=== PATIENT | male | born 1945 | race Caucasian/White ===

== ENCOUNTER 2024-03-16 08:41 | Outpatient (AMB) | payer OTHER, SELFPAY ==
--- NOTE | 2024-03-16 08:59 | MHC.OFFVIS ---
Vital Signs 03/16/24 09:00 Height 5 ft 7 in Weight 204 lb BMI 31.9 BP 116/66 Blood Pressure Location Rt brachial Position Sitting Respiration 16 Pulse 68 Pulse Source Pulse Oximeter Pulse Oximetry (%) 98 Oxygen Delivery Method Room Air Intake Visit Reasons: ENP-Neuropathy Intake Note: Pt presents to the office for new pt consultation for neuropathy. Inventory Taker Required: No Allergies ezetimibe [From Zetia] Allergy (Severe, Verified 03/16/24 09:00) Joint Pain tramadol [From Ultram] Allergy (Severe, Verified 03/16/24 09:00) Dizziness acetaminophen [From Percocet] Allergy (Unknown, Verified 03/16/24 09:00) Unknown oxycodone [From Percocet] Allergy (Unknown, Verified 03/16/24 09:00) Unknown Medication List - Last Reconciled 03/19/24 by TJ Rios aspirin 81 mg PO DAILY atorvastatin 20 mg PO DAILY coenzyme Q10 (Ultra CoQ10) 75 mg PO DAILY gabapentin 600 mg PO BID hydrochlorothiazide 25 mg PO DAILY lisinopril 10 mg PO DAILY metoprolol succinate ER 12.5 mg PO DAILY HPI Comments Details: 79-yr-old male presents for neurological evaluation of neuropathy. He would also like to discuss his sleep. Pt reports that he was diagnosed w/ BLE peripheral neuropathy in ~[address] Butt. His initial s/s were BLE feet tingling, burning pains, redness. Gradually overtime, he has developed numbness from his toes through mid-calf. He has episodes of increased tingling and burning pain at night which prevents him from sleeping, especially if he forgets to take the Gabapentin. Now when walking, he can feel pressure on his feet, but does not fully feel the ground. If he walks on a cold tile floor, he can feel the coldness. He does cycle- his feet do not bother him when he cycles. He has h/o lumbar lamine[place] [address] Mancia, however was told that BLE neuropathy was not r/t his lumbar spine. The lumbar repair was helpful, but his lumbar back can be flared up with certain activities or excess lifting. He takes Gabapentin 600-900mg q evening, as it takes about 3 hrs to take effect- as it makes him wake up in a daze and effects his cognition, and overall makes him more tired. In the past, he tried Amitriptyline 10mg qhs- states he had even worse side effects. He is complaint w/ ASA, statin. BP is normotensive. No h/o diabetes. Last HgAiC 5.7%. Last B12- > 2000 and folate- 15.9, CHO-126, TRG 160 H, HDL 44, LDL 50, TC-HDLC ratio- 2.9, Follows w/ Ivonne Akbar MD (Vascular Surgery) This is exacerbated by eating sugar and salt, or anything that causes inflammation. He is noticing that he is waking up earlier, so that while he used to get 8 hours of sleep, he now only gets about 6 hrs. He does not wake up w/ pain/burning in his feet. He goes to bed by 10:30pm, and falls asleep up to an hour later, and then wakes up around 5-5:30 or 6am. He used to take 1/2 naps- but now can only rest or take a 10-15 minute snooze after lunch- latest at 2pm. Takes 1-2 cups of coffee in the am. No soda, alcohol, marijuana, smoking. He endorses occasional mild feet swelling, feet still become red, feet become cold, can have leg cramps while walking and also at rest/sleep, legs can feel tired- but can walk > 2 miles w/ some breaks, slower overall. Some neck stiffness/tightness- such as when looking over his shoulder when on his bike, but no raditaiting pain. He denies restlessness, ulcers, snoring. He does ride an electric bicycle- ~10 miles at a time on a bike trail. In the past, he used to do long distance cycling. [facility] Medical History (Updated 03/19/24 @ 19:55 by TJ Rios) Urolithiasis Hyperlipidemia Obesity Essential hypertension Lumbar radiculitis Polyneuropathy Atrial tachycardia PAD (peripheral artery disease) Dyspnea Surgical History Hx of colonoscopy H/O hemorrhoidectomy Family History Mother Alzheimer dementia Father Myocardial infarct Brother Alcoholism Social History (Updated 03/16/24 @ 09:06 by Nicole Jones CMA) Household Members: Spouse Housing: House Alcohol intake: never Patient Tobacco Use Status: Never used Tobacco Review of Systems Const All systems reviewed & are unremarkable except as noted in HPI and below Physical Exam Vital Signs: Last Vital Signs Pulse 68 03/16/24 09:00 Resp 16 03/16/24 09:00 BP 116/66 03/16/24 09:00 Pulse Ox 98 03/16/24 09:00 Oxygen Delivery Method Room Air 03/16/24 09:00 BMI result Body Mass Index 31.9 Const General: cooperative and no acute distress Orientation/consciousness: patient oriented x3 HEENT Head: Yes normocephalic Resp Effort & Inspection: normal respiratory effort and able to speak in complete sentences Neuro Other: [facility] Mallampati stage IV BLE- decreased light touch from toes up through just below knees Decreased vibration sense- more so in the LLE Unable to do Tandem walk. Able to walk several steps on toes and heels. Left foot slightly cooler to touch than right- no edema, erythema, ulcers appreciated. General: patient oriented x3 and CN's II-XI intact bilaterally Gait exam (Neuro): Normal gait present Motor exam (neuro): 5/5 motor strength present throughout Deep tendon reflexes (DTR's): Right triceps reflex intensity grade: 2+, Left triceps reflex intensity grade: 2+, Rt Biceps (C5, C6): 2+, Left biceps reflex intensity grade: 2+, Right brachioradialis reflex intensity grade: 2+, Left brachioradialis reflex intensity grade: 2+, Right patellar reflex intensity grade: 2+ and Left patellar reflex intensity grade: 1+ Psych Appearance: grossly normal Mental Status: mental status grossly normal Speech and movement: Normal speech and movement present Affect: normal affect Attitude: cooperative Thought process: Normal thought process present Thought content: Normal thought content present Insight: Good insight present (Psych) Results Reviewed Results Reviewed: Arterial ultrasound 2022, DIAGNOSTIC TESTING: Arterial ultrasound showed slight elevated peak systolic velocity in the right femoral artery could represent mild stenosis, there is no significant stenosis or occlusion. Collateral vessels are noted in the region of the both anterior tibial arteries. Left leg multiple phasic waveforms throughout collaterals noted at the level of mid anterior tibial arteries. TOREY right leg 1. For, and left leg 1.5. Right toe index 0.7 left total index 1 2016, BLE eMG/NCS: IMPRESSION: 1. This is an abnormal study. 2. There is electrodiagnostic findings suggestive of a distal polyneuropathy, affecting both motor and sensory nerves, on BLE. It appears to be demyelinating in nature, but no conduction block seen. 3. No signs of lumbar radiculopathy or lumbosacral plexopathy. MRI OF LUMBAR SPINE W/WO CONTRAST Exam Date: 12/25/2018 1:40 PM Ordering Diagnosis: Lumbar radiculopathy ? MRI of the lumbosacral spine without intravenous contrast. History left radicular symptoms. Status post laminectomy at L4-5 level in 2014. Increasing pain radiating down to left leg. ? Examination was performed on 1.5 Tiffani magnet before administration of intravenous contrast, followed by postcontrast study after administration of 10 mL of Gadavist. Comparison with prior studies, latest 06/05/2018. ? The conus medullaris terminates at L1 level. Vertebral bodies are maintained in height. T12-L1 and L1-2 levels are unremarkable. ? At L2-3 level disc is decreased in T2 signal. There is bulging of the disc and hypertrophy of the facet joints. There is narrowing of the lateral recesses and L2 neural foramina with effacement of the L2 nerve roots. ? At L3-4 level disc is decreased in T2 signal. There is bulging of the disc and broad base bilateral lateral protrusion, more prominent to the left. There is compression of the L3 nerve roots, left more than right . There is hypertrophy of the facet joints and ligamentum flavum contributing to moderate spinal stenosis. ? At L4-5 level there is mild retrolisthesis of L4 over L5. There is diffuse bulging of the disc and marginal osteophytes. There is stenosis of the lateral recesses and thumb L4 neural foramina with possible compression of the L4 nerve roots. It is more prominent on the right. There is irregularity of the endplates with small Schmorl's nodes and Modic 1 changes with probably reactive enhancement. There is no abnormal enhancement within the disc or perivertebral soft tissues. There are stable post operative changes with evidence of central laminectomy. There is enhancement of the left L4 nerve root as well as mild enhancement of probably reactive in nature in the soft tissues surrounding the facet joints. There is moderate spinal stenosis. ? At L5-S1 level there is mild hypertrophy of the facet joints. There is no spinal stenosis or nerve root compression. ? When compared to his previous examination there is no significant interval change. ? CONCLUSIONS: Stable post operative and degenerative changes as detailed in the report. ? Reading Radiologist: Assessment & Plan Assessment & Plan (1) Polyneuropathy: Code(s): G62.9 - Polyneuropathy, unspecified Category: Medical (2) Sleep difficulties: Code(s): G47.9 - Sleep disorder, unspecified Category: Medical Plan Pt advised to undergo f/u BLE EMG/NCS to assess for progression of BLE motor and sensory, possibly demyelinating neuropathy. Consider additional work-up upon review of above. Trial OTC Alpha lipoic acid 600mg daily (or alternatively OTC Nervive Nerve Relief)- in hopes this helps painful paresthesias. Trial OTC Magnesium 250-500mg daily at bedtime- in hopes this helps leg cramps. Continue Gabapentin 600-900mg q evening. Previous trials: Amitriptyline 10mg qhs- not tolerated. Future considerations- adjusting Gabapentin, trial of pregabalin, topical analgesics. Encouraged to continue regular physical activity. Try increasing stretching/ROM, could consider gentle yoga. Will follow-up upon review of above and patient to follow-up in clinic in 6 months or sooner prn. Orders: Orders NE electromyogram (EMG) Today I73.9 - Peripheral vascular disease, unspecified, R20.1 - Hypoesthesia of skin, R20.2 - Paresthesia of skin, R25.2 - Cramp and spasm NE nerve conduction velocity Today I73.9 - Peripheral vascular disease, unspecified, R20.1 - Hypoesthesia of skin, R20.2 - Paresthesia of skin, R25.2 - Cramp and spasm Coding Level of Care Code New Pt Level 4 (51864) Diagnoses Polyneuropathy G62.9 Sleep difficulties G47.9
[2024-03-16 09:00] VITALS: BP 116/66; PULSE 68; RESP 16; O2SAT 98; BMI 31.9
== END 2024-03-16 10:28 | disposition home or self-care (01) ==
PROVIDERS: PCP Internal Medicine; Visit Provider Nurse Practitioner Family
DX: G62.9 Polyneuropathy, unspecified (principal); G47.9 Sleep disorder, unspecified
CPT/HCPCS: 99204

== ENCOUNTER → 2024-03-16 08:41 | Outpatient (BNVA) | payer OTHER, SELFPAY | PROVIDERS: PCP Internal Medicine; Visit Provider Nurse Practitioner Family | DX: G62.9 Polyneuropathy, unspecified (principal); G47.9 Sleep disorder, unspecified; R20.1 Hypoesthesia of skin; R20.2 Paresthesia of skin; R25.2 Cramp and spasm; I73.9 Peripheral vascular disease, unspecified | CPT/HCPCS: 99202 ==

== ENCOUNTER 2024-09-28 10:25 | Outpatient (AMB) | payer OTHER, SELFPAY ==
--- NOTE | 2024-09-28 10:29 | MHC.OFFVIS ---
Vital Signs 09/28/24 10:31 Height 5 ft 7 in Weight 204 lb BMI 31.9 BP 118/64 Blood Pressure Location Lt brachial Position Sitting Pulse 65 Pulse Source Pulse Oximeter Pulse Oximetry (%) 97 Oxygen Delivery Method Room Air Intake Visit Reasons: Follows Up Intake Note: Patient presents follow up polyneuropathy/sleep. 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 Accompanied by: Self / Same As Patient Allergies ezetimibe [From Zetia] Allergy (Severe, Verified 09/28/24 10:34) Joint Pain tramadol [From Ultram] Allergy (Severe, Verified 09/28/24 10:34) Dizziness acetaminophen [From Percocet] Allergy (Unknown, Verified 09/28/24 10:34) Unknown oxycodone [From Percocet] Allergy (Unknown, Verified 09/28/24 10:34) Unknown Medication List - Last Reconciled 09/28/24 by TJ Rios aspirin 81 mg PO DAILY atorvastatin 20 mg PO DAILY coenzyme Q10 (Ultra CoQ10) 75 mg PO DAILY gabapentin 600 mg PO BID hydrochlorothiazide 25 mg PO DAILY lisinopril 10 mg PO DAILY metoprolol succinate ER 12.5 mg PO DAILY pyridoxine (vitamin B6) 200 mg (2 x 100 mg) PO DAILY 60 days HPI Comments Details: The patient is a 79-year-old male presenting with neuropathy. Symptoms began 10 years prior with nerve overactivity at night and insomnia. He takes gabapentin for symptom management. The patient reports chronic fatigue and morning joint pain and swelling. patient also note that he has been recently evaluated for multiple Pulmonary nodules, which on biopsy were negative for malignancy however showed indications of inflammation.-. Patient asks if there is a potential link with inflammation. 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 Vitamin B12 levels high, Patient states he has been taking vitamin B12 supplements for some time. Vitamin B6 levels low <2- discussed that this could be contributing to neuropathy risk. rheumatoid factor elevated- in 70s. he has not previously seen rheumatology. 03/16/2024, initial HPI: 79-yr-old male presents for neurological evaluation of neuropathy. He would also like to discuss his sleep. Pt reports that he was diagnosed w/ BLE peripheral neuropathy in ~[address] Butt. His initial s/s were BLE feet tingling, burning pains, redness. Gradually overtime, he has developed numbness from his toes through mid-calf. He has episodes of increased tingling and burning pain at night which prevents him from sleeping, especially if he forgets to take the Gabapentin. Now when walking, he can feel pressure on his feet, but does not fully feel the ground. If he walks on a cold tile floor, he can feel the coldness. He does cycle- his feet do not bother him when he cycles. He has h/o lumbar l[place] [address] Mancia, however was told that BLE neuropathy was not r/t his lumbar spine. The lumbar repair was helpful, but his lumbar back can be flared up with certain activities or excess lifting. He takes Gabapentin 600-900mg q evening, as it takes about 3 hrs to take effect- as it makes him wake up in a daze and effects his cognition, and overall makes him more tired. In the past, he tried Amitriptyline 10mg qhs- states he had even worse side effects. He is complaint w/ ASA, statin. BP is normotensive. No h/o diabetes. Last HgAiC 5.7%. Last B12- > 2000 and folate- 15.9, CHO-126, TRG 160 H, HDL 44, LDL 50, TC-HDLC ratio- 2.9, Follows w/ Ivonne Akbar MD (Vascular Surgery) This is exacerbated by eating sugar and salt, or anything that causes inflammation. He is noticing that he is waking up earlier, so that while he used to get 8 hours of sleep, he now only gets about 6 hrs. He does not wake up w/ pain/burning in his feet. He goes to bed by 10:30pm, and falls asleep up to an hour later, and then wakes up around 5-5:30 or 6am. He used to take 1/2 naps- but now can only rest or take a 10-15 minute snooze after lunch- latest at 2pm. Takes 1-2 cups of coffee in the am. No soda, alcohol, marijuana, smoking. He endorses occasional mild feet swelling, feet still become red, feet become cold, can have leg cramps while walking and also at rest/sleep, legs can feel tired- but can walk > 2 miles w/ some breaks, slower overall. Some neck stiffness/tightness- such as when looking over his shoulder when on his bike, but no raditaiting pain. He denies restlessness, ulcers, snoring. He does ride an electric bicycle- ~10 miles at a time on a bike trail. In the past, he used to do long distance cycling. [facility] Medical History (Updated 09/28/24 @ 11:22 by TJ Rios) Urolithiasis Hyperlipidemia Obesity Essential hypertension Lumbar radiculitis Polyneuropathy Atrial tachycardia PAD (peripheral artery disease) Dyspnea Surgical History Hx of colonoscopy H/O hemorrhoidectomy Family History Mother Alzheimer dementia Father Myocardial infarct Brother Alcoholism Social History Household Members: Spouse Housing: House Alcohol intake: never Patient Tobacco Use Status: Never used Tobacco Physical Exam Vital Signs: Last Vital Signs Pulse 65 09/28/24 10:31 BP 118/64 09/28/24 10:31 Pulse Ox 97 09/28/24 10:31 Oxygen Delivery Method Room Air 09/28/24 10:31 BMI result Body Mass Index 31.9 Const General: cooperative and no acute distress Orientation/consciousness: patient oriented x3 Resp Effort & Inspection: normal respiratory effort and able to speak in complete sentences Neuro Other: [place] General: patient oriented x3 and CN's II-XI intact bilaterally Gait exam (Neuro): Normal gait present Psych Appearance: grossly normal Mental Status: mental status grossly normal Speech and movement: Normal speech and movement present Affect: normal affect Attitude: cooperative Assessment & Plan Assessment & Plan (1) Polyneuropathy: Comment: Apr 2024 BLE EMG/NCS: sensory axonal neuropathy Code(s): G62.9 - Polyneuropathy, unspecified Category: Medical (2) Elevated rheumatoid factor: Code(s): R76.8 - Other specified abnormal immunological findings in serum Category: Medical (3) Joint pain: Code(s): M25.50 - Pain in unspecified joint Category: Medical (4) Sleep difficulties: Code(s): G47.9 - Sleep disorder, unspecified Category: Medical Plan Discussion Notes During the visit, I discussed with the patient the importance of managing neuropathy symptoms with gabapentin and addressed the need to carefully monitor and supplement Vitamin B6 levels given its role in neuropathy and the risk if overcorrected. We covered the elevated Vitamin B12 levels due to supplementation and advised reduction. The elevated rheumatoid factor indicates a potential autoimmune arthritis, and I suggested a rheumatology consult to explore conditions such as rheumatoid arthritis. We also discussed the implications of inflammation and its connection to pulmonary nodules, recommending ongoing monitoring with his care team. I encouraged the patient to establish or reestablish care with a [facility] provider to determine if his neuropathy would be considered a service-connected conditions, considering exposures during his service. The patient was receptive to this management plan and agreed to follow up as discussed. Patient was informed and verbally consented to the use of an ambient scribe for clinic note documentation during this visit. Patient Instructions - Continue gabapentin 600 mg twice a day to manage neuropathy. - Start Vitamin B6 200 mg daily x2 months - then recheck vitamin B6 level in mid November- lab slip given to patient. - Reduce intake of Vitamin B12 supplements To 3 times per week. - Will request forensic examiner consultation for joint pain and elevated rheumatoid factor. - Follow-up with care team for pulmonary nodules monitoring as scheduled. - Consider contacting the [facility] for a potential evaluation of neuropathy as a service-connected condition. Will follow-up upon review of above and patient to follow-up in clinic in 6 months or sooner prn. Orders: Orders Vitamin B6 Today M25.50 - Pain in unspecified joint, R20.2 - Paresthesia of skin, R76.8 - Other specified abnormal immunological findings in serum Referrals Rheumatology Referral M25.50 - Pain in unspecified joint, R20.2 - Paresthesia of skin, R76.8 - Other specified abnormal immunological findings in serum Medications: New pyridoxine (vitamin B6) 200 mg (2 x 100 mg) PO DAILY 60 days 120 tabs 1RF Coding Level of Care Code Est Pt Level 4 (43618) Diagnoses Polyneuropathy G62.9 Elevated rheumatoid factor R76.8 Joint pain M25.50 Sleep difficulties G47.9
[2024-09-28 10:31] VITALS: BP 118/64; PULSE 65; O2SAT 97; BMI 31.9
--- OUTSIDE RECORDS SUMMARY | 2024-09-28 11:47 | XMS_ITS | Encounter Summary ---
Author Organization [facility] Address [address] [place] [address] Care Team Providers Care Welfare Manager Name Role Phone Dwayne Adams MD Primary Care Provider [phone] Reason for Visit * Reason Onset Date Comments Med Refill 09/26/2024 Encounter Details Date Type Department Care Team (Late st Contact Info) Description 09/26/2024 Telephone [facility] [address] [facility] [address] [place] [id number] Ena Mendosa MD [address] [place] [address] Med Refill Social History Tobacco Use Types Packs/Day Years Used Date Smoking Tobacco: Never Smokeless Tobacco: Never Alcohol Use Standard Drinks/Week Comments Not Currently 0 (1 standard drink = 0.6 oz pur e alcohol) Housing Instability Answer Date Recorde d Are you worried that in the next 2 months you may not have stable housing? No 09/16/2024 Food Access & Nutrition Answer Date Rec orded Do you have access to a vari ety of food including fruits and vegetables? Yes 09/16/2024 Access to Healthcare Answer Date Record ed Within the last 3 months, ho w many times did you visit the emergency department for your medical care? 0 09/16/2024 Health Literacy Answer Date Recorded How often do you need to hav e someone help you when you read instructions, pamphlets, or other written material from your doctor or pharmacy? Rarely 09/16/2024 Caregiver: How often do you need to have someone help you when you read instructions, pamphlets, or other written material from your doctor or pharmacy? Not on file 09/16/2024 Financial Risk Answer Date Recorded How hard is it for you to pa y for the very basics like food, housing, medical care, and air conditioning / heating? Somewhat hard 09/16/2024 Transportation Answer Date Recorded Has the lack of transportati on kept you from meetings, work, or from getting things needed for daily living? No Has the lack of transportati on kept you from medical appointments or from getting medications? No 09/16/2024 Social Isolation Answer Date Recorded How often do you feel lonely or isolated from th ose around you? Rarely 09/16/2024 Food Risk Answer Date Recorded Within the past 12 months we worried whether our food would run out before we got money to buy more. Never true 09/16/2024 Within the past 12 months th e food we bought just didn't last and we didn't have money to get more. Never true 09/16/2024 Dependent Care Answer Date Recorded Do you need help finding or paying for care for your loved ones. For example, children's program coordinator or elderly care for an older adult? No 09/16/2024 Education Answer Date Recorded Do you think completing more education or training, like finishing a GED, going to college, or learning a trade, would be helpful for you? Patient declined 09/16/2024 Employment and Income Answer Date Recor ded During the last four weeks, have you been actively looking for work? Patient declined 09/16/2024 Living Situation Answer Date Recorded What is your living situation? 0 09/16/2024 Interpersonal Safety Answer Date Record ed Physical Abuse 09/19/2024 Verbal Abuse 09/19/2024 Sex and Gender Information Value Date Recorded Sex Assigned at Male 06/19/2024 10:24 AM EST Legal Sex Male 8:32 PM EST Gender Identity Male 06/19/2024 10:24 AM EST Sexual Orientation Straight 09/11/2024 10 :13 AM EST Travel History Travel Start Travel End [place] 08/14/2024 09/14/2024 documented as of this encounter Ordered Prescriptions Prescription Sig Dispense Quantity Refills Last Filled Start Date End Date atorvastatin (LIPITOR) 20 mg tablet Take 1 tablet (20 mg total) by mouth at bedtime. 90 tablet 1 09/26/2024 documented in this encounter Progress Notes * Josselyn Alcocer MA - 09/26/2024 3:55 PM EDT Rx renewed. * Bridget Sandoval - 09/26/2024 2:33 PM EDT Patient is completely out of this medication. * Bridget Sandoval - 09/26/2024 2:20 PM EDT Patient called requesting refill for Atorvastatin 20 mg, one tablet daily. Please send 90 day supply to [facility]. documented in this encounter Plan of Treatment Upcoming Encounters Date Type Department Care Team (Late st Contact Info) Description 10/16/2024 10:30 AM EDT Office Visit Internal Medicine - [address] [phone] Dwayne Adams MD [address] [place] [id number] 05/16/2025 10:50 AM EDT Office Visit [facility] [address] [phone] Ena Mendosa MD [address] [place] [address] documented as of this encounter Visit Diagnoses Not on filedocumented in this encounter Discontinued Medications Medication Sig Discontinue Reason Start Date End Da te atorvastatin (LIPITOR) 20 mg tablet Take 1 tablet (20 mg total) by mouth at bedtime. Reorder 09/24/2022 09/26/2024 documented as of this encounter Additional Health Concerns Assessment Noted Time PHQ-9 Depression Total Score: 0 09/14/19 10:04 AM EST documented as of this encounter Care Teams Welfare Manager Relationship Specialty Start Date End Date Dwayne Adams MD [address] [place] [id number] PCP - General Internal Medicine 02/19/20 documented as of this encounter
--- OUTSIDE RECORDS SUMMARY | 2024-09-28 11:47 | XMS_ITS ---
Author Name [facility] Organization Unknown Results Test Name/Text Value Interpretation Date Range Source Citation Ref Lab Test The technical components of this case were performed at [address] [address] CLIA # [id number] Normal [id number] [facility] Service Cmnt-Imp [facility] ([id number]) for more information. Becker slides have been reviewed at the intradepartmental conference at [place], [place] on 09/20/24. Normal [id number] [facility] Citation Ref Lab Test The technical components of this case were performed at [address] [address] CLIA # [id number] Normal [id number] [facility] Clinical Information IN [place] Normal [id number] [facility] History of Medication Use Medication Directions Dispensed Refills Start Date End Date Status meperidine (PF) (DEMEROL) 25 mg/mL injection 12.5 mg 12.5 mg, intravenous, Every 15 min PRN, rigors, shivering, Starting on Tue09/19/24 at 1326, For 4 doses, Recovery (only) 5 active HYDROmorphone (DILAUDID) injection 0.5 mg 0.5 mg, intravenous, Every 15 min PRN, severe pain or when therapies for moderate pain were not effective, Starting on Tue09/19/24 at 1326, For 4 doses, Recovery (only) 5 active cyanocobalamin, vitamin B-12, (VITAMIN B-12 ORAL) Take 1 tablet by mouth 1 (one) time each day. active lactated Ringer's infusion 100 mL/hr, intravenous, Continuous, Starting on Tue09/19/24 at 1345, Recovery (only) 5 active ondansetron ODT (ZOFRAN-ODT) disintegrating tablet 4 mg [Order 1 Start] Name: ondansetron ODT (ZOFRAN-ODT) disintegrating tablet 4 mg Signed Summary: 4 mg, oral, Every 8 hours PRN, vomiting, nausea, Starting on Tue09/19/24 at 1326, Recovery (only), -Give IV if patient is unable to take orally. -If inadequate response within 30 minutes, proceed to next-debbie 5 active diphenhydrAMINE (BENADRYL) injection 25 mg 25 mg, intravenous, Every 15 min PRN, itching, Starting on Tue09/19/24 at 1326, For 2 doses, Recovery (only) 5 active aspirin 81 mg EC tablet Take 1 tablet (8 1 mg total) by mouth 1 (one) time each day. 2 active B complex (Vitamins B Complex) tablet Take 1 tablet by mouth 1 (one) time each day. active atorvastatin (LIPITOR) 20 mg tablet Take 1 tablet (20 mg total) by mouth 1 (one) time each day. 3 active diclofenac (Voltaren) 1 % topical gel Apply 1 g topically 1 (one) time each day if needed (for painful areas on feet/toes). 8 active metoprolol succinate (TOPROL-XL) 25 mg 24 hr tablet TAKE 1/2 TABLET BY MOUTH EVERY DAY 4 active docusate sodium (COLACE) 100 mg capsule Take 1 capsule (100 mg total) by mouth 2 (two) times a day. 4 active gabapentin (NEURONTIN) 300 mg capsule Take 1-4 capsules (300-1,200 mg total) by mouth at bedtime. active albuterol HFA (PROAIR HFA ; PROVENTIL HFA ; VENTOLIN HFA) 90 mcg/actuation inhaler Inhale 2 puffs every 4 (four) hours if needed for shortness of breath or wheezing. 1 active lisinopriL (PRINIVIL,ZESTRIL) 10 mg tablet TAKE 1 TABLET BY MOUTH EVERY DAY 5 active hydroCHLOROthiazide (HYDRODIURIL) 25 mg tablet TAKE 1 TABLET BY MOUTH DAILY 5 active omega-3 fatty acids (Super [place]-3) 1,000 mg capsule Take 2 tablets by mouth 1 (one) time each day. 3 active Problems Problem Status Onset Date Problem Type Date of Resolution Source Pulmonary nodule active 2024-07-09 ProblemAct C [facility] Obesity (BMI 30-39.9) active 2010-09-24 ProblemAct [facility] Urolithiasis active 2006-03-22 ProblemAct [facility] Lumbar radiculitis active 2015-04-29 ProblemAct [facility] PAD (peripheral artery disease) active 2021-10-13 ProblemAct [facility] History of basal cell carcinoma active 2018-10-11 ProblemAct [facility] Essential hypertension active 2015-04-29 ProblemAct [facility] Hyperlipidemia active 2007-06-26 ProblemAct [facility] Hiatal hernia active 2024-07-09 ProblemAct [facility] Atrial tachycardia active 2021-09-16 ProblemAct [facility] Pain active EncounterDiagnosisAct [facility] Dyspnea on exertion active 2023-01-10 ProblemAct [facility] Polyneuropathy active 2015-10-02 ProblemAct [facility] Immunizations Vaccine Date Source Lot Number Status Pneumococcal polysaccharide 23 valent (Pneumovax 23) 2yo and older 12/19/2012 [facility] [id number] com pleted Influenza trivalent, with pr eservative (Fluzone; Afluria) 6mo and older 04/29/2015 [facility] [id number] completed Influenza trivalent, 0.5mL ( Fluzone High-dose) 65yo and older 04/13/2018 [facility] [id number] comple yudi Influenza trivalent, 0.5mL ( Fluzone High-dose) 65yo and older 04/06/2019 [facility] [id number] comple yudi Tdap Tetanus diptheria acell ular pertussis (Boostrix; Adacel) 7yo and older 07/30/2011 [facility] [id number] completed Influenza trivalent, 0.5mL ( Fluzone High-dose) 65yo and older 04/23/2020 [facility] [id number] comple yudi Influenza trivalent, 0.5mL ( Fluzone High-dose) 65yo and older 05/26/2023 [facility] [id number] comple yudi Influenza trivalent, with pr eservative (Fluzone; Afluria) 6mo and older 03/30/2011 [facility] [id number] completed Influenza trivalent, 0.5mL ( Fluzone High-dose) 65yo and older 04/29/2021 [facility] [id number] comple yudi Pneumococcal conjugate 13 va lent (Prevnar 13, PCV13) 2mo and older 03/11/2016 [facility] [id number] complet ed Pfizer SARS-CoV-2 COVID-19, mRNA, LNP-S, preservative free 02/10/2022 [facility] completed Pneumococcal polysaccharide 23 valent (Pneumovax 23) 2yo and older 06/17/1993 [facility] com pleted Influenza trivalent, with pr eservative (Fluzone; Afluria) 6mo and older 08/16/2016 [facility] [id number] completed Influenza trivalent, with pr eservative (Fluzone; Afluria) 6mo and older 07/14/2009 [facility] [id number] completed Influenza trivalent, with pr eservative (Fluzone; Afluria) 6mo and older 05/19/2007 [facility] [id number] completed Pfizer SARS-CoV-2 COVID-19, mRNA, LNP-S, preservative free 10/14/2020 [facility] [id number] completed Influenza trivalent, with pr eservative (Fluzone; Afluria) 6mo and older 04/23/2013 [facility] [id number] completed Pfizer SARS-CoV-2 COVID-19, mRNA, LNP-S, preservative free 05/12/2021 [facility] [id number] completed Influenza trivalent, 0.5mL ( Fluzone High-dose) 65yo and older 03/29/2022 [facility] [id number] comple yudi Pfizer SARS-CoV-2 COVID-19, mRNA, LNP-S, preservative free 11/05/2020 [facility] [id number] completed Influenza trivalent, with pr eservative (Fluzone; Afluria) 6mo and older 03/26/2010 [facility] [id number] completed Influenza trivalent, with pr eservative (Fluzone; Afluria) 6mo and older 05/09/2014 [facility] [id number] completed Influenza trivalent, with pr eservative (Fluzone; Afluria) 6mo and older 04/24/2012 [facility] [id number] completed Influenza Quadravalent, MDCK , 0.5ml, with preservative (Flucelvax) 6mo and older 05/12/2017 [facility] [id number] completed Td Tetanus diptheria (Tdvax) 7yo and older 02/16/2017 [facility]_T HS[facility] [id number] completed Influenza trivalent, with pr eservative (Fluzone; Afluria) 6mo and older 04/23/2008 [facility] [id number] completed Zoster Live 01/22/2013 [facility] [id number] completed Encounters Encounter Type Encounter Reason Primary Diagnosis Location Date Ambulatory Pain, unspecified Pain, unspecified [facility] 09/19/2024 Ambulatory Solitary pulmonary nodule Solitary pulmonary nodule [facility] 09/19/2024 Care Team Organization Name Specialty Phone Email Start Date End Da te [facility] 09/25/[address] [facility] D[facility] 09/19/2024
--- OUTSIDE RECORDS SUMMARY | 2024-09-28 11:47 | XMS_ITS | Clinical Summary ---
Author Organization [facility] Address [address] [place] [address] Care Team Providers Care General Office Worker Name Role Phone Dwayne Adams MD Primary Care Provider [phone] Allergies Active Allergy Reactions Criticality Noted Date Comments Oxycodone-Acetaminophen 11/16/2023 Medications Medication Sig Dispensed Refills Start Date End Date Status atorvastatin (LIPITOR) tablet 20 mg Take 1 tablet (20 mg total) by mouth daily. 0 Active lisinopril (PRINIVIL,ZESTRIL) tablet 10 mg Take 1 tablet (10 mg total) by mouth daily. 0 Active hydroCHLOROthiazide (HYDRODIURIL) tablet 25 mg Take 1 tablet (25 mg total) by mouth daily. 0 Active metoprolol succinate (TOPROL-XL) 24 hr tablet 25 mg Take 0.5 tablets (12.5 mg total) by mouth daily. 0 Active gabapentin (NEURONTIN) 300 MG capsule Take 1 capsule (300 mg total) by mouth 3 (three) times a day. 0 Active Active Problems No known active problems Family History Medical History Relation Name Comments Cancer Sister Relation Name Status Comments Sister Social History Tobacco Use Types Packs/Day Years Used Date Smoking Tobacco: Never Smokeless Tobacco: Never Tobacco Cessation:Counseling Given: Not Answered Alcohol Use Standard Drinks/Week Comments Not Currently 0 (1 standard drink = 0.6 oz pur e alcohol) Sex and Gender Information Value Date Recorded Sex Assigned at Not on file Gender Identity Not on file Sexual Orientation Not on file Job Start Date Occupation Industry Not on file Not on file Not on file Last Filed Vital Signs Vital Sign Reading Time Taken Comments Blood Pressure 123/64 11/16/2023 11:04 AM EDT Pulse 66 11/16/2023 11:04 AM EDT Temperature 36.6 ??C (97.8 ??F) 11/16/2023 11:04 AM E DT Respiratory Rate - - Oxygen Saturation 99% 11/16/2023 11:04 AM EDT Inhaled Oxygen Concentration - - Weight 92.4 kg (203 lb 9.6 oz) 11/16/2023 11:04 AM EDT Height - - Body Mass Index - - Plan of Treatment Health Maintenance Due Date Last Done Comments Hepatitis C Screening 1945 Depression Screening 1959 Preventative Health Evaluation 1965 Shingrix-Zoster Vaccine (1 of 2) 1997 Fall Risk Assessment 01/06/2012 DTap / Tdap / Td (2 - Td or Tdap) 07/30/2021 07/30/2011 RSV Adult > 60+ Yrs or (1 - 1-dose 75+ series) 2022 COVID-19 Vaccine ( - season) 2024 02/10/2022, 05/12/2021, 11/05/2020, Additional history exists Influenza Vaccine (#1) 2024 , 03/29/2022, 04/29/2021, Additional history exists Pneumococcal Vaccine Completed 03/11/2016, 12/19/2012, 06/17/1993 Hepatitis B Vaccines Aged Out No long er eligible based on patient's age to complete this topic RSV Ped < 20 months Aged Out No longe r eligible based on patient's age to complete this topic Care Teams General Office Worker Relationship Specialty Start Date End Date Dwayne Adams MD [address] [place] [id number] PCP - General Internal Medicine 11/16/23
--- OUTSIDE RECORDS SUMMARY | 2024-09-28 11:47 | XMS_ITS | Encounter Summary ---
Author Organization [facility] Address [address] [place] [address] Care Team Providers Care Physical Scientist Name Role Phone Dwayne Adams MD Primary Care Provider [phone] Reason for Referral * Consultation (Routine) - Closed Specialty Diagnoses / Procedures Referred By Contact Referred To Contact Pulmonary Disease / Pulmonology Diagnoses Pulmonary nodule Dwayne Adams MD [address] [place] [address] Phone: tel: fax: Pulmonology [address] [place] [phone] Phone: tel: fax: Referral ID Status Reason Start Date Expiration Date V isits Requested Visits Authorized [id number] Closed Specialty Services Required 09/04/2024 09/04/2025 12 12 Reason for Visit * Reason Onset Date Comments Referral 09/04/2024 Encounter Details Date Type Department Care Team (Late st Contact Info) Description 09/04/2024 Telephone Internal Medicine - [facility] [address] [place] [phone] Dwayne Adams MD [address] [place] [phone] Referral Social History Tobacco Use Types Packs/Day Years Used Date Smoking Tobacco: Never Smokeless Tobacco: Never Alcohol Use Standard Drinks/Week Comments Yes 0 (1 standard drink = 0.6 oz pur e alcohol) Sex and Gender Information Value Date Recorded Sex Assigned at Male 06/19/2024 10:24 AM EST Legal Sex Male 8:32 PM EST Gender Identity Male 06/19/2024 10:24 AM EST Sexual Orientation Straight 09/11/2024 10 :13 AM EST Travel History Travel Start Travel End [place] 08/14/2024 09/14/2024 documented as of this encounter Progress Notes * Dwayne Adams MD - 09/04/2024 6:51 PM EST I have changed the referral to interventional pulmonology (Dr Saenz) * Abbi Mcallister MA - 09/04/2024 1:55 PM EST Last seen 05/09/24, next appt 09/17/24. Referral pended. * Georgia Juarez - 09/04/2024 1:48 PM EST Referral Request: Out of Network Referral What insurance does the patient have today? [place] [employer] Referrals cannot be processed if the insurance is not accurate. If the insurance listed above in red is NO BILLING INFORMATION FOUND FOR THIS ENCOUTNER The patients correct insurance must be obtained and registered in [facility] or their referral can not be processed. Is this a retro request? no. If yes for what date of service do you need the retro referral? not applicable Who is calling to request this referral? [facility] If the caller is not the patient, what is their name? Josh Ask the patient WHO referred them to this specialty: Patient self referred FIRST and LAST NAME of SPECIALIST PATIENT is seeing: Maru Saenz MD What specialty is this? 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 If YES, when? No Have you checked REVIEW or the APPT DESK to see if this referral has already been done or has visits left? yes Is this visit: Initial Visit Address of Specialist: [address] [place] [address] Phone # of Specialist: [phone] Fax #: (if applicable): [phone] Does patient have an appointment scheduled?: yes Date of appointment- (including a retro-request): 09-19-24 Is this appointment related to: Not MVA, worker compensation, or surgery related documented in this encounter Plan of Treatment Upcoming Encounters Date Type Department Care Team (Late st Contact Info) Description 10/16/2024 10:30 AM EDT Office Visit Internal Medicine - [address] [phone] Dwayne Adams MD [address] [place] [address] 05/16/2025 10:50 AM EDT Office Visit [facility] [address] [phone] Ena Mendosa MD [address] [place] [address] Scheduled Referrals Name Type Priority Associated Diagnoses Order Schedule Ambulatory referral to Interventional Pulmonology Outpatient Referral Routine Pulmonary nodule 1 Occurrences starting 09/04/2024 until 09/04/2025 documented as of this encounter Visit Diagnoses Diagnosis Pulmonary nodule- Primary Other diseases of lung, not elsewhere classified documented in this encounter Care Teams Physical Scientist Relationship Specialty Start Date End Date Dwayne Adams MD [address] [place] [phone] PCP - General Internal Medicine 02/19/20 documented as of this encounter
--- OUTSIDE RECORDS SUMMARY | 2024-09-28 11:47 | XMS_ITS | Encounter Summary ---
Author Organization [facility] Address [address] [place] [address] Care Team Providers Care Engineering Lab Technician Name Role Phone Dwayne Adams MD Primary Care Provider [phone] Reason for Visit * Auth/Cert (Routine) Specialty Diagnoses / Procedures Referred By Rebecca t Referred To Contact Diagnoses Lung nodule Procedures AZ BRONCHOSCOPY RIGID/FLEXIBLE COMPUTER ASSISTED IMAGE GUIDED NAVIGATION AZ BRONCHOSCOPY RIGID/FLEXIBLE W/TRANSBRONCHIAL LUNG BIOPSY(S) SINGLE LOBE AZ BRONCHOSCOPY RIGID/FLEXIBLE W/EBUS >=3 MEDIASTINAL/HILAR LYMPH NODES AZ BRONCHOSCOPY INCL FLUROSCOPIC GUIDANCE W PLCMNT FIDUCIAL MARKER SGL/MULT FLEXIBLE/ ROBOTIC ASSISTED BRONCHOSCOPY W. FNA, TBBX, BRUSH, BAL RADIAL EBUS LINEAR EBUS TBNA W. FLUOROSCOPY FIDUCIAL MARKER PLACEMENT Maru Saenz MD [address] [place] [address] Phone: tel: fax: [facility] Main OR [address] [place] [phone] Phone: tel: Referral ID Status Reason Start Date Expiration Date Visits Re quested Visits Authorized [id number] 1 1 Encounter Details Date Type Department Care Team (Latest Contact Info) Description 09/19/2024 7:55 AM EST - 09/19/2024 11:59 PM EST Hospital Encounter [facility] Xray [address] [place] [phone] Pain Discharge Disposition: Home or Self Care Social History Tobacco Use Types Packs/Day Years [...] care for your loved ones. For example, attendant child activity or elderly care for an older adult? [...] 08/14/2024 09/14/2024 documented as of this encounter Medications at Time of Discharge albuterol HFA (PROAIR HFA ; PROVENTIL HFA ; VENTOLIN HFA) 90 mcg/actuation inhaler Inhale 2 puffs every 4 (four) hours if needed for shortness of breath or wheezing. 04/29/2021 aspirin 81 mg EC tablet Take 1 tablet (81 mg total) by mouth 1 (one) time each day. 12/16/2021 cyanocobalamin, vitamin B-12, (VITAMIN B-12 ORAL) Take 1 tablet by mouth 1 (one) time each day. diclofenac (Voltaren) 1 % topical gel Apply 1 g topically 1 (one) time each day if needed (for painful areas on feet/toes). 06/12/2018 docusate sodium (COLACE) 100 mg capsule Take 1 capsule (100 mg total) by mouth 2 (two) times a day. 09/27/2013 gabapentin (NEURONTIN) 300 mg capsule Take 1-4 capsules (300-1,200 mg total) by mouth at bedtime. hydroCHLOROthiaz travis (HYDRODIURIL) 25 mg tablet TAKE 1 TABLET BY MOUTH DAILY 90 tablet 1 07/25/2024 lisinopriL (PRINIVIL,ZESTRI L) 10 mg tablet TAKE 1 TABLET BY MOUTH EVERY DAY 90 tablet 1 07/25/2024 metoprolol succinate (TOPROL-XL) 25 mg 24 hr tablet TAKE 1/2 TABLET BY MOUTH EVERY DAY 45 tablet 3 05/24/2024 atorvastatin (LIPITOR) 20 mg tablet Take 1 tablet (20 mg total) by mouth at bedtime. 09/24/2022 documented as of this encounter Discharge Disposition Disposition Code Departure Means Destination Home or Self Care documented in this encounter Plan of Treatment Upcoming Encounters Date Type Department Care Team (Late st Contact Info) Description 10/16/2024 10:30 AM EDT Office Visit Internal Medicine - [facility] [address] [place] [address] Dwayne Adams MD [address] [place] [address] 05/16/2025 10:50 AM EDT Office Visit [facility] [address] [facility] [address] [place] [address] Ena Mendosa MD [address] [place] [address] documented as of this encounter Procedures Procedure Name Priority Date/Time Associated Diagnosis Comments XR FLUORO UP TO 1 HOUR (STATISTICS)(NO REPORT) Routine 09/19/2024 12:40 PM EST Pain documented in this encounter Results * XR Fluoro Up To 1 Hour (Statistics)(No Report) (09/19/2024 12:40 PM EST) Narrative RIS PACS/VR - 09/19/2024 12:40 PM EST This order has been auto-finalized and does not contain a result. Maru Saenz MD IMG FLUOROSCOPY PROCEDURES Final Result RIS PACS/VR documented in this encounter Visit Diagnoses Diagnosis Pain Generalized pain documented in this encounter Additional Health Concerns Assessment Noted Time PHQ-9 Depression Total Score: 0 09/14/19 10:04 AM EST documented as of this encounter Care Teams Engineering Lab Technician Relationship Specialty Start Date End Date Dwayne Adams MD [address] [place] [phone] PCP - General Internal Medicine 02/19/20 documented as of this encounter
--- OUTSIDE RECORDS SUMMARY | 2024-09-28 11:47 | XMS_ITS | Encounter Summary ---
Author Organization [facility] Address [address] [place] [address] Care Team Providers Care Batting Machine Operator Name Role Phone Dwayne Adams MD Primary Care Provider [phone] Reason for Referral * Imaging (Routine) - Pending Review Specialty Diagnoses / Procedures Referred By Conttiarra t Referred To Contact Radiology Diagnoses Pulmonary nodule Procedures CT Chest wo Contrast Maru Saenz MD [address] [place] [address] Phone: tel: fax: [address] [address] Phone: tel: Referral ID Status Reason Start Date Expiration Date V isits Requested Visits Authorized [id number] Pending Review 09/25/2024 09/25/2025 1 1 Reason for Visit * Reason Comments Post-op S/p flex bronch Encounter Details Date Type Department Care Team (Late st Contact Info) Description 09/25/2024 1:30 PM EDT Office Visit Pulmonology - [place] [address] [facility] [address] [place] [address] Maru Saenz MD [address] [place] [phone] Pulmonary nodule (Primary Dx); Esophageal hernia; Gastroesophageal reflux disease without esophagitis Social History Tobacco Use Types Packs/Day Years [...] care for your loved ones. For example, child protection specialist or elderly care for an older adult? [...] EST Travel History Travel Start Travel End [place] 08/14/2024 09/14/2024 documented as of this encounter Last Filed Vital Signs Vital Sign Reading Time Taken Comments Blood Pressure 149/81 09/25/2024 1:17 PM EDT Pulse 75 09/25/2024 1:17 PM EDT Temperature 36.9 ??C (98.4 ??F) 09/25/2024 1:17 PM ED T Respiratory Rate - - Oxygen Saturation 98% 09/25/2024 1:17 PM EDT Inhaled Oxygen Concentration - - Weight 91.6 kg (202 lb) 09/25/2024 1:17 PM EDT Height 170.2 cm (5' 7 ) 09/25/2024 1:17 PM EDT Body Mass Index 31.64 09/25/2024 1:17 PM EDT documented in this encounter Ordered Prescriptions Prescription Sig Dispense Quantity Refills Last Filled Start Date End Date pantoprazole (Protonix) 40 mg EC tabletIndications: Esophageal hernia,Gastroesoph ageal reflux disease without esophagitis Take 1 tablet (40 mg total) by mouth 1 (one) time each day before breakfast. Do not crush, chew, or split. 30 each 09/25/2024 09/25/2025 documented in this encounter Progress Notes * Maru Saenz MD - 09/25/2024 1:30 PM EDT Images from the original note were not included. 09/25/2024 Edu Reyes : 1945 PCP: Dwayne Adams MD Chief Complaint:: lung nodule History of Present Illness: Edu Reyes is a 79 y.o. male never smoker with past medical history hypertension hyperlipidemia asthma well controlled, environmental allergies who presents as a referral from Dr. Alvarez for lung nodule. He was referred to Dr. Alvarez for increased shortness of breath manifesting as dyspnea on exertion with cycling. He had cardiac workup as well as pulmonary function testing; both unremarkable. CT chest was done for these symptoms 09/19/2023 at [facility] with 5 mm groundglass right upper lobe nodule and 8 mm left lower lobe nodule and 9 mm subsolid nodule in left lower lobe which is stable since 2019. CT chest December 2023 and June 2024 showed 6 mm subsolid nodule in left lower lobe which on our view remained largely unchanged. Other 6 mm smaller nodules were unchanged. On barium swallow was found to have paraesophageal hernia and moderate esophageal dysmotility as well as some silent aspiration. He reports feeling generally good health denies unintentional weight loss, decreased appetite, fevers, chills. He denies chest pain or hemoptysis. He does report shortness of breath as described above. He worked for [employer]. No family hx lung cancer. S/p flexible and robotic bronch with LLL nodule which was difficult to visualize intra-op but possible, fiducial marker placed. Biopsies show mild chronic inflammation and no malignancy. 11R, 7, 4L all negative on EBUS. He does report ongoing throat clearing, cough with clear sputum production clear. Denies burning reflux sensation, worsening of cough at night, sour taste in back of throat. He is otherwise doing very well. Reports he is following with Neurology re neuropathy of unknown etiology. Autoimmune testing done with Neurology with high RF, no overt sx of rheumatoid arthritis. Heis following up with Neuro this week. Allergies: Allergies Allergen Reactions Ezetimibe Muscular Issues Oxycodone-Acetaminophen bad headache Tramadol Hcl Other Dizzy, lightheaded Medications: Current Outpatient Medications Medication Instructions albuterol HFA (PROAIR HFA ; PROVENTIL HFA ; VENTOLIN HFA) 90 mcg/actuation inhaler 2 puffs, Every 4hours PRN aspirin 81 mg EC tablet 1 tablet, Daily atorvastatin (LIPITOR) 20 mg tablet 1 tablet, Nightly cyanocobalamin, vitamin B-12, (VITAMIN B-12 ORAL) 1 tablet, Daily diclofenac (VOLTAREN) 1 g, Daily PRN docusate sodium (COLACE) 100 mg, 2 times daily gabapentin (NEURONTIN) 300-1,200 mg, Nightly hydroCHLOROthiazide (HYDRODIURIL) 25 mg, oral, Daily lisinopriL (PRINIVIL,ZESTRIL) 10 mg, oral, Daily metoprolol succinate (TOPROL-XL) 12.5 mg, oral, Daily Past Medical History: Diagnosis Date Actinic keratosis, hx of DX:Actinic keratosis, hx of Essential hypertension 04/29/2015 DX:Essential hypertension History of basal cell carcinoma 10/11/2018 DX:History of basal cell carcinoma Hyperlipidemia 06/26/2007 DX:Hyperlipidemia Hypertension DX:Hypertension Impaired fasting glucose 06/26/2007 DX:Impaired fasting glucose Lumbar radiculitis 04/29/2015 DX:Lumbar radiculitis Mild intermittent asthma, uncomplicated 10/10/2023 DX:Mild intermittent asthma, uncomplicated Obesity 09/24/2010 DX:Obesity PAD (peripheral artery disease) ([facility]/HCC) 10/13/2021 DX:PAD (peripheral artery disease) ([facility]) Polyneuropathy 10/02/2015 DX:Polyneuropathy Pulmonary nodules 09/20/2023 DX:Pulmonary nodules Past Surgical History: Procedure Laterality Date BACK SURGERY PROCEDURE:BACK SURGERY BACK SURGERY 10/10/2023 PROCEDURE: HISTORICAL BACK SURGERY BASAL CELL CARCINOMA EXCISION Right 06/2024 right cheek CATARACT EXTRACTION, BILATERAL PROCEDURE:CATARACT EXTRACTION, BILATERAL COLONOSCOPY 06/21/2006 PROCEDURE: HISTORICAL COLONOSCOPY; COMMENT: Demetri; one hyperplastic polyp. OTHER SURGICAL HISTORY 1990 PROCEDURE: ---- HEMORRHOIDS ---- OTHER SURGICAL HISTORY 11/16/2018 PROCEDURE: HISTORICAL CA BASAL CELL; COMMENT: BCC between eyebrows resected Dr Brock PARS PLANA VITRECTOMY W/ REPAIR OF MACULAR HOLE Right PROCEDURE:PARS PLANA VITRECTOMY W/ REPAIR OF MACULAR HOLE Family History Problem Relation Name Age of Onset Cancer Sister Alzheimer's disease Mother lived till 86 Heart attack Father in his 80s Other (Other: ppm) Father in his 90s Hypertension Father Alcohol abuse Brother at 77 Colon cancer Mother's side aunt Social History Socioeconomic History Marital status: Spouse name: Not on file Number of children: Not on file Years of education: Not on file Highest education level: Not on file Occupational History Not on file Tobacco Use Smoking status: Never Smokeless tobacco: Never Substance and Sexual Activity Alcohol use: Not Currently Drug use: No Sexual activity: Not on file Other Topics Concern Not on file Social History Narrative July 2016: Retired. Used to work for the [employer]. Living in [place]. Feels safe at home. Review of Systems Constitutional: Negative. HENT: Positive for rhinorrhea. Eyes: Negative. Respiratory: Positive for shortness of breath. Cardiovascular: Negative. Gastrointestinal: Negative. Endocrine: Negative. Genitourinary: Negative. Musculoskeletal: Negative. Skin: Negative. Breast: negative. Allergic/Immunologic: Negative. Neurological: Negative. Hematological: Negative. Psychiatric/Behavioral: Negative. There were no vitals filed for this visit. There is no height or weight on file to calculate BMI. General: No acute distress HEENT: mucous membranes moist Neck: no JVD, supple neck Chest: Clear to auscultation, no wheezing or rales, no accessory muscle use CVS: S1-S2, regular rhythm, no murmurs Abdomen: Nondistended, nontender Extremities: No edema, warm Skin: No rashes or lesions Neuro: Alert and oriented x 3 Lab Results Component Value Date ALBUMIN 4.2 09/18/2024 ALT 25 09/18/2024 AST 18 09/18/2024 BUN 17 09/18/2024 CALCIUM 9.0 09/18/2024 CL 102 09/18/2024 CO2 26 09/18/2024 CREATININE 0.94 09/18/2024 HCT 44.6 09/18/2024 HGB 15.7 09/18/2024 HGBA1C 5.8 09/18/2024 PLT 209 09/18/2024 K 3.7 09/18/2024 NA 140 09/18/2024 WBC 7.1 09/18/2024 Pulmonary Function Results: Imaging: I personally reviewed imaging and the data revealed: IMPRESSION: Pulmonary nodules, similar to prior including 6 mm semisolid nodule in the left lower lobe. IMPRESSION: A small amount of silent aspiration occurred. There is a small to moderate-sized sliding axial hiatal hernia without visualized gastroesophageal reflux. Moderate esophageal dysmotility. Visit Diagnoses: 1. Pulmonary nodule Impression: LLL nodule, in low risk pt, slight spiculation vs irregular borders, incidentally found with persistence over 9 months. Other sub 6 mm nodules stable or resolved. Ddx includes infectious/inflammatory particularly with hx aspiration vs malignant. Using godinez risk calculator malignancy likelihood is 4-12% based on spiculation, thus intermed risk. Biopsy is reasonable but I also spoke to him about various etiologies, risks/benefits to biopsy vs surveillance, diagnostic yield, and possible results with future plan as per his request. Status post flexible and robotic bronchoscopy with left lower lobe nodule negative for malignancy, mild chronic inflammation. No malignancy. EBUS with lymph nodes negative. Will need clinical and radiographic follow-up to confirm that this is a diagnostic result. Fiducial marker was placed at nodule. Recommendations: -CT chest 6 months from prior and 3 months from now December 2024 with IP clinic visit afterward -Trial of PPI for 1 month, follow-up regarding cough. Subclinical reflux and silent aspiration is possible and is a potential etiology for his symptoms as well as nodules Today I have spent 40 minutes on this encounter with the following activities: Pre-visit review of chart Pre-visit review of imaging Reviewing patient provided information Personal face to face with patient (including extensive discussion counseling) History and physical examination Medication reconciliation Discussion of laboratory results and pathology Discussion with consulting/referring physician(s) Coordination of care including with office staff and nurse navigation Documentation. Maru Saenz MD [place] [address] Office [phone] documented in this encounter Plan of Treatment Upcoming Encounters Date Type Department Care Team (Late st Contact Info) Description 10/16/2024 10:30 AM EDT [facility] [address] [place] [address] Dwayne Adams MD [address] [place] [address] 05/16/2025 10:50 AM EDT Office Visit [facility] [address] [facility] [address] [place] [address] Ena Mendosa MD [address] [place] [address] Scheduled Orders Name Type Priority Associated Diagnoses Orde r Schedule CT Chest wo Contrast Imaging Routine Pulmonary nodule Expected: 12/26/2024, Expires: 09/25/2025 documented as of this encounter Visit Diagnoses Diagnosis Pulmonary nodule- Primary Other diseases of lung, not elsewhere classified Esophageal hernia Diaphragmatic hernia without mention of obstruction or gangrene Gastroesophageal reflux disease without esophagitis Esophageal reflux documented in this encounter Additional Health Concerns Assessment Noted Time PHQ-9 Depression Total Score: 0 09/14/19 25 10:04 AM EST documented as of this encounter Care Teams Batting Machine Operator Relationship Specialty Start Date End Date Dwayne Adams MD [address] [place] [phone] PCP - General Internal Medicine 02/19/20 documented as of this encounter
--- OUTSIDE RECORDS SUMMARY | 2024-09-28 11:47 | XMS_ITS | Encounter Summary ---
Author Organization [facility] Address [address] [place] [address] Care Team Providers Care Support Team Assoc Name Role Phone Dwayne Adams MD Primary Care Provider [phone] Reason for Referral * Consultation (Routine) - Pending Review Specialty Diagnoses / Procedures Referred By Rebecca t Referred To Contact Pulmonary Disease Diagnoses Pulmonary nodule Malignant neoplasm of left lung, unspecified part of lung ([facility]/HCC) Dwayne Adams MD [address] [place] [address] Phone: tel: fax: Referral ID Status Reason Start Date Expiration Date Visits Requested Visits Authorized [id number] Pending Review Specialty Services Required 09/11/2024 09/11/2025 1 1 Reason for Visit * Reason Onset Date Comments Referral 09/11/2024 Encounter Details Date Type Department Care Team (Late st Contact Info) Description 09/11/2024 Telephone Internal Medicine - [address] [address] Dwayne Adams MD [address] [place] [address] Referral Social History Tobacco Use Types Packs/Day [...] EST Travel History Travel Start Travel End [place] 08/14/2024 09/14/2024 documented as of this encounter Progress Notes * Dwayne Adams MD - 09/11/2024 7:37 PM EST Referral to pulmonology signed * April Edouard MA - 09/11/2024 2:33 PM EST Referral pending. * Mariela Delgado - 09/11/2024 2:22 PM EST Out of network request to [facility] npi # [id number] please fax referral directly to fax# [phone] Attn. Yuli * Mariela Delgado - 09/11/2024 2:14 PM EST Referral Request: What insurance does the patient have today? [employer] plan Referrals cannot be processed if the insurance is not accurate. If the insurance listed above in red is NO BILLING INFORMATION FOUND FOR THIS ENCOUTNER The patients correct insurance must be obtained and registered in [facility] or their referral can not be processed. Is this a retro request? no. If yes for what date of service do you need the retro referral? not applicable Who is calling to request this referral? [facility] If the caller is not the patient, what is their name? Josh Ask the patient WHO referred them to this specialty: Dr. Adams FIRST and LAST NAME of SPECIALIST PATIENT is seeing: Dr. Maru Saenz What specialty is this? pulmonology DIAGNOSIS Patient is being seen for (Not a body part or a procedure): left lung nodule/lung cancer Have you seen this SPECIALIST for this PROBLEM/DX before? If YES, when? No Have you checked REVIEW or the APPT DESK to see if this referral has already been done or has visits left? yes Is this visit: Initial Visit Address of Specialist: [address] [place] [address] Phone # of Specialist: [phone] Fax #: (if applicable): n/a Does patient have an appointment scheduled?: yes Date of appointment- (including a retro-request): 09/19/24 Is this appointment related to: n/a documented in this encounter Plan of Treatment Upcoming Encounters Date Type Department Care Team (Late st Contact Info) Description 10/16/2024 10:30 AM EDT Office Visit Internal Medicine - [address] [address] Dwayne Adams MD [address] [place] [address] 05/16/2025 10:50 AM EDT Office Visit [facility] [address] [address] Ena Mendosa MD [address] [place] [address] Scheduled Referrals Name Type Priority Associated Diagnoses Order Schedule Ambulatory referral to Pulmonology Outpatient Referral Routine Pulmonary nodule Malignant neoplasm of left lung, unspecified part of lung (CMS/HCC) 1 Occurrences starting 09/11/2024 until 09/11/2025 documented as of this encounter Visit Diagnoses Diagnosis Malignant neoplasm of left lung, unspecified part of lung (CMS/HCC)- Primary Pulmonary nodule Other diseases of lung, not elsewhere classified documented in this encounter Care Teams Support Team Assoc Relationship Specialty Start Date End Date Dwayne Adams MD [address] [place] [address] PCP - General Internal Medicine 02/19/20 documented as of this encounter
--- OUTSIDE RECORDS SUMMARY | 2024-09-28 11:47 | XMS_ITS | Clinical Summary ---
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 04/29/20 21 Active aspirin 81 mg EC tablet Take 1 tablet (81 mg total) by mouth 1 (one) time each day. 12/17/19 22 Active diclofenac (Voltaren) 1 % topical gel Apply 1 g topically 1 (one) time each day if needed (for painful areas on feet/toes). 06/12/20 18 Active docusate sodium (COLACE) 100 mg capsule Take 1 capsule (100 mg total) by mouth 2 (two) times a day. 09/28/19 14 Active gabapentin (NEURONTIN) 300 mg capsule Take 1-4 capsules (300-1,200 mg total) by mouth at bedtime. Active metoprolol succinate (TOPROL-XL) 25 mg 24 hr tablet TAKE 1/2 TABLET BY MOUTH EVERY DAY 45 tablet 3 05/24/20 24 Active hydroCHLOROthia zide (HYDRODIURIL) 25 mg tablet TAKE 1 TABLET BY MOUTH DAILY 90 tablet 1 07/25/19 25 Active lisinopriL (PRINIVIL,ZESTR IL) 10 mg tablet TAKE 1 TABLET BY MOUTH EVERY DAY 90 tablet 1 07/25/19 25 Active cyanocobalamin, vitamin B-12, (VITAMIN B-12 ORAL) Take 1 tablet by mouth 1 (one) time each day. Active pantoprazole (Protonix) 40 mg EC tabletIndicatio ns:Esophageal hernia,Gastroes ophageal reflux disease without esophagitis Take 1 tablet (40 mg total) by mouth 1 (one) time each day before breakfast. Do not crush, chew, or split. 30 each 09/26/19 25 026 Active atorvastatin (LIPITOR) 20 mg tablet Take 1 tablet (20 mg total) by mouth at bedtime. 90 tablet 1 09/27/19 25 Active atorvastatin (LIPITOR) 20 mg tablet Take 1 tablet (20 mg total) by mouth at bedtime. 09/25/19 23 025 Discontinued(Re order) B complex (Vitamins B Complex) tablet Take 1 tablet by mouth 1 (one) time each day. 025 Discontinued omega-3 fatty acids (Super [place]-3) 1,000 mg capsule Take 2 tablets by mouth 1 (one) time each day. 09/25/19 23 025 Discontinued Active Problems Problem Noted Date Diagnosed Date Pulmonary nodule 07/09/2024 Assessment & Plan (07/09/2024 1:04 PM EST): 79-year-old man with stable but persistent mixed pulmonary nodule at the base of the left lower lobe as well as a smooth perifissural nodule also in the left lower lobe. I did have a long discussion with him about the findings on his CT scans as described in the HPI. We also talked about pulmonary nodules in general and how their size, shape, and loom changer time affect our level of suspicion for malignancy. I have a moderate suspicion for the base of the left lower lobe nodule based on appearance and persistence over time while I think the other nodule in the left lower lobe that is perifissural is probably a lymph node. I did also go over the options when there is a pulmonary nodule including observation versus biopsy versus surgical resection. Given its position within the parenchyma of the lung I do not think surgical resection is a good option. After discussing observation and biopsy he wants to pursue biopsy. With that in mind, we will plan on referring him to interventional pulmonary to evaluate for possible left lower lobe robotic bronchoscopy and biopsy with EBUS. I did explain this procedure to him in some detail and he will have an appointment to see interventional pulmonary in this office in 1 to 2 weeks. All questions were answered. Hiatal hernia 07/09/2024 Dyspnea on exertion 01/10/2023 Overview (09/12/2023): Last Assessment & Plan: The patient has had a several year concern for dyspnea on exertion cardiology testing has ruled out multiple potential diagnoses. There does not appear to be a change in his status. It seems to be his baseline. One may wish to consider CT imaging or repeat chest x-ray. It is interesting that his EKG suggest low voltage which can correspond to pulmonary disease. He was never a smoker nor his parents. He had negative nuclear imaging in 2021 as well is echocardiogram that did not indicate heart failure, valvular abnormality he had a normal LVEF. Regarding wearing a monitor it was theorized that perhaps his supraventricular ectopy and atrial runs may have corresponded with his symptoms on the monitor when these occurred there were no symptoms entered. Continue to monitor as well as focusing on noncardiac etiologies. PAD (peripheral artery disease) 10/13/2021 Overview (09/12/2023): Last Assessment & Plan: Patient is followed by vascular surgery he is aware of the importance of walking. At times neuropathic symptoms can interfere with this however he can generally walk about a mile before he has to stop rest and pass discomforts. His LDL has improved switching to atorvastatin he continues on gabapentin for neuropathy in his feet and legs. Will be followed by vascular, commend continued efforts at walking. Atrial tachycardia 09/16/2021 Overview (09/12/2023): Last Assessment & Plan: The patient was noted to have supraventricular ectopy and some atrial runs on recent Holter monitor a low-dose beta-kimberly was initiated. He does not believe that by taking the beta-kimberly his breathing has gotten better or worse. Would argue that the minuscule amount of beta-blockade made any underlying mild intermittent asthma worse. Suggested continued monitoring and to be certain to notify us if symptoms are worsening. History of basal cell carcinoma 10/11/2018 Overview (09/12/2023): BCC 10/03 forehead (infiltrative) Polyneuropathy 10/02/2015 Essential hypertension 04/29/2015 Overview (09/12/2023): Last Assessment & Plan: The patient's blood pressure appears well controlled on current drug therapies. Recommend weight loss efforts walking for exercise low-sodium diet. Lumbar radiculitis 04/29/2015 Obesity (BMI 30-39.9) 09/24/2010 Hyperlipidemia 06/26/2007 Urolithiasis 03/22/2006 Encounters Date Type Department Care Team Description 09/26/2024 Telephone [facility] [address] [facility] [address] [place] [phone] Ena Mendosa MD Med Refill 09/25/2024 1:30 PM EDT Office Visit Pulmonology - [place] [address] [facility] [address] [place] [phone] Maru Saenz MD Pulmonary nodule (Primary Dx); Esophageal hernia; Gastroesophageal reflux disease without esophagitis 09/19/2024 11:26 AM EST Anesthesia Event [address] [phone] Bryant Reynolds DO Tran, Daniel, MD 09/19/2024 10:00 AM EST - 09/19/2024 11:45 AM EST Surgery [address] [address] Maru Saenz MD FLEXIBLE/ ROBOTIC ASSISTED BRONCHOSCOPY W. FNA, TBBX, BRUSH, BAL [[id number] (CPT??)] 09/19/2024 7:55 AM EST - 09/19/2024 11:59 PM EST Hospital Encounter [facility] Xray [address] [place] [address] Pain Discharge Disposition: Home or Self Care 09/19/2024 7:46 AM EST - 09/19/2024 3:13 PM EST Hospital Encounter [facility] Main OR [address] [place] [address] Maru Saenz MD Lung nodule Discharge Disposition: Home or Self Care 09/11/2024 Telephone [facility] [address] [place] [address] Dwayne Adams MD Referral 09/04/2024 Telephone [facility] [address] [place], [place] [address] [place] [address] Dwayne Adams MD Referral 08/03/2024 Telephone Pulmonology - [address] [place] [address] Maru Saenz MD Procedure (Prior [facility]/ [facility]) 07/20/2024 10:45 AM EST Consult Pulmonology - [place] [address] [phone] Maru Saenz MD Pulmonary nodule 07/09/2024 10:00 AM EST Office Visit Thoracic Surgery - [place] [address] [phone] Marti Alvarez MD Pulmonary nodule (Primary Dx); Hiatal hernia from Last 3 Months Immunizations Name Administration Dates Next Due Influenza Quadravalent, MDCK , 0.5ml, with preservative (Flucelvax) 6mo and older 05/12/2017 Influenza trivalent, 0.5mL ( Fluzone High-dose) 65yo and older 05/26/2023,03/29/2022,04/29/2021,04/23,04/06/2019,04/13/2018 Influenza trivalent, with pr eservative (Fluzone; Afluria) 6mo and older 08/16/2016,04/29/2015,05/09/2014,04/23,04/24/2012,03/30/2011,03/26/2010 ,07/14/2009,04/23/2008,05/19/2007 Pfizer SARS-CoV-2 COVID-19, mRNA, LNP-S, preservative free 02/10/2022,05/12/2021,11/05/2020,10/14 Pneumococcal conjugate 13 va lent (Prevnar 13, PCV13) 2mo and older 03/11/2016 Pneumococcal polysaccharide 23 valent (Pneumovax 23) 2yo and older 12/19/2012,06/17/1993 Td Tetanus diptheria (Tdvax) 7yo and older 02/16/2017 Tdap Tetanus diptheria acell ular pertussis (Boostrix; Adacel) 7yo and older 07/30/2011 Zoster Live 01/22/2013 Surgical History Surgery Date Site/Laterality Comments BACK SURGERY PROCEDURE:BACK SURGERY CATARACT EXTRACTION, BILATERAL PROCEDURE:CATARACT EXTRACTION, BILATERAL PARS PLANA VITRECTOMY W/ REPAIR OF MACULAR HOLE Right PROCEDURE:PARS PLANA VITRECTOMY W/ REPAIR OF MACULAR HOLE OTHER SURGICAL HISTORY 1990 PROCEDURE: ---- HEMORRHOIDS ---- COLONOSCOPY 06/21/2006 PROCEDURE: HISTORICAL COLONOSCOPY; COMMENT: Demetri; one hyperplastic polyp. OTHER SURGICAL HISTORY 11/16/2018 PROCEDURE: HISTORICAL CA BASAL CELL; COMMENT: BCC between eyebrows resected Dr Brock BACK SURGERY 10/10/2023 PROCEDURE: HISTORICAL BACK SURGERY BASAL CELL CARCINOMA EXCISION 06/17/2024 - 07/17/2024 Right right cheek Medical History Medical History Date Comments Hypertension DX:Hypertension Impaired fasting glucose 06/26/2007 DX:Impa ired fasting glucose Hyperlipidemia 06/26/2007 DX:Hyperlipidemi a Obesity 09/24/2010 DX:Obesity Lumbar radiculitis 04/29/2015 DX:Lumbar rad iculitis Essential hypertension 04/29/2015 DX:Essent ial hypertension Polyneuropathy 10/02/2015 DX:Polyneuropath y History of basal cell carcinoma 10/11/2018 DX:History of basal cell carcinoma Actinic keratosis, hx of DX:Acti amparo keratosis, hx of PAD (peripheral artery disea se) ([facility]/HCC) 10/13/2021 DX:PAD (peripheral artery di sease) ([facility]) Pulmonary nodules 09/20/2023 DX:Pulmonary n odules Mild intermittent asthma, uncomplicated 10/10/2023 DX:Mild intermittent asthma, uncomplicated Family History Medical History Relation Name Comments Alcohol abuse Brother at 77 Heart attack Father in his 80s Hypertension Father Other: ppm Father in his 90s Alzheimer's disease Mother lived ti 86 Colon cancer Mother's side aunt Cancer Sister Relation Name Status Comments Brother Father Mother Mother's side Sister Social History Tobacco Use Types Packs/Day [...] Record ed Within the last 3 months, kady avery many times did you visit the emergency [...] for your loved ones. For example, child guidance counselor or elderly care for an older adult? [...] Start Travel End [place] 08/14/2024 09/14/2024 Obstetrics History Last Filed Vital Signs Vital Sign Reading Time Taken Comments Blood Pressure 149/81 09/25/2024 1:17 PM EDT Pulse 75 09/25/2024 1:17 PM EDT Temperature 36.9 ??C (98.4 ??F) 09/25/2024 1:17 PM ED T Respiratory Rate 14 09/19/2024 2:30 PM EST Oxygen Saturation 98% 09/25/2024 1:17 PM EDT Inhaled Oxygen Concentration - - Weight 91.6 kg (202 lb) 09/25/2024 1:17 PM EDT Height 170.2 cm (5' 7 ) 09/25/2024 1:17 PM EDT Body Mass Index 31.64 09/25/2024 1:17 PM EDT Plan of Treatment Upcoming Encounters Date Type Department Care Team (Late st Contact Info) Description 10/16/2024 10:30 AM EDT Office Visit Internal Medicine - [facility] [address] [place] [phone] Dwayne Adams MD [address] [place] [address] 05/16/2025 10:50 AM EDT Office Visit [facility] - [facility] [address] [facility] [address] [place] [phone] Ena Mendosa MD [address] [place] [address] Health Maintenance Due Date Last Done Comments Zoster Vaccines (1 of 2) 03/19/2013 01/22/2013 RSV Immunization Patients 60+ Years Old (1 - 1-dose 75+ series) 2022 Cholesterol Screening (Lipid Panel) 06/26/2022 COVID-19 Vaccine ( season) 2024 02/10/2022, 05/12/2021, 11/05/2020, Additional history exists Depression Screening 09/14/2025 09/14/2024 Social Influencers of Health Screening 09/16/2025 09/16/2024 Hypertension/CHF/CAD Annual BMP Blood Test 09/18/2025 09/18/2024, 09/14/2024, 05/07/2024 Falls Risk Assessment 09/19/2025 09/19/2024 DTaP,Tdap,and Td Vaccines (3 - Td or Tdap) 02/16/2027 02/16/2017, 07/30/2011 Hepatitis C Screening Completed 03/26/2014 Pneumococcal Vaccine: 50+ Years Completed 03/11/2016, 12/19/2012, 06/17/1993 Influenza Vaccine Completed 05/09/2024, , 03/29/2022, Additional history exists HIB Vaccines Aged Out No longer eligi ble based on patient's age to complete this topic HPV Vaccines Aged Out No longer eligi ble based on patient's age to complete this topic Hepatitis A Vaccines Aged Out No long er eligible based on patient's age to complete this topic Hepatitis B Vaccines Aged Out No long er eligible based on patient's age to complete this topic IPV Vaccines Aged Out No longer eligi ble based on patient's age to complete this topic MMR Vaccines Aged Out No longer eligi ble based on patient's age to complete this topic Meningococcal ACWY Vaccine Aged Out N o longer eligible based on patient's age to complete this topic Meningococcal B Vacine Aged Out No lo nger eligible based on patient's age to complete this topic RSV Immunization Patients Under 20 months Aged Out No longer eligible based on patient's age to complete this topic Varicella Vaccines Aged Out No longer eligible based on patient's age to complete this topic Medical Devices Implanted Type Area Respiratory Director Device Identifier Shelf Expiration Date Model / Serial / Lot Marker Cobra Superlock - Sn/A - [id number] Implanted:Qt y: 1 on 09/19/2024 by Maru Saenz MD at [facility] Implants Left: Lung [employer] [id number] 04/16/2028 [id number] / N/A / [id number] Procedures Procedure Name Priority Date/Time Associated Diagnosis Comments PROTEIN, URINE, 24H Routine 09/25/2024 8 :57 AM EDT Peripheral nerve disorder Hypoesthesia Paresthesia PROTEIN, URINE, 24H Routine 09/25/2024 8 :57 AM EDT Peripheral nerve disorder Hypoesthesia Paresthesia PROTEIN ELECTROPHORESIS, URINE 24H Routine 09/25/2024 8:57 AM EDT Peripheral nerve disorder Hypoesthesia Paresthesia XR CHEST 1 VIEW STAT 09/19/2024 1:45 PM EST OXYGEN THERAPY, ADULT Routine 09/19/2024 1:27 PM EST XR FLUORO UP TO 1 HOUR (STATISTICS)(NO REPORT) Routine 09/19/2024 12:40 PM EST Pain TH AN ENDOTRACHEAL(NO CHARGE) Routine 09/19/2024 12:09 PM EST TISSUE EXAM Routine 09/19/2024 11:39 AM EST Lung nodule NON-GYNECOLOGIC CYTOLOGY Routine 09/19/2024 11:37 AM EST Lung nodule OH BRONCHOSCOPY INCL FLUROSCOPIC GUIDANCE W PLCMNT FIDUCIAL MARKER SGL/MULT 09/19/2024 11:08 AM EST Lung nodule OH BRONCHOSCOPY RIGID/FLEXIBLE W/EBUS >=3 MEDIASTINAL/HILAR LYMPH NODES 09/19/2024 11:08 AM EST Lung nodule OH BRONCHOSCOPY RIGID/FLEXIBLE W/TRANSBRONCHIAL LUNG BIOPSY(S) SINGLE LOBE 09/19/2024 11:08 AM EST Lung nodule OH BRONCHOSCOPY RIGID/FLEXIBLE COMPUTER ASSISTED IMAGE GUIDED NAVIGATION 09/19/2024 11:08 AM EST Lung nodule IMMUNOGLOBULINS IGG, IGA, IGM Routine 09/18/2024 10:47 AM EST Peripheral nerve disorder Hypoesthesia Paresthesia PROTEIN, TOTAL Routine 09/18/2024 10:47 AM EST Peripheral nerve disorder Hypoesthesia Paresthesia CBC WITH AUTO DIFFERENTIAL Routine 09/18/2024 10:47 AM EST Peripheral nerve disorder Hypoesthesia Paresthesia VITAMIN B1 Routine 09/18/2024 10:47 AM EST Peripheral nerve disorder Hypoesthesia Paresthesia VITAMIN B2 Routine 09/18/2024 10:47 AM EST Peripheral nerve disorder Hypoesthesia Paresthesia VITAMIN B3 Routine 09/18/2024 10:47 AM EST Peripheral nerve disorder Hypoesthesia Paresthesia VITAMIN B6 Routine 09/18/2024 10:47 AM EST Peripheral nerve disorder Hypoesthesia Paresthesia VITAMIN B12 AND FOLATE Routine 10:47 AM EST Peripheral nerve disorder Hypoesthesia Paresthesia EDUIN IFA WITH TITER AND PATTERN Routine 09/18/2024 10:47 AM EST Peripheral nerve disorder Hypoesthesia Paresthesia CBC AND DIFFERENTIAL Routine 09/18/2024 10:47 AM EST Peripheral nerve disorder Hypoesthesia Paresthesia HEMOGLOBIN A1C Routine 09/18/2024 10:47 AM EST Peripheral nerve disorder Hypoesthesia Paresthesia SEDIMENTATION RATE Routine 09/18/2024 10 :47 AM EST Peripheral nerve disorder Hypoesthesia Paresthesia C-REACTIVE PROTEIN Routine 09/18/2024 10 :47 AM EST Peripheral nerve disorder Hypoesthesia Paresthesia FERRITIN Routine 09/18/2024 10:47 AM EST Peripheral nerve disorder Hypoesthesia Paresthesia RHEUMATOID FACTOR Routine 09/18/2024 10: 47 AM EST Peripheral nerve disorder Hypoesthesia Paresthesia COMPREHENSIVE METABOLIC PANEL Routine 09/18/2024 10:47 AM EST Peripheral nerve disorder Hypoesthesia Paresthesia CBC WITH AUTO DIFFERENTIAL Routine 09/14/2024 10:11 AM EST Pulmonary nodule PROTHROMBIN TIME WITH INR Routine 09/14/2024 10:11 AM EST Pulmonary nodule BASIC METABOLIC PANEL Routine 09/14/2024 10:11 AM EST Pulmonary nodule CBC AND DIFFERENTIAL Routine 09/14/2024 10:11 AM EST Pulmonary nodule ECG 12-LEAD Routine 09/14/2024 9:56 AM EST Pulmonary nodule HEPATITIS C SCREENING Routine 03/26/2014 from Last 3 Months or Most Recently Relevant to Health Maintenance Results * Protein, urine, 24H (09/25/2024 8:57 AM EDT) Only the most recent of2 resultswithin the time period is included. Protein, Urine 9 mg/dL LAB CHEMISTRY METHOD 09/25/2024 5:29 PM [facility] Protein, 24H Ur 126.0 0.0 - 150.0 mg/24 hr LAB CHEMISTRY METHOD 09/25/2024 5:29 PM [facility] Urine Volume 1,400 mL LAB CHEMISTRY METHOD 09/25/2024 5:29 PM [facility] Collection Interval, Ur 24 hr LAB CHEMISTRY METHOD 09/25/2024 5:[address] [facility] Urine Urine specimen from urethra / Unknown Non-blood Collection / Unknown 09/25/2024 8:57 AM EDT 09/25/2024 8:57 AM EDT us Shasta Leigh [facility] URINE ORDERABLES Pari l Result [facility] [address] [place] [address], [place] [phone] * XR Chest 1 View (09/19/2024 1:45 PM EST) Anatomical Region Laterality Modality Body Radiographic Argenis ging 09/19/2024 2:25 PM EST Impressions 09/19/2024 2:26 PM EST The lungs are hypoinflated resulting in obscuration of the cardiac silhouette and pulmonary vasculature. No focal consolidation, pleural effusion, or pneumothorax. Report reviewed and signed by : Dr. Gaurang Cortes on 09/19/2024 2:26 PM. Workstation Name - [id number] -------- FINAL REPORT -------- Dictated By: Gaurang Cortes Dictated Date: 09/19/2024 14:25 ET Assigned Physician: Gaurang Cortes Reviewed and Electronically Signed By: Gaurang Cortes Signed Date: 09/19/2024 14:26 ET Workstation ID: [id number] Transcribed By: Self Edit Transcribed Date: 09/19/2024 14:25 ET Narrative 09/19/2024 2:26 PM EST CLINICAL HISTORY: postoperative care. ?? TECHNIQUE: ??Portable chest x-ray. COMPARISON: None. ?? FINDINGS: LINES AND TUBES: None. CARDIAC SILHOUETTE: The lungs are hypoinflated resulting in obscuration of the cardiac silhouette and pulmonary vasculature. Calcified atherosclerosis over the aortic arch. LUNGS/PLEURA: No pulmonary consolidations. No pleural effusions. No evidence of a pneumothorax. BONES: No aggressive or acute bony pathology. Procedure Note Gaurang Cortes MD - 09/19/2024 CLINICAL HISTORY: postoperative care. TECHNIQUE: Portable chest x-ray. COMPARISON: None. FINDINGS: LINES AND TUBES: None. CARDIAC SILHOUETTE: The lungs are hypoinflated resulting in obscuration ofthe cardiac silhouette and pulmonary vasculature. Calcifiedatherosclerosis over the aortic arch. LUNGS/PLEURA: No pulmonary consolidations. No pleural effusions. No evidence of a pneumothorax. BONES: No aggressive or acute bony pathology. IMPRESSION: The lungs are hypoinflated resulting in obscuration of the cardiacsilhouette and pulmonary vasculature. No focal consolidation, pleural effusion, or pneumothorax. Report reviewed and signed by : Dr. Gaurang Cortes on 09/19/2024 2:26 PM.Workstation Name - [id number] -------- FINAL REPORT -------- Dictated By: Gaurang Cortes Dictated Date: 09/19/2024 14:25 ET Assigned Physician: Gaurang Cortes Reviewed and Electronically Signed By: Gaurang Cortes Signed Date: 09/19/2024 14:26 ET Workstation ID: [id number] Transcribed By: Self Edit Transcribed Date: 09/19/2024 14:25 ET us Maru Saenz MD IMG XR PROCEDURES Final Re sult * XR Fluoro Up To 1 Hour (Statistics)(No Report) (09/19/2024 12:40 PM EST) Narrative RIS PACS/VR - 09/19/2024 12:40 PM EST This order has been auto-finalized and does not contain a result. us Maru Saenz MD IMG FLUOROSCOPY PROCEDURES Final Result RIS PACS/VR * TH AN ENDOTRACHEAL(NO CHARGE) (09/19/2024 12:09 PM EST) Narrative Bryant Reynolds DO - 09/19/2024 12:09 PM EST Bryant Reynolds DO ? 09/19/2024 12:12 PM General Information and Staff Patient location during procedure: OR Anesthesiologist: Fransisco Pedroza MD Performed: anesthesiologist Performed by: Bryant Reynolds DO Authorized by: Bryant Reynolds DO ?? Intubation Airway not difficult Urgency: elective Final Airway Details Successful airway: ETT Cuffed: yes Successful intubation technique: direct laryngoscopy Facilitating devices/methods: intubating stylet Endotracheal tube insertion site: oral Blade: Aicha Blade size: #3 ETT size (mm): 8.5 Cormack-Lehane Classification: grade I - full view of glottis Placement verified by: chest auscultation and capnometry Measured from: lips ETT to lips (cm): 21 Number of attempts at approach: 1Final airway type: endotracheal airway Indications and Patient Condition Indications for airway management: anesthesia Spontaneous Ventilation: absent Preoxygenated: yes Patient position: sniffing MILS maintained throughout Mask difficulty assessment: 2 - vent by mask + OA or adjuvant +/- NMBA Start Time: 09/19/2024 11:30 AMStop Time: 09/19/2024 11:30 AM us Bryant Reynolds DO ANESTHESIA ORDERABLES Edited Res ult - Final * Tissue exam (09/19/2024 11:39 AM EST) Final Diagnosis Lung, left lower lobe, cryo biopsy: Benign lung with mild chronic inflammation (see note and comment). No malignancy identified. Note: In the setting of semisolid lung mass, these findings may not be community health program representative of the targeted lesion. Clinical and radiological correlation is recommended. 09/21/2024 9:27 AM [facility] Comment Please see concurrent cytology specimen ([id number]) for more information. Becker slides have been reviewed at the intradepartmental conference at [place], [place] on 09/20/24. 09/21/2024 9:27 AM EST [facility] Gross Description A. Lung, Left Lower Lobe, CRYO LEFT LOWER LOBE: Received in formalin labeled parietal left lower lobe are multiple dark red fragments of tissue ranging in size from 0.1 to 0.3 cm. The specimen is filtered and submitted entirely 1 cassette labeled A1. JS 09/19/24 09/21/2024 9:27 AM EST [facility] Disclaimer The technical components of this case were performed at [address] [address] [place] # [id number] 09/21/2024 9:27 AM EST [facility] Tissue Structure of lower lobe of left lung / Unknown 09/19/2024 11:39 AM EST 09/19/2024 2:55 PM EST us Maru Saenz MD LAB PATHOLOGY ORDERABLES F inal Result [facility] [address] [place] [id number], * Non-gynecologic cytology (09/19/2024 11:37 AM EST) Final Diagnosis A. Lung, left lower lobe, fine-needle aspiration (ThinPrep and cell block): Benign (see comment). Reactive bronchial cells and chronic inflammation. B. Lung, left lower lobe, brushing (ThinPrep and cell block): Benign (see comment). Rare benign bronchial cells and chronic inflammation. C. Lung, left lower lobe, washing (ThinPrep and cell block): Benign (see comment). Rare benign bronchial cells and chronic inflammation. D. Lymph node, 11R, fine needle aspiration (ThinPrep and cell block): Negative for malignancy. Lymphocytes present, consistent with lymph node sampling. Benign bronchial cells. E. Lymph node, Level 7, fine needle aspiration (ThinPrep and cell block): Negative for malignancy. Lymphocytes present, consistent with lymph node sampling. Reactive bronchial cells. F. Lymph node, 4L, fine needle aspiration (ThinPrep and cell block): Negative for malignancy. Lymphocytes present, consistent with lymph node sampling. Benign bronchial cells. 09/21/2024 9:27 AM EST [facility] Comment Please see concurrent surgical specimen ([id number]) for more information. 09/21/2024 9:27 AM [facility] Specimen A Adequacy Satisfactory for evaluation 09/21/2024 9:27 AM [facility] Specimen B Adequacy Satisfactory for evaluation 09/21/2024 9:27 AM [facility] Specimen C Adequacy Satisfactory for evaluation 09/21/2024 9:27 AM [facility] Specimen D Adequacy Satisfactory for evaluation 09/21/2024 9:27 AM [facility] Specimen E Adequacy Satisfactory for evaluation 09/21/2024 9:27 AM [facility] Specimen F Adequacy Satisfactory for evaluation 09/21/2024 9:27 AM [facility] Clinical Information IN CYTO 09/21/2024 9:27 AM [facility] Gross Description A. Lung, Left Lower Lobe, FNA LEFT LOWER LOBE: Received: 35 cc pink CytoLyt with tissue fragments for ThinPrep and Cell Block. B. Lung, Left Lower Lobe, BRUSH LEFT LOWER LOBE: Received: 30 cc pink CytoLyt with brush and tissue fragments for ThinPrep and Cell Block. C. Lung, Left Lower Lobe, WASH LEFT LOWER LOBE: Received: 35 cc slightly pink CytoLyt for ThinPrep and Cell Block. D. Lymph Node, 11R: Received: 35 cc very slightly pink CytoLyt with tissue fragments for ThinPrep and Cell Block. E. Lymph Node, LEVEL 7: Received: 40 cc very slightly pink CytoLyt with tissue fragments for ThinPrep and Cell Block. F. Lymph Node, 4L: Received: 35 cc very slightly pink CytoLyt with light and dark flecks for ThinPrep and Cell Block. 09/21/2024 9:27 AM [facility] Disclaimer The technical components of [place] [address] CLIA # [id number] 09/21/2024 9:27 AM [facility] Fine Needle Aspirate Structure of lower lobe of left lung / Unknown 09/19/2024 11:37 AM EST 09/19/2024 3:14 PM EST Comment:IN CYTO Brushing, function (observable entity) Structure of lower lobe of left lung / Unknown 09/19/2024 11:38 AM EST 09/19/2024 3:18 PM EST Comment:IN CYTO Specimen obtained by lavage (specimen) Structure of lower lobe of left lung / Unknown 09/19/2024 11:38 AM EST 09/19/2024 3:18 PM EST Comment:IN CYTO Specimen obtained by fine needle aspiration procedure (specimen) Lymph node specimen / Unknown 09/19/2024 12:46 PM EST 09/19/2024 3:18 PM EST Comment:IN CYTO Specimen obtained by fine needle aspiration procedure (specimen) Lymph node specimen / Unknown 09/19/2024 12:55 PM EST 09/19/2024 3:20 PM EST Comment:IN CYTO Specimen obtained by fine needle aspiration procedure (specimen) Lymph node specimen / Unknown 09/19/2024 1:05 PM EST 09/19/2024 3:21 PM EST Comment:IN CYTO Maru Saenz MD LAB CYTOLOGY ORDERABLES Fi nal Result [facility] [address] [place] [address], [place] [phone] * (ABNORMAL) Vitamin B12 and folate (09/18/2024 10:47 AM EST) Vitamin B-12 >2,000(H) 250 - 900 pcg/mL LAB CHEMISTRY METHOD 09/18/2024 3:[address] [facility] Folate 17.2(H) 2.8 - 17.0 ng/ml LAB CHEMISTRY METHOD 09/18/2024 3:[address] [facility] Blood Venous blood specimen / Unknown Venipuncture / Unknown 09/18/2024 10:47 AM EST 09/18/2024 10:47 AM EST Shasta BAYP LAB BLOOD ORDERABLES Pari l Result [facility] [address] [place] [address], * EDUIN IFA with titer and pattern (09/18/2024 10:47 AM EST) [facility] EDUIN Negative Negative 09/19/2024 12:[address] [facility] Blood Venous blood specimen / Unknown Venipuncture / Unknown 09/18/2024 10:47 AM EST 09/18/2024 10:47 AM EST Shasta Leigh ESTATE MANAGER LAB BLOOD ORDERABLES Pari l Result Performing Organization Address [facility]/ZIP Co de Phone Number [facility] [address] [place] [address], [place] [phone] * (ABNORMAL) CBC auto differential (09/18/2024 10:47 AM EST) Only the most recent of2 resultswithin the time period is included. [facility] WBC 7.1 4.8 - 10.8 K/mcL LAB HEMETOLOGY METHOD 09/18/2024 12:[address] [facility] RBC 4.80 4.50 - 5.50 M/mcL LAB HEMETOLOGY METHOD 09/18/2024 12:[address] [facility] Hemoglobin 15.7 13.5 - 17.5 g/dL LAB HEMETOLOGY METHOD 09/18/2024 12:[address] [facility] Hematocrit 44.6 42.0 - 54.0 % LAB HEMETOLOGY METHOD 09/18/2024 12:[address] [facility] MCV 93.3 79.0 - 98.0 FL LAB HEMETOLOGY METHOD 09/18/2024 12:[address] [facility] MCH 32.8(H) 27.0 - 32.0 pcg LAB HEMETOLOGY METHOD 09/18/2024 12:[address] [facility] MCHC 35.2 32.0 - 37.0 g/dL LAB HEMETOLOGY METHOD 09/18/2024 12:[address] [facility] RDW 12.8 11.0 - 15.0 % LAB HEMETOLOGY METHOD 09/18/2024 12:[address] [facility] Platelets 209 130 - 400 K/mcL LAB HEMETOLOGY METHOD 09/18/2024 12:[address] [facility] MPV 9.7 7.0 - 11.0 FL LAB HEMETOLOGY METHOD 09/18/2024 12:[address] [facility] NRBC 0.0 <1.0 % LAB HEMETOLOGY METHOD 09/18/2024 12:[address] [facility] NRBC Absolute 0.00 <0.10 K/mcL LAB HEMETOLOGY METHOD 09/18/2024 12:[address] [facility] Neutrophils Relative 57.7 % LAB HEMETOLOGY METHOD 09/18/2024 12:[address] [facility] Lymphocytes Relative 27.1 % LAB HEMETOLOGY METHOD 09/18/2024 12:[address] [facility] Monocytes Relative 10.1 % LAB HEMETOLOGY METHOD 09/18/2024 12:[address] [facility] Eosinophils Relative 3.3 % LAB HEMETOLOGY METHOD 09/18/2024 12:[address] [facility] Basophils Relative 0.8 % LAB HEMETOLOGY METHOD 09/18/2024 12:[address] [facility] Immature Granulocytes Relative 1.0 % LAB HEMETOLOGY METHOD 09/18/2024 12:[address] [facility] Neutrophils Absolute 4.08 1.50 - 7.00 K/mcL LAB HEMETOLOGY METHOD 09/18/2024 12:[address] [facility] Lymphocytes Absolute 1.91 1.00 - 5.00 K/mcL LAB HEMETOLOGY METHOD 09/18/2024 12:[address] [facility] Monocytes Absolute 0.71 0.20 - 1.00 K/mcL LAB HEMETOLOGY METHOD 09/18/2024 12:[address] [facility] Eosinophils Absolute 0.23 0.00 - 0.50 K/mcL LAB HEMETOLOGY METHOD 09/18/2024 12:[address] [facility] Basophils Absolute 0.06 0.00 - 0.20 K/mcL LAB HEMETOLOGY METHOD 09/18/2024 12:[address] [facility] Immature Granulocytes Absolute 0.07(H) 0.00 - 0.03 K/mcL LAB HEMETOLOGY METHOD 09/18/2024 12:[address] [facility] Blood Venous blood specimen / Unknown Venipuncture / Unknown 09/18/2024 10:47 AM EST 09/18/2024 10:47 AM EST Shasta Leigh ESTATE MANAGER LAB BLOOD ORDERABLES Prai blanc Result [facility] [address] [place] [address], * Vitamin B3 (09/18/2024 10:47 AM EST) Nicotinic Acid None Detected ng/mL 09/27/2024 8:07 AM EDT [facility] Comment: Reporting Limit: 10 ng/mL Synonym(s): Niacor(R); Niaspan(R); Slo-Niacin(R); Vitamin B3 Nicotinic acid occurs naturally in plants and animals and is also added to many foods as a vitamin supplement. Due to the large variability in the metabolism of nicotinic acid, the dosing preparation used (immediate-release vs. extended-release), and the mg doses used, the serum concentrations may range from less than 10 ng/mL to about 03219 ng/mL. After oral administration of an immediate-release tablet, peak plasma concentrations are achieved in 30 to 60 min; after oral administration of an extended-release capsule, peak plasma concentrations occur in 4 to 5 hours. The plasma half-life of nicotinic acid is about 1 hour. In one study, fasting plasma concentrations were reported to be approximately 10 ng/mL. In another study it was reported that the administration of a single 1000 mg extended-release tablet resulted in mean nicotinic acid concentrations of less than 50 ng/mL. The administration of multiple oral doses of nicotinic acid (for a total of 2000 mg) resulted in the following mean peak nicotinic acid plasma concentrations: 25 mg every 10 min. for 80 doses (over 13 hours): 1100 ng/mL 50 mg every 10 min. for 40 doses (over 6.5 hours): 5400 ng/mL 100 mg every 10 min. for 20 doses (over 3 hours): 22035 ng/mL This test should be considered as a therapeutic drug monitoring/toxicological test associated with niacin (Vitamin B3) supplementation. Care should be taken in the use of this test for basal Vitamin B3 determination. The supplied reference comment does not reflect normal, endogenous Vitamin B3 concentrations. Analysis by High Performance Liquid Chromatography/ Tandem Mass Spectrometry (LC-MS/MS) Nicotinamide 21 ng/mL 09/27/2024 8:07 AM EDT [facility] Comment: Reporting Limit: 10 ng/mL Synonym(s): Niacinamide; Vitamin B3; Niacin(R) Nicotinamide is a metabolite of nicotinic acid, is the common form of niacin included in vitamin preparations and is also added to many foods as a vitamin supplement. Due to the large variability in the metabolism of nicotinic acid, plasma concentrations of this metabolite also are variable. In one study, fasting plasma concentrations were reported to be approximately 40 ng/mL. In another study it was reported that the administration of a single 1000 mg extended-release tablet of nicotinic acid resulted in a mean peak Nicotinamide concentration of 400 ng/mL between 5 and 10 hours post dose, decreasing to about 100 ng/mL by 16 hours post dose. The administration of multiple oral doses of nicotinic acid (for a total of 2000 mg) resulted in the following mean peak Nicotinamide plasma concentrations: 25 mg every 10 min. for 80 doses (over 13 hours): 1300 ng/mL 50 mg every 10 min. for 40 doses (over 6.5 hours): 2300 ng/mL 100 mg every 10 min. for 20 doses (over 3 hours): 2000 ng/mL This test should be considered as a therapeutic drug monitoring/toxicological test associated with niacin (Vitamin B3) supplementation. Care should be taken in the use of this test for basal Vitamin B3 determination. The supplied reference comment does not reflect normal, endogenous Vitamin B3 concentrations. Analysis by High Performance Liquid Chromatography/ Tandem Mass Spectrometry (LC-MS/MS) Nicotinuric Acid None Detected ng/mL 09/27/2024 8:07 AM [facility] Comment: Reporting Limit: 10 ng/mL Synonym(s): Niacin Metabolite Nicotinuric acid is a metabolite of nicotinic acid and nicotinamide. Due to the large variability in the metabolism of nicotinic acid and nicotinamide, plasma concentrations of this metabolite also are variable. In one study it was reported that the administration of a single 1000 mg extended-release tablet of nicotinic acid resulted in a mean peak nicotinuric acid concentration of over 1000 ng/mL within 2 hours post dose, decreasing to less than 200 ng/mL by 6 hours and less than 50 ng/mL by 12 hours post dose. The administration of multiple oral doses of nicotinic acid (for a total of 2000 mg) resulted in the following mean peak nicotinuric acid plasma concentrations: 25 mg every 10 min. for 80 doses (over 13 hours): 950 ng/mL 50 mg every 10 min. for 40 doses (over 6.5 hours): 2300 ng/mL 100 mg every 10 min. for 20 doses (over 3 hours): 5100 ng/mL This test should be considered as a therapeutic drug monitoring/toxicological test associated with niacin (Vitamin B3) supplementation. Care should be taken in the use of this test for basal Vitamin B3 determination. The supplied reference comment does not reflect normal, endogenous Vitamin B3 concentrations. Analysis by High Performance Liquid Chromatography/ Tandem Mass Spectrometry (LC-MS/MS) This test was developed and its performance characteristics determined by [facility]. ??It has not been cleared or approved by the [place] Food and Drug Administration. Digital data review may have taken place remotely by qualified [facility] staff utilizing a secure VPN connection for some or all of the reported results. This is in accordance with and follows CLIA regulations. Testing performed at [facility] [address] [place] [id number] CLIA [id number] Blood Venous blood specimen / Unknown Venipuncture / Unknown 09/18/2024 10:47 AM EST 09/18/2024 10:47 AM EST Shasta Leigh [facility] BLOOD ORDERABLES Pari l Result Performing Organization Address [facility] Co de Phone Number [facility] [address] [place] [address] * Vitamin B2 (09/18/2024 10:47 AM EST) Pathologist [facility] Vitamin B2 (Riboflavin) 10.5 6.2 - 39.0 nmol/L 09/26/2024 3:27 PM EDT [facility] Comment: Vitamin supplementation within 24 hours prior to blood draw may affect the accuracy of results. This test was developed and its analytical performance characteristics have been determined by [employer] [place], [place]. It has not been cleared or approved by the FDA. This assay has been validated pursuant to the CLIA regulations and is used for clinical purposes. Test Performed by [facility], [facility], [address] [place] [address] Maurizio Mi M.D., Ph.D., Director of Laboratories , CLIA [id number] Blood Venous blood specimen / Unknown Venipuncture / Unknown 09/18/2024 10:47 AM EST 09/18/2024 10:47 AM EST Shasta Leigh [facility] BLOOD ORDERABLES Pari l Result Performing Organization Address City/[facility] Co de Phone Number [facility] [address] [place] [address] * Sedimentation rate (09/18/2024 10:47 AM EST) Pathologist [facility] Sed Rate 13 0 - 20 mm/hr LAB HEMETOLOGY METHOD 09/18/2024 12:[address] [facility] Blood Venous blood specimen / Unknown Venipuncture / Unknown 09/18/2024 10:47 AM EST 09/18/2024 10:47 AM EST Shasta Leigh [facility] BLOOD ORDERABLES Pari l Result Performing Organization Address City/[facility]/ZIP Co de Phone Number [facility] [address] [place] [address], [place] [phone] * (ABNORMAL) Rheumatoid factor (09/18/2024 10:47 AM EST) Pathologist [facility] Rheumatoid Factor 73.0(H) <15.0 I Unit/mL LAB CHEMISTRY METHOD 09/18/2024 3:[address] [facility] Blood Venous blood specimen / Unknown Venipuncture / Unknown 09/18/2024 10:47 AM EST 09/18/2024 10:47 AM EST Shasta Leigh [facility] BLOOD ORDERABLES Pari l Result Performing Organization Address [facility]/ZIP Co de Phone Number [facility] [address] [place] [address], [place] [phone] * Immunoglobulins IgG, IgA, IgM (09/18/2024 10:47 AM EST) [facility] Total IgG 879 549 - 1,584 mg/dL LAB CHEMISTRY METHOD 09/19/2024 12:[address] [facility] IgA 157 61 - 348 mg/dL LAB CHEMISTRY METHOD 09/19/2024 12:[address] [facility] IgM 76 23 - 259 mg/dL LAB CHEMISTRY METHOD 09/19/2024 12:[address] [facility] Blood Venous blood specimen / Unknown Venipuncture / Unknown 09/18/2024 10:47 AM EST 09/18/2024 10:47 AM EST Shasta Leigh [facility] BLOOD ORDERABLES Pari l Result Performing Organization Address City/[facility]/ZIP Co de Phone Number [facility] [address] [place] [address], [place] [phone] * C-reactive protein (09/18/2024 10:47 AM EST) [facility] C-Reactive Protein <0.29 <=0.50 mg/dL LAB CHEMISTRY METHOD 09/18/2024 3:[address] [facility] Blood Venous blood specimen / Unknown Venipuncture / Unknown 09/18/2024 10:47 AM EST 09/18/2024 10:47 AM EST Shasta Leigh [facility] BLOOD ORDERABLES Pari l Result Performing Organization Address City/[facility]/ZIP Co de Phone Number [facility] [address] [place] [address], [place] [phone] * Vitamin B1 (09/18/2024 10:47 AM EST) [facility] Vitamin B1 Whole Blood 65 38 - 122 ug/L 09/24/2024 10:16 AM EDT [facility] Comment: This test was developed and the performance characteristics determined by [facility]. It has not been cleared or approved by the FDA. The laboratory is regulated under CLIA as qualified to perform high-complexity testing. This test is used for patient testing purposes. It should not be regarded as investigational or for research. Test performed at [facility], [address] , [place], [place] ??[address] ? [phone] Renetta Delgado MD, PhD - Associate Accountant Blood Venous blood specimen / Unknown Venipuncture / Unknown 09/18/2024 10:47 AM EST 09/18/2024 10:47 AM EST Shasta Lu [facility] BLOOD ORDERABLES Pari l Result [facility] [address] [place] [address] * (ABNORMAL) Vitamin B6 (09/18/2024 10:47 AM EST) Pathologist [facility] Vitamin B6 (Pyridoxine) Level <2(L) 5 - 50 ug/L 09/26/2024 2:12 PM EDT [facility] Comment: This test was developed and the performance characteristics determined by [facility]. It has not been cleared or approved by the FDA. The laboratory is regulated under CLIA as qualified to perform high-complexity testing. This test is used for patient testing purposes. It should not be regarded as investigational or for research. Test performed at [facility], [address] , [place], [place] ??[address] ? [phone] Renetta Delgado MD, PhD - Associate Accountant Blood Venous blood specimen / Unknown Venipuncture / Unknown 09/18/2024 10:47 AM EST 09/18/2024 10:47 AM EST Shasta Leigh [facility] BLOOD ORDERABLES Pari l Result [facility] [address] [place] [address] * Protein, total (09/18/2024 10:47 AM EST) [facility] Total Protein 7.3 6.0 - 8.0 g/dL LAB CHEMISTRY METHOD 09/18/2024 3:[address] [facility] Blood Venous blood specimen / Unknown Venipuncture / Unknown 09/18/2024 10:47 AM EST 09/18/2024 10:47 AM EST Shasta Leigh [facility] BLOOD ORDERABLES Pari l Result [facility] [address] [place] [address], * Hemoglobin A1c (09/18/2024 10:47 AM EST) Pathologist [facility] Hemoglobin A1C 5.8 <6.5 % LAB CHEMISTRY METHOD 09/18/2024 8:[address] [facility] Mean Bld Glu Estim. 120 mg/dL LAB CHEMISTRY METHOD 09/18/2024 8:[address] [facility] Blood Venous blood specimen / Unknown Venipuncture / Unknown 09/18/2024 10:47 AM EST 09/18/2024 10:47 AM EST Shasta Biggsington [facility] BLOOD ORDERABLES Pari l Result Performing Organization Address City/[facility]/ZIP Co de Phone Number [facility] [address] [place] [address], [place] [phone] * Ferritin (09/18/2024 10:47 AM EST) [facility] Ferritin 110 26 - 388 ng/mL LAB CHEMISTRY METHOD 09/18/2024 3:[address] [facility] Blood Venous blood specimen / Unknown Venipuncture / Unknown 09/18/2024 10:47 AM EST 09/18/2024 10:47 AM EST Shasta Biggsington [facility] BLOOD ORDERABLES Pari l Result Performing Organization Address City/[facility]/ZIP Co de Phone Number [facility] [address] [place] [address], [place] [phone] * (ABNORMAL) Comprehensive metabolic panel (09/18/2024 10:47 AM EST) [facility] Sodium 140 133 - 145 mmol/L LAB CHEMISTRY METHOD 09/18/2024 3:[address] [facility] Potassium 3.7 3.5 - 5.5 mmol/L LAB CHEMISTRY METHOD 09/18/2024 3:[address] [facility] Chloride 102 96 - 110 mmol/L LAB CHEMISTRY METHOD 09/18/2024 3:[address] [facility] CO2 26 21 - 32 mmol/L LAB CHEMISTRY METHOD 09/18/2024 3:[address] [facility] Anion Gap 12(H) 3 - 11 LAB CHEMISTRY METHOD 09/18/2024 3:[address] [facility] Glucose 144(H) 70 - 100 mg/dL LAB CHEMISTRY METHOD 09/18/2024 3:[address] [facility] BUN 17 5 - 25 mg/dL LAB CHEMISTRY METHOD 09/18/2024 3:[address] [facility] Creatinine 0.94 0.70 - 1.30 mg/dL LAB CHEMISTRY METHOD 09/18/2024 3:[address] [facility] eGFR 83 >=60 mL/min/1. 73m2 LAB CHEMISTRY METHOD 09/18/2024 3:[address] [facility] Comment:Calculation based on the??Chronic Kidney Disease Epidemiology Collaboration (CKD-EPI) equation refit??without adjustment for race. BUN/Creatinine Ratio 18.1 LAB CHEMISTRY METHOD 09/18/2024 3:[address] [facility] Calcium 9.0 8.5 - 10.5 mg/dL LAB CHEMISTRY METHOD 09/18/2024 3:[address] [facility] AST (SGOT) 18 10 - 42 unit/L LAB CHEMISTRY METHOD 09/18/2024 3:[address] [facility] ALT (SGPT) 25 10 - 60 unit/L LAB CHEMISTRY METHOD 09/18/2024 3:[address] [facility] Alkaline Phosphatase 61 42 - 121 unit/L LAB CHEMISTRY METHOD 09/18/2024 3:[address] [facility] Total Protein 7.3 6.0 - 8.0 g/dL LAB CHEMISTRY METHOD 09/18/2024 3:[address] [facility] Albumin 4.2 3.2 - 5.0 g/dL LAB CHEMISTRY METHOD 09/18/2024 3:[address] [facility] Total Bilirubin 0.4 0.0 - 1.4 mg/dL LAB CHEMISTRY METHOD 09/18/2024 3:[address] [facility] Blood Venous blood specimen / Unknown Venipuncture / Unknown 09/18/2024 10:47 AM EST 09/18/2024 10:47 AM EST Shasta Leigh ESTATE MANAGER LAB BLOOD ORDERABLES Pari l Result Performing Organization Address City/[facility]/ZIP Co de Phone Number [facility] [address] [place] [address], [place] [phone] * Prothrombin time with INR (09/14/2024 10:11 AM EST) [facility] Protime 12.0 10.6 - 13.9 sec LAB COAGULATION METHOD 09/14/2024 11:[address] [facility] INR 1.0 LAB COAGULATION METHOD 09/14/2024 11:[address] [facility] Blood Venous blood specimen / Unknown Venipuncture / Unknown 09/14/2024 10:11 AM EST 09/14/2024 10:44 AM EST Maru Saenz MD LAB BLOOD ORDERABLES Final Result Performing Organization Address City/[facility]/ZIP Co de Phone Number [facility] [address] [place] [address], [place] [phone] * Basic metabolic panel (09/14/2024 10:11 AM EST) [facility] Sodium 140 133 - 145 mmol/L LAB CHEMISTRY METHOD 09/14/2024 11:[address] [facility] Potassium 3.9 3.5 - 5.5 mmol/L LAB CHEMISTRY METHOD 09/14/2024 11:[address] [facility] Chloride 106 96 - 110 mmol/L LAB CHEMISTRY METHOD 09/14/2024 11:[address] [facility] CO2 25 21 - 32 mmol/L LAB CHEMISTRY METHOD 09/14/2024 11:[address] [facility] Anion Gap 9 3 - 11 LAB CHEMISTRY METHOD 09/14/2024 11:[address] [facility] Glucose 97 70 - 100 mg/dL LAB CHEMISTRY METHOD 09/14/2024 11:[address] [facility] BUN 15 5 - 25 mg/dL LAB CHEMISTRY METHOD 09/14/2024 11:[address] [facility] Creatinine 0.89 0.70 - 1.30 mg/dL LAB CHEMISTRY METHOD 09/14/2024 11:[address] [facility] eGFR 88 >=60 mL/min/1. 73m2 LAB CHEMISTRY METHOD 09/14/2024 11:[address] [facility] Comment:Calculation based on the??Chronic Kidney Disease Epidemiology Collaboration (CKD-EPI) equation refit??without adjustment for race. BUN/Creatinine Ratio 16.9 LAB CHEMISTRY METHOD 09/14/2024 11:[address] [facility] Calcium 9.4 8.5 - 10.5 mg/dL LAB CHEMISTRY METHOD 09/14/2024 11:[address] [facility] Blood Venous blood specimen / Unknown Venipuncture / Unknown 09/14/2024 10:11 AM EST 09/14/2024 10:45 AM EST us Maru Saenz MD LAB BLOOD ORDERABLES Final Result [facility] [address] [place] [address], * ECG 12 lead (09/14/2024 9:56 AM EST) Ventricular Rate ECG 65 BPM GEMUSE Atrial Rate 65 BPM GEMUSE P-R Interval 148 ms GEMUSE QRS Duration 94 ms GEMUSE Q-T Interval 420 ms GEMUSE QTc 436 ms GEMUSE P Wave [place] 33 degrees GEMUSE R [place] 5 degrees GEMUSE T [place] 32 degrees GEMUSE ECG Interpretation Normal sinus rhythm Low voltage QRS Abnormal ECG When compared with ECG of 03-DEC-2014 10:01, No significant change was found Confirmed by DAVIE PATTERSON ([id number]) on 09/15/2024 9:55:00 AM GEMUSE 09/14/2024 9:56 AM EST 09/15/2024 9:55 AM EST Maru Saenz MD ECG ORDERABLES Final Resu lt GEMUSE * Hepatitis C Screening (03/26/2014) Hepatitis C Screening negative Historical Provider HEALTH MAINTENANCE Final Result from Last 3 Months or Most Recently Relevant to Health Maintenance Insurance [facility] Care Teams Stabilizing Machine Operator Relationship Specialty Start Date End Date Dwayne Adams MD [address] [place] [id number] PCP - General Internal Medicine 02/19/20
--- OUTSIDE RECORDS SUMMARY | 2024-09-28 11:47 | XMS_ITS | Encounter Summary ---
Author Organization [facility] Address [address] [place] [address] Care Team Providers Care Chart Picker Name Role Phone Dwayne Adams MD Primary Care Provider [phone] Reason for Visit * Reason Onset Date Comments Procedure 08/03/2024 Prior Auth/ Us F [employer]ily Health Plan Encounter Details Date Type Department Care Team (Late st Contact Info) Description 08/03/2024 Telephone Pulmonology - [address] [phone] Maru Saenz MD [address] [place] [phone] Procedure (Prior Auth/ Us Family Health Plan) Social History Tobacco Use Types Packs/Day Years [...] as of this encounter Progress Notes * Kathrine Dominique - 08/03/2024 11:41 AM EST GUSTAVO form was field out. Janet is out of network and Dr Saenz, cpt code 52558 is not reimbursable. We change for cpt code 76304 per Doug. Currently Pending. documented in this encounter Plan of Treatment Upcoming Encounters Date Type Department Care Team (Late st Contact Info) Description 10/16/2024 10:30 AM EDT Office Visit Internal Medicine - [address] [phone] Dwayne Adams MD [address] [place] [id number] 05/16/2025 10:50 AM EDT Office Visit [facility] [address] [facility] [address] [place] [address] Ena Mendosa MD [address] [place] [address] documented as of this encounter Visit Diagnoses Not on filedocumented in this encounter Care Teams Chart Picker Relationship Specialty Start Date End Date Dwayne Adams MD [address] [place] [id number] PCP - General Internal Medicine 02/19/20 documented as of this encounter
--- OUTSIDE RECORDS SUMMARY | 2024-09-28 11:48 | XMS_ITS | Encounter Summary ---
Author Organization [facility] Address [address] [place] [address] Care Team Providers Care Strategy Director Name Role Phone Dwayne Adams MD Primary Care Provider [phone] Reason for Visit * Auth/Cert (Routine) Specialty Diagnoses / Procedures Referred By Rebecca t Referred To Contact Diagnoses Lung nodule Procedures LA BRONCHOSCOPY RIGID/FLEXIBLE COMPUTER ASSISTED IMAGE GUIDED NAVIGATION LA BRONCHOSCOPY RIGID/FLEXIBLE W/TRANSBRONCHIAL LUNG BIOPSY(S) SINGLE LOBE LA BRONCHOSCOPY RIGID/FLEXIBLE W/EBUS >=3 MEDIASTINAL/HILAR LYMPH NODES LA BRONCHOSCOPY INCL FLUROSCOPIC GUIDANCE W PLCMNT FIDUCIAL MARKER SGL/MULT FLEXIBLE/ ROBOTIC ASSISTED BRONCHOSCOPY W. FNA, TBBX, BRUSH, BAL RADIAL EBUS LINEAR EBUS TBNA W. FLUOROSCOPY FIDUCIAL MARKER PLACEMENT Maru Saenz MD [address] [place] [phone] Phone: tel: fax: [facility] [place] [address] [place] [phone] Phone: tel: Referral ID Status Reason Start Date Expiration Date Visits Re quested Visits Authorized [id number] 1 1 Encounter Details Date Type Department Care Team (Latest Contact Info) Description 09/19/2024 7:46 AM EST - 09/19/2024 3:13 PM EST Hospital Encounter [facility] [place] [address] [place] [phone] Maru Saenz MD [address] [place] [address] Lung nodule Discharge Disposition: Home or Self Care Social [...] for your loved ones. For example, child nurse or elderly care for an older adult? [...] EST Travel History Travel Start Travel End [place] 08/14/2024 09/14/2024 documented as of this encounter Last Filed Vital Signs Vital Sign Reading Time Taken Comments Blood Pressure 109/81 09/19/2024 2:45 PM EST Pulse 65 09/19/2024 2:45 PM EST Temperature 36.7 ??C (98 ??F) 09/19/2024 1:30 PM EST Respiratory Rate 14 09/19/2024 2:30 PM EST Oxygen Saturation 99% 09/19/2024 2:45 PM EST Inhaled Oxygen Concentration - - Weight 89.8 kg (198 lb) 09/14/2024 1:00 PM EST Height 170.2 cm (5' 7 ) 09/14/2024 1:00 PM EST Body Mass Index 31.01 09/14/2024 1:00 PM EST documented in this encounter Discharge Summaries * Anh Lakhani RN - 09/14/2024 1:50 PM EST Pre-Surgery Instructions: Medication Instructions aspirin 81 mg EC tablet Other (see Additional Instructions) atorvastatin (LIPITOR) 20 mg tablet Other (see Additional Instructions) cyanocobalamin, vitamin B-12, (VITAMIN B-12 ORAL) Other (see Additional Instructions) diclofenac (Voltaren) 1 % topical gel Other (see Additional Instructions) docusate sodium (COLACE) 100 mg capsule Other (see Additional Instructions) gabapentin (NEURONTIN) 300 mg capsule Other (see Additional Instructions) hydroCHLOROthiazide (HYDRODIURIL) 25 mg tablet Other (see Additional Instructions) lisinopriL (PRINIVIL,ZESTRIL) 10 mg tablet Other (see Additional Instructions) metoprolol succinate (TOPROL-XL) 25 mg 24 hr tablet Take morning of surgery with sip of water, no other fluids albuterol HFA (PROAIR HFA ; PROVENTIL HFA ; VENTOLIN HFA) 90 mcg/actuation inhaler Continue to takeas ordered/prescribed by your pcp Additional Instructions: Med instructions listed as other are to be held on DOS documented in this encounter Discharge Instructions * Discharge Instructions* Osiel Mckeon RN - 09/19/2024 1:17 PM EST You will have a follow up appointment with Dr. Saenz on 09/25/24 in clinic. BRONCHOSCOPY DISCHARGE INSTRUCTIONS: You may eat/drink after 330pm today. Notify your physician if you experience blood in sputum, coughing up blood, chest pain, pressure orshortness of breath. You should not smoke for 24 hours. You will follow-up with Dr. Stapleton/Dr. Saenz as an outpatient. * Attachments The following attachments cannot be sent through Care Everywhere. * Bronchoscopy: Post-op (Turkish) documented in this encounter Medications at Time of Discharge [...] Discharge Disposition Disposition Code Departure Means Destination Comment s Home or Self Care Car Home documented in this encounter H&P Notes * Maru Saenz MD - 09/19/2024 11:00 AM EST History Of Present Illness (include Chief Complaint): James Reyes is a 79 y.o. male presenting with lung nodule. Past Medical History: He has a past medical history of Actinic keratosis, hx of, Essential hypertension (04/29/2015), History of basal cell carcinoma (10/11/2018), Hyperlipidemia (06/26/2007), Hypertension, Impaired fasting glucose (06/26/2007), Lumbar radiculitis (04/29/2015), Mild intermittent asthma, uncomplicated (10/10/2023), Obesity (09/24/2010), PAD (peripheral artery disease) (CMS/HCC) (10/13/2021), Polyneuropathy (10/02/2015), and Pulmonary nodules (09/20/2023). He has no past medical history of Personal history of malignant melanoma of skin. Surgical History: He has a past surgical history that includes Back surgery; Cataract extraction, bilateral; Pars plana vitrectomy w/ repair of macular hole (Right); Other surgical history (1990); Colonoscopy (06/21/2006); Other surgical history (11/16/2018); Back surgery (10/10/2023); and Excision basal cell carcinoma (Right, 06/2024). Family History: family history includes Alcohol abuse in his brother; Alzheimer's disease in his mother; Cancer in his sister; Colon cancer in his mother's side; Heart attack in his father; Hypertension in his father; Other: ppm in his father. Social History: He reports that he has never smoked. He has never used smokeless tobacco. He reports that he does not currently use alcohol. He reports that he does not use drugs. Allergies: Ezetimibe, Oxycodone-acetaminophen, and Tramadol hcl Home Medications: Medications Prior to Admission Medication Sig Dispense Refill Last Dose/Taking aspirin 81 mg EC tablet Take 1 tablet (81 mg total) by mouth 1 (one) time each day. 09/18/2024 Morning atorvastatin (LIPITOR) 20 mg tablet Take 1 tablet (20 mg total) by mouth at bedtime. 09/18/2024 cyanocobalamin, vitamin B-12, (VITAMIN B-12 ORAL) Take 1 tablet by mouth 1 (one) time each day. 09/14/2024 diclofenac (Voltaren) 1 % topical gel Apply 1 g topically 1 (one) time each day if needed (for painful areas on feet/toes). Past Week docusate sodium (COLACE) 100 mg capsule Take 1 capsule (100 mg total) by mouth 2 (two) times a day.09/14/2024 gabapentin (NEURONTIN) 300 mg capsule Take 1-4 capsules (300-1,200 mg total) by mouth at bedtime. 09/18/2024 hydroCHLOROthiazide (HYDRODIURIL) 25 mg tablet TAKE 1 TABLET BY MOUTH DAILY 90 tablet 1 09/18/2024 lisinopriL (PRINIVIL,ZESTRIL) 10 mg tablet TAKE 1 TABLET BY MOUTH EVERY DAY 90 tablet 1 09/18/2024 metoprolol succinate (TOPROL-XL) 25 mg 24 hr tablet TAKE 1/2 TABLET BY MOUTH EVERY DAY 45 tablet 3 09/18/2024 albuterol HFA (PROAIR HFA ; PROVENTIL HFA ; VENTOLIN HFA) 90 mcg/actuation inhaler Inhale 2 puffs every 4 (four) hours if needed for shortness of breath or wheezing. (Patient not taking: Reported on 09/14/2024) Not Taking Review of Systems Constitutional: Negative. HENT: Negative. Eyes: Negative. Respiratory: Negative. Cardiovascular: Negative. Gastrointestinal: Negative. Endocrine: Negative. Genitourinary: Negative. Musculoskeletal: Negative. Skin: Negative. Breast: negative. Allergic/Immunologic: Negative. Neurological: Negative. Hematological: Negative. Psychiatric/Behavioral: Negative. Last Recorded Vitals: Blood pressure (!) 146/71, pulse 61, temperature 36.8 ??C (98.2 ??F), temperature source Temporal, resp. rate 14, height 1.702 m (67 ), weight 89.8 kg (198 lb), SpO2 97%. General: No acute distress Chest: no accessory muscle use CVS: S1-S2, regular rhythm, no murmurs Abdomen: Nondistended, nontender Extremities: No edema Skin: No rashes or lesions Neuro: Alert and oriented x 3 Relevant Results: See labs Assessment/Plan Active Problems: No Active Problems: There are no active problems currently on the Problem List. Please update the Problem List and refresh. Proceed to OR for flexible and robotic bronchoscopy, biopsies, EBUS, fiducial marker placement documented in this encounter Procedure Notes * Osiel Mckeon RN - 09/19/2024 2:44 PM EST Discharge Note: [facility] reports feeling ready, comfortable and safe for discharge. Patient and family understand discharge plan, follow-up and instructions for post operative care and pain management. Assisted into clothing, ambulated with a steady gait to wheelchair. All belongings returned to [facility]. Patient discharged via wheelchair into waiting car with discharge instructions, and prescriptions electronically sent to pharmacy. Osiel Mckeon RN * Maru Saenz MD - 09/19/2024 11:35 AM EST Images from the original note were not included. FLEXIBLE/ ROBOTIC ASSISTED BRONCHOSCOPY W. FNA, TBBX, BRUSH, BAL (B), RADIAL EBUS (B), LINEAR EBUS TBNA W. FLUOROSCOPY (B), FIDUCIAL MARKER PLACEMENT (B) OPERATIVE NOTE Date: 09/19/2024 Location: [facility] OR Name: James Reyes, : 1945, Diagnosis Pre-op Diagnosis * Lung nodule [R91.1] Post-op Diagnosis * Lung nodule [R91.1] Procedures FLEXIBLE/ ROBOTIC ASSISTED BRONCHOSCOPY W. FNA, TBBX, [place] [address] - LA BRONCHOSCOPY RIGID/FLEXIBLE COMPUTER ASSISTED IMAGE GUIDED NAVIGATION RADIAL EBUS [address] - LA BRONCHOSCOPY RIGID/FLEXIBLE W/TRANSBRONCHIAL LUNG BIOPSY(S) SINGLE LOBE LINEAR EBUS TBNA W. FLUOROSCOPY 58318 - LA BRONCHOSCOPY RIGID/FLEXIBLE W/EBUS >=3 MEDIASTINAL/HILAR LYMPH NODES FIDUCIAL MARKER PLACEMENT 15478 - LA BRONCHOSCOPY INCL FLUROSCOPIC GUIDANCE W PLCMNT FIDUCIAL MARKER SGL/MULT Additional Procedures Indications: James Reyes is an 79 y.o. male who is having surgery for * No pre- op diagnosis entered *. Surgeon(s) & Expert Witness(s) * Maru Saenz MD - Primary Anesthesia: general ASA: III Estimated Blood Loss: Minimal Drains: * No LDAs found * Specimen: Specimens ID Source Type Tests Collected By Collected At Frozen? Priority Lab ID 1 Lung, Left Lower Lobe Fine Needle Aspirate NON-GYNECOLOGIC CYTOLOGY Maru Saenz MD 09/19/24 1137 Today Description: FNA LEFT LOWER LOBE Comment: IN CYTO 2 Lung, Left Lower Lobe Brushing NON-GYNECOLOGIC CYTOLOGY Maru Saenz MD 09/19/24 1138 Today Description: BRUSH LEFT LOWER LOBE Comment: IN CYTO 3 Lung, Left Lower Lobe Wash NON-GYNECOLOGIC CYTOLOGY Maru Saenz MD 09/19/24 1138 Today Description: WASH LEFT LOWER LOBE Comment: IN CYTO 4 Lung, Left Lower Lobe Tissue TISSUE EXAM Maru Saenz MD 09/19/24 1139 No Description: CRYO LEFT LOWER LOBE 5 Lymph Node Fine Needle Aspirate NON-GYNECOLOGIC CYTOLOGY Mrau Saenz MD 09/19/24 1246 Today Description: 11R Comment: IN CYTO 6 Lymph Node Fine Needle Aspirate NON-GYNECOLOGIC CYTOLOGY Maru Saenz MD 09/19/24 1255 Today Description: LEVEL 7 Comment: IN CYTO 7 Lymph Node Fine Needle Aspirate NON-GYNECOLOGIC CYTOLOGY Maru Saenz MD 09/19/24 1305 Today Description: 4L Comment: IN CYTO Procedure Details: See below Findings: Prior to the procedure, the patient's identity was verified by full name, date of and medicalrecord number. The patient's identity was verified on all pertinent medical records. Also prior to the procedure, a History and Physical was performed, and patient medications, allergies and sensitivities were reviewed. The patient's tolerance of previous anesthesia was reviewed. The risks and benefits of the procedure and the sedation options and risks were discussed with the patient. All questions were answered and informed consent was obtained. Time-Out: Prior to the start of the procedure, the patient's identification, proposed procedure, accurate signed consent, correctly labeled images and records, and need for prophylactic antibiotics were verified by the physician, the nurse, the anesthesiologist and the social science instructor in the procedure room. After obtaining informed consent, The procedure was accomplished without difficulty. The patient tolerated the procedure well. Patient preparation: Patient was placed under general anesthesia. A size 8.5 mm ET tube was placed for bronchoscopy. Patient given topical anesthesia. A thorough airway exam was performed after passage of the bronchoscope. The trachea was anatomically normal. The right sided airway was anatomically normal without endobronchial lesions. No secretions. The left sided airway was anatomically normal without endobronchial lesions. No secretions. Thereafter, the Ion robot was brought into the field and the process of registration was carried out. The guide catheter was used to navigate using the planned pathway into the left lower lobe where we were able to wedge peripherally at a distance of 0 mm from the target, we locked-in and removed the camera. We introduced the radial EBUS that showed a circumferential location relative to the lesion. We confirmed our location with fluoroscopy C-arm. We performed a [facility] Beam CT-CIOS 3D spin to confirm [id number]. We then removed the R-EBUS and introduced the biopsy tools starting with multiple peripheral needletransbronchial needle aspiration (TBNA). We continued with more biopsies in a cloud format. We used to 1.1 mm cryoprobe to perform multiple transbronchial biopsies (TBBX). Bronchoalveolar lavage was performed in the left lower lobe. 10 mL of fluid were instilled. 5ml returned. The return was cloudy. (75965) Brushing of the lesion was performed. The tissue was submitted for pathology, cytology. Fiducial marker x 1 was placed in the usual fashion at the lesion with fluoroscopy guidance. The bronchoscope was removed and the EBUS scope was inserted. A complete EBUS exam (61321/19243) was performed: - Stations 11R (7.5 mm), 7 (7.0 mm), 4L (6.3 mm) were enlarged - Stations 10R, 4R, 10L and 11L were also scanned but none met size criteria for biopsy Level 11R station was identified with the EBUS scope at the RBI/R hilum and 4 passes were made using a 21G Olympus TBNA needle. Level 7 station was identified with the EBUS scope at the medial LMSB/RMSB and 4 passes were made using a 21G Olympus TBNA needle. Level 4L station was identified with the EBUS scope at the lateral LMSB/L tracheobronchial angle and 4 passes were made using a 21G Olympus TBNA needle. Following completion of all diagnostic and therapeutic procedures, hemostasis was verified. The scope was removed and procedure concluded. IMPLANTS: Fiducial marker x 1 in LLL Drains: None Images: Complications: None; patient tolerated the procedure well. Disposition: PACU - hemodynamically stable. Condition: stable * Maru Saenz MD - 09/19/2024 11:35 AM EST 09/19/2024 Route: ET Tube size 8.5 mm Endoscope: 2.8 mm Bronchoscope Topical: 1% Lidocaine 25 ml Findings: Flexible and robotic bronchoscopy Left lower lobe FNA/cryobiopsy/wash/brush, fiducial marker placement x 1 Radial EBUS, CIOS, fluoroscopy Linear EBUS TBNA Complications: None; patient tolerated the procedure well. Disposition: PACU - hemodynamically stable. Condition: stable Attending Attestation: I performed the procedure. Maru Saenz MD documented in this encounter Plan of Treatment Upcoming Encounters Date Type Department Care Team (Late st Contact Info) Description 10/16/2024 10:30 AM EDT Office Visit Internal Medicine - [facility] [address] [place] [phone] Dwayne Adams MD [address] [place] [address] 05/16/2025 10:50 AM EDT Office Visit [facility] - [facility] [address] [facility] [address] [place] [address] Ena Mendosa MD [address] [place] [address] documented as of this encounter Procedures Procedure Name Priority Date/Time Associated Diagnosis Comments XR CHEST 1 VIEW STAT 09/19/2024 1:45 PM EST OXYGEN THERAPY, ADULT Routine 09/19/2024 1:27 PM EST TISSUE EXAM Routine 09/19/2024 11:39 AM EST Lung nodule NON-GYNECOLOGIC CYTOLOGY Routine 09/19/2024 11:37 AM EST Lung nodule LA BRONCHOSCOPY INCL FLUROSCOPIC GUIDANCE W PLCMNT FIDUCIAL MARKER SGL/MULT 09/19/2024 11:08 AM EST Lung nodule LA BRONCHOSCOPY RIGID/FLEXIBLE W/EBUS >=3 MEDIASTINAL/HILAR LYMPH NODES 09/19/2024 11:08 AM EST Lung nodule LA BRONCHOSCOPY RIGID/FLEXIBLE W/TRANSBRONCHIAL LUNG BIOPSY(S) SINGLE LOBE 09/19/2024 11:08 AM EST Lung nodule LA BRONCHOSCOPY RIGID/FLEXIBLE COMPUTER ASSISTED IMAGE GUIDED NAVIGATION 09/19/2024 11:08 AM EST Lung nodule documented in this encounter Results * XR Chest 1 View (09/19/2024 1:45 PM EST) Anatomical Region Laterality Modality Body Radiographic Argenis ging 09/19/2024 2:25 PM EST Impressions 09/19/2024 2:26 PM EST The lungs are hypoinflated resulting in obscuration of the cardiac silhouette and pulmonary vasculature. No focal consolidation, pleural effusion, or pneumothorax. Report reviewed and signed by : Dr. Gaurang Cortes on 09/19/2024 2:26 PM. Workstation Name - [id number] -------- FINAL REPORT -------- Dictated By: Gaurang Cortes Dictated Date: 09/19/2024 14:25 ET Assigned Physician: Gaurang Cortes Reviewed and Electronically Signed By: Gaurang Cortes Signed Date: 09/19/2024 14:26 ET Workstation ID: [id number] Transcribed By: Self Edit Transcribed Date: 09/19/2024 [...] Cortes on 09/19/2024 2:26 PM.Workstation Name - [id number] -------- FINAL REPORT -------- Dictated By: Gaurang Cortes Dictated Date: 09/19/2024 14:25 ET Assigned Physician: Gaurang Cortes Reviewed and Electronically Signed By: Gaurang Cortes Signed Date: 09/19/2024 14:26 ET Workstation ID: [id number] Transcribed By: Self Edit Transcribed Date: 09/19/2024 14:25 ET us Maru Saenz MD IMG XR PROCEDURES Final Re sult * Tissue exam (09/19/2024 11:39 AM EST) Final Diagnosis Lung, left lower lobe, cryo biopsy: Benign lung with mild chronic inflammation (see note and comment). No malignancy identified. Note: In the setting of semisolid lung mass, these findings may not be care support representative of the targeted lesion. Clinical and radiological correlation is recommended. 09/21/2024 9:27 AM EST [facility] Comment Please see concurrent cytology specimen ([id number]) for more information. Becker slides have been reviewed at the intradepartmental conference at [place] on 09/20/24. 09/21/2024 9:27 AM EST [facility] Gross Description A. Lung, Left Lower Lobe, CRYO LEFT LOWER LOBE: Received in formalin labeled parietal left lower lobe are multiple dark red fragments of tissue ranging in size from 0.1 to 0.3 cm. The specimen is filtered and submitted entirely 1 cassette labeled A1. JS 09/19/24 09/21/2024 9:27 AM EST [facility] Disclaimer The technical components of this case were performed at [address] # [id number] 09/21/2024 9:27 AM [facility] Tissue Structure of lower lobe of left lung / Unknown 09/19/2024 11:39 AM EST 09/19/2024 2:55 PM EST us Maru Saenz MD LAB PATHOLOGY ORDERABLES F inal Result [facility] [address] [place] [address], * Non-gynecologic cytology (09/19/2024 11:37 AM EST) [...] Benign bronchial cells. 09/21/2024 9:27 AM EST [facility] Comment Please see concurrent surgical specimen ([id number]) for more information. 09/21/2024 9:27 AM EST [facility] Specimen A Adequacy Satisfactory for evaluation 09/21/2024 9:27 AM EST [facility] Specimen B Adequacy Satisfactory for evaluation 09/21/2024 9:27 AM EST [facility] Specimen C Adequacy Satisfactory for evaluation 09/21/2024 9:27 AM EST [facility] Specimen D Adequacy Satisfactory for evaluation 09/21/2024 9:27 AM EST [facility] Specimen E Adequacy Satisfactory for evaluation [...] components of [place] [address] CLIA # [id number] 09/21/2024 9:27 AM [facility] [...] MD LAB CYTOLOGY ORDERABLES Fi nal Result [facility] [address] [place] [address], [place] [phone] documented in this encounter Visit Diagnoses Diagnosis Lung nodule Other diseases of lung, not elsewhere classified documented in this encounter Administered Medications Inactive Administered Medications - up to 3 most recent administrations Medication Order MAR Action Action Date Dose Rate Site diphenhydrAMINE (BENADRYL) injection 25 mg 25 mg, intravenous, Every 15 min PRN, itching, Starting on Tue09/19/24 at 1326, For 2 doses, Recovery (only) HYDROmorphone (DILAUDID) injection 0.5 mg 0.5 mg, intravenous, Every 15 min PRN, severe pain or when therapies for moderate pain were not effective, Starting on Tue09/19/24 at 1326, For 4 doses, Recovery (only) lactated Ringer's infusion 100 mL/hr, intravenous, Continuous, Starting on Tue09/19/24 at 1345, Recovery (only) meperidine (PF) (DEMEROL) 25 mg/mL injection 12.5 mg 12.5 mg, intravenous, Every 15 min PRN, rigors, shivering, Starting on Tue09/19/24 at 1326, For 4 doses, Recovery (only) ondansetron (PF) (ZOFRAN) injection 4 mg 4 mg, intravenous, Every 8 hours PRN, vomiting, nausea, Starting on Tue09/19/24 at 1326, Recovery (only), -ONLY give IV if patient is unable to take orally. -If inadequate response within 30 minutes, proceed to next-line agent or contact provider if no further options ordered. ondansetron ODT (ZOFRAN-ODT) disintegrating tablet 4 mg 4 mg, oral, Every 8 hours PRN, vomiting, nausea, Starting on Tue09/19/24 at 1326, Recovery (only), -Give IV if patient is unable to take orally. -If inadequate response within 30 minutes, proceed to next-line agent or contact provider if no further options ordered. For ODT tablets: -Do not remove from blister pack until just before administering. -Patient should allow tablet to dissolve on tongue. documented in this encounter Discontinued Medications Medication Sig Discontinue Reason Start Date End Da te B complex (Vitamins B Complex) tablet Take 1 tablet by mouth 1 (one) time each day. 09/14/2024 omega-3 fatty acids (Super [place]-3) 1,000 mg capsule Take 2 tablets by mouth 1 (one) time each day. 09/24/2022 09/14/2024 documented as of this encounter Historical Medications * This list may reflect changes made after this encounter. cyanocobalamin, vitamin B-12, (VITAMIN B-12 ORAL) Take 1 tablet by mouth 1 (one) time each day. added in this encounter Active and Recently Administered Medications Times are shown in EST. Continuous Medication Order 09/17/2024 09/18/2024 09/19/2024 lactated Ringer's infusion 100 mL/hr, intravenous, Continuous, Starting on Tue09/19/24 at 1345, Recovery (only) 1345 (Canceled Entry - Provider: Automatic Discharge Provider - Comment: Automatically canceled at discontinue of medication order) PRN Medication Order 09/17/2024 09/18/2024 09/19/2024 diphenhydrAMINE (BENADRYL) injection 25 mg 25 mg, intravenous, Every 15 min PRN, itching, Starting on Tue09/19/24 at 1326, For 2 doses, Recovery (only) HYDROmorphone (DILAUDID) injection 0.5 mg 0.5 mg, intravenous, Every 15 min PRN, severe pain or when therapies for moderate pain were not effective, Starting on Tue09/19/24 at 1326, For 4 doses, Recovery (only) lidocaine (XYLOCAINE) 1 % injection (CANCELED) As needed, Starting on Tue09/19/24 at 1316, Intraprocedure 1316 (Given - Provid er: Maru Saenz MD) meperidine (PF) (DEMEROL) 25 mg/mL injection 12.5 mg 12.5 mg, intravenous, Every 15 min PRN, rigors, shivering, Starting on Tue09/19/24 at 1326, For 4 doses, Recovery (only) ondansetron (PF) (ZOFRAN) injection 4 mg(Linked Group 1) 4 mg, intravenous, Every 8 hours PRN, vomiting, nausea, Starting on Tue09/19/24 at 1326, Recovery (only), -ONLY give IV if patient is unable to take orally. -If inadequate response within 30 minutes, proceed to next-line agent or contact provider if no further options ordered. ondansetron ODT (ZOFRAN-ODT) disintegrating tablet 4 mg(Linked Group 1) 4 mg, oral, Every 8 hours PRN, vomiting, nausea, Starting on Tue09/19/24 at 1326, Recovery (only), -Give IV if patient is unable to take orally. -If inadequate response within 30 minutes, proceed to next-line agent or contact provider if no further options ordered. For ODT tablets: -Do not remove from blister pack until just before administering. -Patient should allow tablet to dissolve on tongue. Linked Groups Order Group 1: ondansetron ODT (ZOFRAN-ODT) disintegrating tablet 4 mgJump to med 4 mg, oral, Every 8 hours PRN, vomiting, nausea, Starting on Tue09/19/24 at 1326, Recovery (only), -Give IV if patient is unable to take orally. -If inadequate response within 30 minutes, proceed to next-line agent or contact provider if no further options ordered. For ODT tablets: -Do not remove from blister pack until just before administering. -Patient should allow tablet to dissolve on tongue. Or ondansetron (PF) (ZOFRAN) injection 4 mgJump to med 4 mg, intravenous, Every 8 hours PRN, vomiting, nausea, Starting on Tue09/19/24 at 1326, Recovery (only), -ONLY give IV if patient is unable to take orally. -If inadequate response within 30 minutes, proceed to next-line agent or contact provider if no further options ordered. documented in this encounter Orders Medications Ordered That Bib ht Not Have Been Administered Count Last Ordered Date First Ordered Date diphenhydrAMINE (BENADRYL) injection 25 mg 1 09/19/2024 HYDROmorphone (DILAUDID) injection 0.5 mg 1 09/19/2024 lactated Ringer's infusion 1 09/19/2024 lidocaine (XYLOCAINE) 1 % injection 1 09/19 meperidine (PF) (DEMEROL) 25 mg/mL injection 12.5 mg 1 09/19/2024 ondansetron (PF) (ZOFRAN) injection 4 mg 1 09/19/2024 ondansetron ODT (ZOFRAN-ODT) disintegrating tablet 4 mg 1 09/19/2024 Diet Count Last Ordered Date First Orde red Date ADULT DISCHARGE DIET 1 09/19/2024 Nursing Count Last Ordered Date First Orde red Date ACTIVITY 1 09/19/2024 Respiratory Care Count Last Ordered Date First Ordered Date OXYGEN THERAPY, ADULT 1 09/19/2024 Discharge Count Last Ordered Date First Orde red Date DISCHARGE PATIENT 1 09/19/2024 documented in this encounter Additional Health Concerns Assessment Noted Time PHQ-9 Depression Total Score: 0 09/14/19 25 10:04 AM EST documented as of this encounter Care Teams Strategy Director Relationship Specialty Start Date End Date Dwayne Adams MD [address] [place] [id number] PCP - General Internal Medicine 02/19/20 documented as of this encounter
--- OUTSIDE RECORDS SUMMARY | 2024-09-28 11:48 | XMS_ITS | Encounter Summary ---
Author Organization [facility] Address [address] [place] [address] Care Team Providers Care Tool Crib Attendant Name Role Phone Dwayne Adams MD Primary Care Provider [phone] Reason for Visit * Auth/Cert (Routine) Specialty Diagnoses / Procedures Referred By Rebecca t Referred To Contact Diagnoses Lung nodule Procedures AR BRONCHOSCOPY RIGID/FLEXIBLE COMPUTER ASSISTED IMAGE GUIDED NAVIGATION AR BRONCHOSCOPY RIGID/FLEXIBLE W/TRANSBRONCHIAL LUNG BIOPSY(S) SINGLE LOBE AR BRONCHOSCOPY RIGID/FLEXIBLE W/EBUS >=3 MEDIASTINAL/HILAR LYMPH NODES AR BRONCHOSCOPY INCL FLUROSCOPIC GUIDANCE W PLCMNT FIDUCIAL MARKER SGL/MULT FLEXIBLE/ ROBOTIC ASSISTED BRONCHOSCOPY W. FNA, TBBX, BRUSH, BAL RADIAL EBUS LINEAR EBUS TBNA W. FLUOROSCOPY FIDUCIAL MARKER PLACEMENT Maru Saenz MD [address] [place] [address] Phone: tel: fax: [facility] OR [address] [place] [phone] Phone: tel: Referral ID Status Reason Start Date Expiration Date Visits Re quested Visits Authorized [id number] 1 1 Encounter Details Date Type Department Care Team (Late st Contact Info) Description 09/19/2024 10:00 AM EST - 09/19/2024 11:45 AM EST Surgery [facility] OR [address] [place] [phone] Maru Saenz MD [address] [place] [address] FLEXIBLE/ ROBOTIC ASSISTED BRONCHOSCOPY W. FNA, TBBX, BRUSH, BAL [[id number] (CPT??)] Surgery Details Date/Time Status Location OR Service Patient Class Case Cl ass Case Type Trauma Case? 09/19/2024 10:00 AM Posted [facility] OR OR [address] [address] Outpatient Surgery F - Elective Panel 1 Procedure LRB Anes Op Region Wound Class Comments FLEXIBLE/ ROBOTIC ASSISTED BRONCHOSCOPY W. FNA, TBBX, BRUSH, BAL Bilateral Bronchus Class II/ Clean Contaminated LENGTH OF PROCEDURE 75 MINUTES RADIAL EBUS Bilateral Bronchus Class II/ Dejon an Contaminated LINEAR EBUS TBNA W. FLUOROSCOPY Bilateral Bronchus Class II/ Clean Contaminated FIDUCIAL MARKER PLACEMENT Bilateral Bronchus Class II/ Clean Contaminated Surgeon Surgeon Role Service Panel Maru Seanz MD Primary Pulmonology 1 documented in this encounter Social History Tobacco Use Types Packs/Day Years [...] for your loved ones. For example, child care education coordinator or elderly care for an older [...] EST Travel History Travel Start Travel End [place] 08/14/2024 09/14/2024 documented as of this encounter Last Filed Vital Signs Vital Sign Reading Time Taken Comments Blood Pressure 146/71 09/19/2024 9:36 AM EST Pulse 61 09/19/2024 9:36 AM EST Temperature 36.8 ??C (98.2 ??F) 09/19/2024 9:36 AM ES T Respiratory Rate 14 09/19/2024 9:36 AM EST Oxygen Saturation 97% 09/19/2024 9:36 AM EST Inhaled Oxygen Concentration - - Weight [...] sent through Care Everywhere. * Bronchoscopy: Post-op (Arabic) documented in this encounter Medications at Time [...] (10/10/2023), Obesity (09/24/2010), PAD (peripheral artery disease) ([facility]) (10/13/2021), Polyneuropathy (10/02/2015), and Pulmonary nodules (09/20/2023). [...] - 09/19/2024 2:44 PM EST Discharge Note: Edu Jeremicz reports feeling ready, comfortable and safe for discharge. Patient and family understand discharge plan, follow-up and instructions for post operative care and pain management. Assisted into clothing, ambulated with a steady gait to wheelchair. All belongings returned to Edu Reyes. Patient discharged via wheelchair into waiting car [...] PLACEMENT (B) OPERATIVE NOTE Date: 09/19/2024 Location: [facility] OR Name: James Reyes, : 1945, Diagnosis Pre-op Diagnosis * Lung nodule [R91.1] Post-op Diagnosis * Lung nodule [R91.1] Procedures FLEXIBLE/ ROBOTIC ASSISTED BRONCHOSCOPY W. FNA, TBBX, [place] [address] - AR BRONCHOSCOPY RIGID/FLEXIBLE COMPUTER ASSISTED IMAGE GUIDED NAVIGATION RADIAL EBUS 79928 - AR BRONCHOSCOPY RIGID/FLEXIBLE W/TRANSBRONCHIAL LUNG BIOPSY(S) SINGLE LOBE LINEAR EBUS TBNA W. FLUOROSCOPY 44065 - AR BRONCHOSCOPY RIGID/FLEXIBLE W/EBUS >=3 MEDIASTINAL/HILAR LYMPH NODES FIDUCIAL MARKER PLACEMENT 55710 - AR BRONCHOSCOPY INCL FLUROSCOPIC GUIDANCE W PLCMNT FIDUCIAL MARKER SGL/MULT Additional Procedures Indications: James Reyes is an 79 y.o. male who is having surgery for * No pre- op diagnosis entered *. Surgeon(s) & Lime Kiln Tender(s) * Maru Saenz MD - Primary Anesthesia: [...] Aspirate NON-GYNECOLOGIC CYTOLOGY Maru Saenz MD 09/19/24 1246 Today Description: 11R [...] physician, the nurse, the anesthesiologist and the regulatory affairs assistant in the procedure room. After obtaining informed [...] [facility]one Beam CT-CIOS 3D spin to confirm [id number]. We then removed the R-EBUS and introduced the biopsy tools starting with multiple peripheral needletransbronchial needle aspiration (TBNA). We continued with more biopsies in a cloud format. We used to 1.1 mm cryoprobe to perform multiple transbronchial biopsies (TBBX). Bronchoalveolar lavage was performed in the left lower lobe. 10 mL of fluid were instilled. 5ml returned. The return was cloudy. (18065) Brushing of the lesion was performed. The tissue was submitted for pathology, cytology. Fiducial marker x 1 was placed in the usual fashion at the lesion with fluoroscopy guidance. The bronchoscope was removed and the EBUS scope was inserted. A complete EBUS exam ([id number]/[id number]) was performed: - Stations 11R (7.5 mm), [...] AM EDT Office Visit Internal Medicine - [address] [phone] Dwayne Adams MD [address] [place] [phone] 05/16/2025 10:50 AM EDT Office Visit [facility] [address] [facility] [address] [place] [phone] Ena Mendosa MD [address] [place] [address] documented as of this encounter Procedures Procedure Name Priority Date/Time Associated Diagnosis Comments XR CHEST 1 VIEW STAT 09/19/2024 1:45 PM EST OXYGEN THERAPY, ADULT Routine 09/19/2024 1:27 PM EST TISSUE EXAM Routine 09/19/2024 11:39 AM EST Lung nodule NON-GYNECOLOGIC CYTOLOGY Routine 09/19/2024 11:37 AM EST Lung nodule AR BRONCHOSCOPY INCL FLUROSCOPIC GUIDANCE W PLCMNT FIDUCIAL MARKER SGL/MULT 09/19/2024 11:08 AM EST Lung nodule AR BRONCHOSCOPY RIGID/FLEXIBLE W/EBUS >=3 MEDIASTINAL/HILAR LYMPH NODES 09/19/2024 11:08 AM EST Lung nodule AR BRONCHOSCOPY RIGID/FLEXIBLE W/TRANSBRONCHIAL LUNG BIOPSY(S) SINGLE LOBE 09/19/2024 11:08 AM EST Lung nodule AR BRONCHOSCOPY RIGID/FLEXIBLE COMPUTER ASSISTED IMAGE GUIDED NAVIGATION [...] on 09/19/2024 2:26 PM. Workstation Name - [id number] -------- FINAL REPORT -------- Dictated By: Gaurang Cortes Dictated Date: 09/19/2024 14:25 ET Assigned Physician: Gaurang Cortes Reviewed and Electronically Signed By: Gaurang Cortes Signed Date: 09/19/2024 14:26 ET Workstation ID: [id number] Transcribed By: Self Edit Transcribed Date: 09/19/2024 [...] Cortes on 09/19/2024 2:26 PM.Workstation Name - [id number] -------- FINAL REPORT -------- Dictated By: Gaurang Cortes Dictated Date: 09/19/2024 14:25 ET Assigned Physician: Gaurang Cortes Reviewed and Electronically Signed By: Gaurang Cortes Signed Date: 09/19/2024 14:26 ET Workstation ID: [id number] Transcribed By: Self Edit Transcribed Date: 09/19/2024 14:25 ET us Maru Saenz MD IMG XR PROCEDURES Final Re sult * Tissue exam (09/19/2024 11:39 AM EST) Final Diagnosis Lung, left lower lobe, cryo biopsy: Benign lung with mild chronic inflammation (see note and comment). No malignancy identified. Note: In the setting of semisolid lung mass, these findings may not be primary care sales representative of the targeted lesion. Clinical and radiological correlation is recommended. 09/21/2024 9:27 AM EST [facility] Comment Please see concurrent cytology specimen ([id number]) for more information. Becker slides have been reviewed at the intradepartmental conference at [place], [place] on 09/20/24. 09/21/2024 9:27 AM EST [facility] Gross Description A. Lung, Left Lower Lobe, CRYO LEFT LOWER LOBE: Received in formalin labeled parietal left lower lobe are multiple dark red fragments of tissue ranging in size from 0.1 to 0.3 cm. The specimen is filtered and submitted entirely 1 cassette labeled A1. JS 09/19/24 09/21/2024 9:27 AM EST [facility] Disclaimer The technical components of this case were performed at [address] [address] CLIA # [id number] 09/21/2024 9:27 AM EST [facility] Tissue Structure of lower lobe of left lung / Unknown 09/19/2024 11:39 AM EST 09/19/2024 2:55 PM EST us Maru Saenz MD LAB PATHOLOGY ORDERABLES F inal Result [facility] [address] [place] [address], * Non-gynecologic cytology (09/19/2024 11:37 AM EST) [...] Benign bronchial cells. 09/21/2024 9:27 AM EST [facility] Comment Please see concurrent surgical specimen ([id number]) for more information. 09/21/2024 9:[address] [facility] Specimen A Adequacy Satisfactory for evaluation 09/21/2024 9:[address] [facility] Specimen B Adequacy Satisfactory for evaluation 09/21/2024 9:[address] [facility] Specimen C Adequacy Satisfactory for evaluation 09/21/2024 9:[address] [facility] Specimen D Adequacy Satisfactory for evaluation 09/21/2024 9:[address] [facility] Specimen E Adequacy Satisfactory for evaluation 09/21/2024 9:[address] [facility] Specimen F Adequacy Satisfactory for evaluation 09/21/2024 9:[address] [facility] Clinical Information IN CYTO 09/21/2024 9:[address] [facility] Gross Description A. Lung, Left [...] ThinPrep and Cell Block. 09/21/2024 9:[address] [facility] Disclaimer The technical components [place] [address] CLIA # [id number] 09/21/2024 9:[address] [facility] Fine Needle Aspirate Structure of lower [...] EST 09/19/2024 3:21 PM EST Comment:IN CYTO us Maru Saenz MD LAB CYTOLOGY ORDERABLES nal Result [facility] [address] [place] [address], [place] [phone] documented in this encounter Visit Diagnoses Diagnosis Lung nodule Other diseases of lung, not elsewhere classified Lung nodule Other diseases of lung, not [...] Starting on Tue09/19/24 at 1345, Recovery (only) lidocaine (XYLOCAINE) 1 % injection As needed, Starting on Tue09/19/24 at 1316, Intraprocedure Given 09/19/2024 1:16 PM EST 25 mL meperidine (PF) (DEMEROL) 25 mg/mL injection 12.5 [...] each day. 09/14/2024 omega-3 fatty acids (Super [place]-3) 1,000 mg capsule Take 2 tablets by [...] 1 09/19/2024 lactated Ringer's infusion 1 09/19/2024 meperidine (PF) (DEMEROL) 25 mg/mL injection 12.5 [...] documented as of this encounter Care Teams Tool Crib Attendant Relationship Specialty Start Date End Date Dwayne Adams MD [address] [place] [address] PCP - General Internal Medicine 02/19/20 documented as of this encounter
--- OUTSIDE RECORDS SUMMARY | 2024-09-28 11:48 | XMS_ITS | Encounter Summary ---
Author Organization [facility] Address [address] [place] [address] Care Team Providers Care Maori Liaison Adviser Name Role Phone Dwayne Adams MD Primary Care Provider [phone] Reason for Visit * Auth/Cert (Routine) Specialty Diagnoses / Procedures Referred By Rebecca t Referred To Contact Diagnoses Lung nodule Procedures AK BRONCHOSCOPY RIGID/FLEXIBLE COMPUTER ASSISTED IMAGE GUIDED NAVIGATION AK BRONCHOSCOPY RIGID/FLEXIBLE W/TRANSBRONCHIAL LUNG BIOPSY(S) SINGLE LOBE AK BRONCHOSCOPY RIGID/FLEXIBLE W/EBUS >=3 MEDIASTINAL/HILAR LYMPH NODES AK BRONCHOSCOPY INCL FLUROSCOPIC GUIDANCE W PLCMNT FIDUCIAL MARKER SGL/MULT FLEXIBLE/ ROBOTIC ASSISTED BRONCHOSCOPY W. FNA, TBBX, BRUSH, BAL RADIAL EBUS LINEAR EBUS TBNA W. FLUOROSCOPY FIDUCIAL MARKER PLACEMENT Maru Saenz MD [address] [place] [address] Phone: tel: fax: [address] [phone] Phone: tel: Referral ID Status Reason Start Date Expiration Date Visits Re quested Visits Authorized [id number] 1 1 Encounter Details Date Type Department Care Team (Late st Contact Info) Description 09/19/2024 11:26 AM EST Anesthesia Event [address] [phone] Bryant Reynolds DO [address] [place] [address] Fransisco Pedroza MD [address] [place] [address] Anesthesia Record Procedure Summary Procedure Name Responsible Anesthesiologist Anesthesia Start Time Anesthesia Stop Time FLEXIBLE/ ROBOTIC ASSISTED BRONCHOSCOPY W. FNA, TBBX, BRUSH, BAL (Bilateral: Bronchus) Bryant ReynoldsDO 09/19/24 1126 09/19/24 1330 Events Date Time Event Comment 09/19/2024 1103 1123 In Room 1126 An Start 1126 An Start Data The patient wa s reevaluated immediately before moderate or deep sedation use and before anesthesia induction. 1129 An Induction 1130 An Intubation 1131 Anesthesia Ready 1135 Proc Start 1316 Proc Fin 1323 An Extubation 1323 an stop data 1330 Out of Room 1330 Handoff to RN I completed my handoff to the receiving nurse during which we: 1. Identified the patient 2. Identified the responsible provider 3. Reviewed the pertinent medical history 4. Discussed the surgical course 5. Reviewed intra-op anesthesia management and issues during anesthesia 6. Set expectations for post-procedure period 7. Allowed opportunity for questions and acknowledgement of understanding. 1330 An Stop Meds Name Total midazolam 1 mg/mL 2 mg fentaNYL (SUBLIMAZE) injection 100 mcg propofol (DIPRIVAN) injection 10 mg/mL 1 50 mg rocuronium 70 mg ondansetron 2 mg/mL 4 mg phenylephrine (KD-SYNEPHRINE) 100 mcg/m L syringe 10 mL 80 mcg dexamethasone (DECADRON) injection 4 mg/ mL 4 mg sugammadex (BRIDION) injection 100 mg/mL 200 mg lactated Ringer's infusion 500 mL * Agents No agents on file. * Blood No blood administrations on file. Lines, Drains, and Airways Type Details Placement Removal Peripheral IV Placement Date: 12/09; Placement Time: 1100; Catheter Size: 20 G; Orientation: Anterior, Left; Location: Hand; Site Prep: Chlorhexidine; Inserted by: Katt Pritchard; Insertion Attempts: 1; Patient Tolerance: Tolerated well; Removal Date: 09/19/24; Removal Time: 1503 09/19/24 1100 by Yg Pritchard RN 09/19/24 1503 by Osiel Mckeon RN ETT Placement Date: 12/09; Placement Time: 1130; Mask Ventilation: 1; Technique: Direct laryngoscopy; Type: ETT; Single Lumen Tube Size: 8.5 mm; Cuffed: Yes; Grade View: Grade I; Insertion Attempts: 1; Placement Verification: Auscultation, ETCO2; Removal Date: 09/19/24; Removal Time: 1323 09/19/24 1130 by Fransisco Pedroza MD 09/19/24 1323 by Bryant Reynolds, documented in this encounter Social History Tobacco [...] care for your loved ones. For example, early childhood worker or elderly care for an older adult? [...] EST Travel History Travel Start Travel End [place] 08/14/2024 09/14/2024 documented as of this encounter Progress Notes * Bryant Reynolds DO - 09/19/2024 2:00 PM EST Patient: James Reyes Procedure Summary Date: 09/19/24 Room / Location: [facility] OR 02 / [facility] OR Anesthesia Start: 1126 Anesthesia Stop: 1330 Procedures: FLEXIBLE/ ROBOTIC ASSISTED BRONCHOSCOPY W. FNA, TBBX, BRUSH, BAL (Bilateral: Bronchus) RADIAL EBUS (Bilateral: Bronchus) LINEAR EBUS TBNA W. FLUOROSCOPY (Bilateral: Bronchus) FIDUCIAL MARKER PLACEMENT (Bilateral: Bronchus) Diagnosis: Lung nodule Surgeons: Maru Saenz MD Responsible Provider: Bryant Reynolds DO Anesthesia Type: general ASA Status: 3 Anesthesia Plan: general Last Vitals: Vitals Value Taken Time BP 109/81 09/19/24 1445 Temp 36.7 ??C (98 ??F) 09/19/24 1330 Pulse 65 09/19/24 1445 Resp 14 09/19/24 1430 SpO2 99 % 09/19/24 1445 No data recorded Anesthesia Post Evaluation Patient location during evaluation: PACU Patient participation: complete - patient participated Level of consciousness: awake and alert Pain management: satisfactory to patient Airway patency: patent Anesthetic complications: no Cardiovascular status: acceptable and blood pressure returned to baseline Respiratory status: face mask Hydration status: euvolemic Nausea: No Vomiting: No No notable events documented. * Bryant Reynolds DO - 09/19/2024 12:09 PM ESTAssociated Order(s): Intubation General Information and Staff Patient location during procedure: OR Anesthesiologist: Fransisco Pedroza MD Performed: anesthesiologist Performed by: Bryant Reynolds DO Authorized by: Bryant Reynolds DO Intubation Airway not difficult Urgency: elective Final [...] 09/19/2024 11:30 AMStop Time: 09/19/2024 11:30 AM * Fransisco Pedroza MD - 09/19/2024 8:35 AM EST Relevant Problems Cardio (+) Atrial tachycardia (CMS/HCC) (+) Dyspnea on exertion (+) Essential hypertension (+) PAD (peripheral artery disease) (CMS/HCC) Pulmonary (+) Dyspnea on exertion GI (+) Hiatal hernia Clinical information reviewed: Tobacco Allergies Meds Med Hx Surg Hx Fam Hx Soc Hx Anesthesia Plan ASA 3 Anesthesia Plan: general Anesthesia Risks Discussed dental injury, nausea, sore throat, pain, corneal abrasion, allergic reaction and serious complications Plan Factors Smoking cessation education has not been provided Induction method: intravenous Postoperative administration of opioids is intended. Anesthetic plan and risks discussed with patient. Anesthesia Evaluation Patient summary reviewed Airway Mallampati: II Thyromental distance: > 3 finger breadths Neck ROM: full Dental - normal exam Pulmonary - normal exam (+) asthma, shortness of breath Cardiovascular - normal exam (+) hypertension Rhythm: regular Rate: normal Neuro/Psych - neuro/psych exam normal GI/Hepatic/Renal (+) hiatal hernia Endo/Other Abdominal - normal exam PONV RISK SCORE: 1 Vitals: 09/14/24 1300 Weight: 89.8 kg (198 lb) Height: 1.702 m (67 ) SpO2 Readings from Last 1 Encounters: 07/20/24 99% WBC Date Value Ref Range Status 09/18/2024 7.1 4.8 - 10.8 K/mcL Final RBC Date Value Ref Range Status 09/18/2024 4.80 4.50 - 5.50 M/mcL Final Hemoglobin Date Value Ref Range Status 09/18/2024 15.7 13.5 - 17.5 g/dL Final Hematocrit Date Value Ref Range Status 09/18/2024 44.6 42.0 - 54.0 % Final Platelets Date Value Ref Range Status 09/18/2024 209 130 - 400 K/mcL Final MCV Date Value Ref Range Status 09/18/2024 93.3 79.0 - 98.0 FL Final Allergies Allergen Reactions Ezetimibe Muscular Issues Oxycodone-Acetaminophen bad headache Tramadol Hcl Other Dizzy, lightheaded STOP BANG: STOP-Bang Total Score: (Patient-Rptd) 4 (09/18/2024 5:15 PM) NPO Status: No data recorded documented in this encounter Plan of Treatment Upcoming Encounters Date Type Department Care Team (Late st Contact Info) Description 10/16/2024 10:30 AM EDT Office Visit Internal Medicine - [facility] [address] [facility] [address] Dwayne Adams MD [address] [place] [address] 05/16/2025 10:50 AM EDT Office Visit [facility] [address] [facility] [address] [place] [phone] Ena Mendosa MD [address] [place] [address] documented as of this encounter Procedures Procedure Name Priority Date/Time Associated Diagnosis Comments TH AN ENDOTRACHEAL(NO CHARGE) Routine 09/19/2024 12:09 PM EST documented in this encounter Results * TH AN ENDOTRACHEAL(NO CHARGE) (09/19/2024 12:09 PM EST) Bryant Mayes DO - 09/19/2024 12:09 PM EST Bryant [...] AMStop Time: 09/19/2024 11:30 AM us Bryant H Ham DO ANESTHESIA ORDERABLES Edited Res ult - Final documented in this encounter Visit Diagnoses Not on filedocumented in this encounter Administered Medications Inactive Administered Medications - up to 3 most recent administrations Medication Order MAR Action Action Date Dose Rate Site dexAMETHasone (DECADRON) injection intravenous, As needed, Starting on Tue09/19/24 at 1129, Anesthesia Intraprocedure Given 09/19/2024 11:29 AM EST 4 mg fentaNYL (PF) (SUBLIMAZE) injection intravenous, As needed, Starting on Tue09/19/24 at 1129, Anesthesia Intraprocedure Given 09/19/2024 11:29 AM EST 100 mcg lactated Ringer's infusion intravenous, Continuous PRN, Starting on Tue09/19/24 at 1127, Anesthesia Intraprocedure New Bag 09/19/2024 11:27 AM EST midazolam (VERSED) injection intravenous, As needed, Starting on Tue09/19/24 at 1129, Anesthesia Intraprocedure Given 09/19/2024 11:29 AM EST 2 mg ondansetron (PF) (ZOFRAN) injection intravenous, As needed, Starting on Tue09/19/24 at 1217, Anesthesia Intraprocedure Given 09/19/2024 12:17 PM EST 4 mg phenylephrine (KD-SYNEPHRINE) injection intravenous, As needed, Starting on Tue09/19/24 at 1225, Anesthesia Intraprocedure Given 09/19/2024 12:25 PM EST 80 mcg propofoL (DIPRIVAN) injection intravenous, As needed, Starting on Tue09/19/24 at 1129, Anesthesia Intraprocedure Given 09/19/2024 11:29 AM EST 150 mg rocuronium (ZEMURON) injection intravenous, As needed, Starting on Tue09/19/24 at 1129, Anesthesia Intraprocedure Given 09/19/2024 12:48 PM EST 10 mg Given 09/19/2024 12:16 PM EST 10 mg Given 09/19/2024 11:29 AM EST 50 mg sugammadex (BRIDION) 100 mg/mL injection intravenous, As needed, Starting on Tue09/19/24 at 1316, Anesthesia Intraprocedure Given 09/19/2024 1:16 PM EST 20 0 mg documented in this encounter Additional Health Concerns Assessment Noted Time PHQ-9 Depression Total Score: 0 09/14/19 10:04 AM EST documented as of this encounter Care Teams Maori Liaison Adviser Relationship Specialty Start Date End Date Dwayne Adams MD [address] [place] [phone] PCP - General Internal Medicine 02/19/20 documented as of this encounter
== END 2024-09-28 11:37 | disposition home or self-care (01) ==
LOC: HO.HSMS 10:26
PROVIDERS: PCP Internal Medicine; Visit Provider Nurse Practitioner Family
DX: G62.9 Polyneuropathy, unspecified (principal); R76.8 Other specified abnormal immunological findings in serum; M25.50 Pain in unspecified joint; G47.9 Sleep disorder, unspecified
CPT/HCPCS: 99214

== ENCOUNTER → 2024-09-28 10:25 | Outpatient (BNVA) | payer OTHER, SELFPAY | PROVIDERS: PCP Internal Medicine; Visit Provider Nurse Practitioner Family | DX: G62.9 Polyneuropathy, unspecified (principal); R76.8 Other specified abnormal immunological findings in serum; M25.50 Pain in unspecified joint; G47.9 Sleep disorder, unspecified; R20.2 Paresthesia of skin | CPT/HCPCS: 99212 ==

== ENCOUNTER 2025-04-05 10:24 | Outpatient (AMB) | payer OTHER, SELFPAY ==
[2025-04-05 10:33] VITALS: BP 110/62; PULSE 76; O2SAT 95; BMI 31.3
--- NOTE | 2025-04-05 10:33 | MHC.OFFVIS ---
Vital Signs 04/05/25 10:33 Height 5 ft 7 in Weight 200 lb BMI 31.3 BP 110/62 Blood Pressure Location Rt brachial Position Sitting Pulse 76 Pulse Source Pulse Oximeter Pulse Oximetry (%) 95 Oxygen Delivery Method Room Air Intake Visit Reasons: 6 mnts f/u Intake Note: Patient presents follow up polyneuropathy/sleep. 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 Accompanied by: Self / Same As Patient Allergies ezetimibe (From Zetia) Allergy (Severe, Verified 04/05/25 10:34) Joint Pain tramadol (From Ultram) Allergy (Severe, Verified 04/05/25 10:34) Dizziness acetaminophen (From Percocet) Allergy (Unknown, Verified 04/05/25 10:34) Unknown oxycodone (From Percocet) Allergy (Unknown, Verified 04/05/25 10:34) Unknown Medication List - Last Reconciled 04/05/25 by TJ Rios aspirin 81 mg PO DAILY atorvastatin 20 mg PO DAILY coenzyme Q10 (Ultra CoQ10) 75 mg PO DAILY gabapentin 600 mg PO BID hydrochlorothiazide 25 mg PO DAILY lisinopril 10 mg PO DAILY metoprolol succinate ER 12.5 mg PO DAILY pyridoxine (vitamin B6) 200 mg (2 x 100 mg) PO DAILY 60 days HPI Comments Details: 80-yr-old year-old male presents for follwo-up of BLE neuopathy. Patient states he was recently diagnosed himw/ MGUS by [place] [facility]. He missed the rheumatology consult as he had to go out of state to see his brother who was dying from a rapid onset leukemia. He reports that his neuropathy seems a bit worse, as he is noticing an increase in his BLE painful numbness and tingling. He feels overall a bit weaker, not walking or riding his bike as far as he used to. For instance, he used to walk 4 miles but now needs to rest after 2 miles. Can have upper thigh cramps while walking. He is followed by vascular, Dr Fan, for PAD- and is scheduled for a BLE US next week. Occasionally may have pain along his waistline. He states this may be triggered by eating more salt or sugar. He tries to drink water regularly. Gabapentin helps, takes 600mg about 3 hours before bedtime, as it takes a few hours to start working. He states if he takes 900mg it causes morning drowsiness. He also uses [place] APR (arthritis pain relief, which is very helpful Per the APR website: APR is an all-natural blend of eucalyptus, peppermint, tea tree, rocío, wintergreen, camphor, aloe vera, vitamin E oil (VEO), catalyst altered water (CAW water), grapeseed, rapeseed, flaxseed, olive oil, lavender, vitamin A, and almond oil. 09/28/2024, HPI: The patient is a 79-year-old male presenting with neuropathy. Symptoms began 10 years prior with nerve overactivity at night and insomnia. He takes gabapentin for symptom management. The patient reports chronic fatigue and morning joint pain and swelling. patient also note that he has been recently evaluated for multiple Pulmonary nodules, which on biopsy were negative for malignancy however showed indications of inflammation.-. Patient asks if there is a potential link with inflammation. 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 Vitamin B12 levels high, Patient states he has been taking vitamin B12 supplements for some time. Vitamin B6 levels low <2- discussed that this could be contributing to neuropathy risk. rheumatoid factor elevated- in 70s. he has not previously seen rheumatology. 03/16/2024, initial HPI: 79-yr-old male presents for neurological evaluation of neuropathy. He would also like to discuss his sleep. Pt reports that he was diagnosed w/ BLE peripheral neuropathy in ~[address] Butt. His initial s/s were BLE feet tingling, burning pains, redness. Gradually overtime, he has developed numbness from his toes through mid-calf. He has episodes of increased tingling and burning pain at night which prevents him from sleeping, especially if he forgets to take the Gabapentin. Now when walking, he can feel pressure on his feet, but does not fully feel the ground. If he walks on a cold tile floor, he can feel the coldness. He does cycle- his feet do not bother him when he cycles. He has h/o lumbar lamine[place] [address] Mancia, however was told that BLE neuropathy was not r/t his lumbar spine. The lumbar repair was helpful, but his lumbar back can be flared up with certain activities or excess lifting. He takes Gabapentin 600-900mg q evening, as it takes about 3 hrs to take effect- as it makes him wake up in a daze and effects his cognition, and overall makes him more tired. In the past, he tried Amitriptyline 10mg qhs- states he had even worse side effects. He is complaint w/ ASA, statin. BP is normotensive. No h/o diabetes. Last HgAiC 5.7%. Last B12- > 2000 and folate- 15.9, CHO-126, TRG 160 H, HDL 44, LDL 50, TC-HDLC ratio- 2.9, Follows w/ Ivonne Akbar MD (Vascular Surgery) This is exacerbated by eating sugar and salt, or anything that causes inflammation. He is noticing that he is waking up earlier, so that while he used to get 8 hours of sleep, he now only gets about 6 hrs. He does not wake up w/ pain/burning in his feet. He goes to bed by 10:30pm, and falls asleep up to an hour later, and then wakes up around 5-5:30 or 6am. He used to take 1/2 naps- but now can only rest or take a 10-15 minute snooze after lunch- latest at 2pm. Takes 1-2 cups of coffee in the am. No soda, alcohol, marijuana, smoking. He endorses occasional mild feet swelling, feet still become red, feet become cold, can have leg cramps while walking and also at rest/sleep, legs can feel tired- but can walk > 2 miles w/ some breaks, slower overall. Some neck stiffness/tightness- such as when looking over his shoulder when on his bike, but no raditaiting pain. He denies restlessness, ulcers, snoring. He does ride an electric bicycle- ~10 miles at a time on a bike trail. In the past, he used to do long distance cycling. [facility] Medical History (Updated 04/05/25 @ 11:26 by TJ Rios) Urolithiasis Hyperlipidemia Obesity Essential hypertension Lumbar radiculitis Polyneuropathy Atrial tachycardia PAD (peripheral artery disease) Dyspnea Surgical History (Updated 04/05/25 @ 10:44 by Mandi Baez CMA) History of bronchoscopy Hx of colonoscopy H/O hemorrhoidectomy Family History Mother Alzheimer dementia Father Myocardial infarct Brother Alcoholism Social History Household Members: Spouse Housing: House Alcohol intake: never Patient Tobacco Use Status: Never used Tobacco Physical Exam Vital Signs: Last Vital Signs Pulse 76 04/05/25 10:33 BP 110/62 04/05/25 10:33 Pulse Ox 95 04/05/25 10:33 Oxygen Delivery Method Room Air 04/05/25 10:33 BMI result Body Mass Index 31.3 Const General: cooperative and no acute distress Orientation/consciousness: patient oriented x3 Resp Effort & Inspection: normal respiratory effort and able to speak in complete sentences Neuro Other: [place] General: patient oriented x3 and CN's II-XI intact bilaterally Gait exam (Neuro): Normal gait present Motor exam (neuro): 5/5 motor strength present throughout Psych Appearance: grossly normal Mental Status: mental status grossly normal Speech and movement: Normal speech and movement present Affect: normal affect Attitude: cooperative Assessment & Plan Assessment & Plan (1) Polyneuropathy: Comment: Apr 2024 BLE EMG/NCS: sensory axonal neuropathy Code(s): G62.9 - Polyneuropathy, unspecified Category: Medical (2) Elevated rheumatoid factor: Code(s): R76.8 - Other specified abnormal immunological findings in serum Category: Medical (3) Joint pain: Code(s): M25.50 - Pain in unspecified joint Category: Medical Qualifiers: Joint pain location: unspecified Qualified Code(s): M25.50 - Pain in unspecified joint (4) Sleep difficulties: Code(s): G47.9 - Sleep disorder, unspecified Category: Medical Plan Continue gabapentin 600 mg twice a day to manage neuropathy. Continue Vitamin B6 200 mg daily for now Continue reduced frequency of Vitamin B12 May continue OTC ARB topical cream to BLE. Pt has not done follow-up B6 lab yet Recheck Vit B6, B12, and labs- lab slip given to pt Patient states he will reschedule video specialist consult appt today- for joint pain and elevated rheumatoid factor. Follow-up with vascualr and hematology work-up as scheduled. - [facility] as [facility]-connected condition. Will follow-up upon review of above and patient to follow-up in clinic in 6 months or sooner prn. Orders: Orders Vitamin B6 Today D64.9 - Anemia, unspecified, E53.1 - Pyridoxine deficiency, G62.9 - Polyneuropathy, unspecified, R76.8 - Other specified abnormal immunological findings in serum, R79.89 - Other specified abnormal findings of blood chemistry Complete Blood Count Auto Diff Today E53.1 - Pyridoxine deficiency, G62.9 - Polyneuropathy, unspecified, R76.8 - Other specified abnormal immunological findings in serum, R79.89 - Other specified abnormal findings of blood chemistry Vitamin B12 Today E53.1 - Pyridoxine deficiency, G62.9 - Polyneuropathy, unspecified, R76.8 - Other specified abnormal immunological findings in serum, R79.89 - Other specified abnormal findings of blood chemistry Comprehensive Welch. Panel Fast Today E53.1 - Pyridoxine deficiency, G62.9 - Polyneuropathy, unspecified, R76.8 - Other specified abnormal immunological findings in serum, R79.89 - Other specified abnormal findings of blood chemistry Folate Today E53.1 - Pyridoxine deficiency, G62.9 - Polyneuropathy, unspecified, R76.8 - Other specified abnormal immunological findings in serum, R79.89 - Other specified abnormal findings of blood chemistry Rheumatoid Factor Today E53.1 - Pyridoxine deficiency, G62.9 - Polyneuropathy, unspecified, R76.8 - Other specified abnormal immunological findings in serum, R79.89 - Other specified abnormal findings of blood chemistry Erythrocyte Sedimentation Rate Today E53.1 - Pyridoxine deficiency, G62.9 - Polyneuropathy, unspecified, R76.8 - Other specified abnormal immunological findings in serum, R79.89 - Other specified abnormal findings of blood chemistry C Reactive Protein Today E53.1 - Pyridoxine deficiency, G62.9 - Polyneuropathy, unspecified, R76.8 - Other specified abnormal immunological findings in serum, R79.89 - Other specified abnormal findings of blood chemistry Coding Level of Care Code Est Pt Level 4 (36754) Diagnoses Polyneuropathy G62.9 Elevated rheumatoid factor R76.8 Arthralgia, unspecified joint M25.50 Joint pain location: unspecified Sleep difficulties G47.9
--- OUTSIDE RECORDS SUMMARY | 2025-04-05 10:59 | XMS_ITS | Encounter Summary ---
Author Organization [facility] Address [address] [place] [address] Care Team Providers Care Equipment Operator/Laborer/Supervisor Name Role Phone Nikole Morales MD Primary Care Provider [phone] Reason for Visit * Reason Onset Date Comments Referral 04/02/2025 Vascular Referra l Encounter Details Date Type Department Care Team (Late st Contact Info) Description 04/02/2025 Telephone Internal Medicine - [address] [place], [place] [phone] Nikole Morales MD [address] Social History Tobacco Use Types Packs/Day Years Used Date Smoking Tobacco: Never Smokeless Tobacco: Never Alcohol Use Standard Drinks/Week Comments Not Currently 0 (1 standard drink = 0.6 oz pur e alcohol) Housing Instability Answer Date Recorde d Are you worried that in the next 2 months you may not have stable housing? No 10/16/2024 Food Access & Nutrition Answer Date Rec orded Do you have access to a vari ety of food including fruits and vegetables? Yes 10/16/2024 Access to Healthcare Answer Date Record ed Within the last 3 months, ho w many times did you visit the emergency department for your medical care? 0 09/16/2024 Health Literacy Answer Date Recorded How often do you need to hav e someone help you when you read instructions, pamphlets, or other written material from your doctor or pharmacy? Rarely 10/16/2024 Caregiver: How often do you need to have someone help you when you read instructions, pamphlets, or other written material from your doctor or pharmacy? Not on file 10/16/2024 Financial Risk Answer Date Recorded How hard is it for you to pa y for the very basics like food, housing, medical care, and air conditioning / heating? Somewhat hard 10/16/2024 Transportation Answer Date Recorded Has the lack of transportati on kept you from meetings, work, or from getting things needed for daily living? No Has the lack of transportati on kept you from medical appointments or from getting medications? No 10/16/2024 Social Isolation Answer Date Recorded How often do you feel lonely or isolated from th ose around you? Rarely 10/16/2024 Food Risk Answer Date Recorded Within the past 12 months we worried whether our food would run out before we got money to buy more. Never true 10/16/2024 Within the past 12 months th e food we bought just didn't last and we didn't have money to get more. Never true 10/16/2024 Dependent Care Answer Date Recorded Do you need help finding or paying for care for your loved ones. For example, maternal child nurse or elderly care for an older adult? No 10/16/2024 Education Answer Date Recorded Do you think completing more education or training, like finishing a GED, going to college, or learning a trade, would be helpful for you? Patient declined 10/16/2024 Employment and Income Answer Date Recor ded During the last four weeks, have you been actively looking for work? Patient declined 10/16/2024 Living Situation Answer Date Recorded What is your living situation? 0 10/16/2024 Interpersonal Safety Answer Date Record ed Physical Abuse 09/19/2024 Verbal Abuse 09/19/2024 Sex and Gender Information Value Date Recorded Sex Assigned at Male 06/19/2024 10:24 AM EST Legal Sex Male 8:32 PM EST Gender Identity Male 06/19/2024 10:24 AM EST Sexual Orientation Straight 09/11/2024 10 :13 AM EST documented as of this encounter Progress Notes * April Bentley MA - 04/04/2025 10:40 AM EDT Patient seen yearly for LOWER EXTREMITY ARTERY STUDY, COMPL WITH SEVEN, DX: PAD (peripheral artery disease) (HCC), Claudication (HCC). And f/u with provider regarding imaging. * Lesley Juarez NP - 04/03/2025 5:37 PM EDT What I referring him for? * Karena Scott - 04/02/2025 10:02 AM EDT What insurance does the patient have today? Payor: [facility] Referrals cannot be processed if the insurance is not accurate. If the insurance listed above is NO BILLING INFORMATION FOUND FOR THIS ENCOUNTER then the patients correct insurance must be obtainedand registered in [place] or their referral can not be processed. Name of person calling to request this referral? James Reyes Referred To Provider (Include first and last name): Ivonne Akbar NPI (if known): [id number] Order/Specialty requested Vascular Chief Complaint (Note: This is not a body part or a procedure): recheck of arterial us with seven Has the patient seen provider for this problem/Dx before? yes Referred To Provider Address: [address] [place] [address] Referred To Provider Referred To Provider Does patient have an appointment scheduled?: no If yes, what is the date of the appointment?: n/a Is this a retro request? no Number of visits requested: 12 Is this appointment related to: MVA or worker compensation? no documented in this encounter Plan of Treatment Upcoming Encounters Date Type Department Care Team (Late st Contact Info) Description 04/08/2025 10:00 AM EDT Office Visit Internal Medicine - [address] [phone] Lesley Mckeon NP [address] [place] [id number] 04/12/2025 1:00 PM EDT Appointment [facility] Ultrasound [address] [place] [phone] 05/09/2025 10:00 AM EDT Office Visit [facility] Hematology Oncology [address] [place] [phone] Abbi Brito PA [address] [place] [address] 05/16/2025 10:50 AM EDT Office Visit [facility] - [address] [place] [phone] Ena Mendosa MD [address] [place] [address] [place] [phone] documented as of this encounter Visit Diagnoses Diagnosis PAD (peripheral artery disease) (CMS/HCC V24)- Primary Unspecified peripheral vascular disease documented in this encounter Additional Health Concerns Assessment Noted Time PHQ-9 Depression Total Score: 0 10/17/19 11:39 AM EDT documented as of this encounter Care Teams Equipment Operator/Laborer/Supervisor Relationship Specialty Start Date End Date Nikole Morales MD [address] [place] [phone] PCP - General Internal Medicine 02/07/25 documented as of this encounter
--- OUTSIDE RECORDS SUMMARY | 2025-04-05 10:59 | XMS_ITS ---
Author Name [facility] Organization Unknown Results Test Name/Text Value Interpretation Date Range Source Citation Ref Lab Test The technical components of this case were performed at [address] [address] CLIA # [id number] Normal 09/21/2024 [facility] Service Cmnt-Imp [facility] ([id number]) for more information. Becker slides have been reviewed at the intradepartmental conference at [place], [place] on 09/20/24. Normal 09/21/2024 [facility] Clinical Information IN CYTO Normal 09/21/2024 [facility] Citation Ref Lab Test The technical components of this case were performed at [address] [address] CLIA # [id number] Normal 09/21/2024 [facility] History of Medication Use Medication Directions Dispensed Refills Start Date End Date Status diphenhydrAMINE (BENADRYL) injection 25 mg 25 mg, intravenous, Every 15 min PRN, itching, Starting on Tue09/19/24 at 1326, For 2 doses, Recovery (only) 5 active HYDROmorphone (DILAUDID) injection 0.5 mg 0.5 mg, intravenous, Every 15 min PRN, severe pain or when therapies for moderate pain were not effective, Starting on Tue09/19/24 at 1326, For 4 doses, Recovery (only) 5 active lactated Ringer's infusion 100 mL/hr, intravenous, Continuous, Starting on Tue09/19/24 at 1345, Recovery (only) 5 active meperidine (PF) (DEMEROL) 25 mg/mL injection 12.5 mg 12.5 mg, intravenous, Every 15 min PRN, rigors, shivering, Starting on Tue09/19/24 at 1326, For 4 doses, Recovery (only) 5 active ondansetron ODT (ZOFRAN-ODT) disintegrating tablet 4 mg [Order 1 Start] Name: ondansetron ODT (ZOFRAN-ODT) disintegrating tablet 4 mg Signed Summary: 4 mg, oral, Every 8 hours PRN, vomiting, nausea, Starting on Tue09/19/24 at 1326, Recovery (only), -Give IV if patient is unable to take orally. -If inadequate response within 30 minutes, proceed to next-debbie 5 active hydroCHLOROthiazide (HYDRODIURIL) 25 mg tablet TAKE 1 TABLET BY MOUTH DAILY 5 active lisinopriL (PRINIVIL,ZESTRIL) 10 mg tablet TAKE 1 TABLET BY MOUTH EVERY DAY 5 active metoprolol succinate (TOPROL-XL) 25 mg 24 hr tablet TAKE 1/2 TABLET BY MOUTH EVERY DAY 4 active atorvastatin (LIPITOR) 20 mg tablet Take 1 tablet (20 mg total) by mouth 1 (one) time each day. 3 active omega-3 fatty acids (Super Rector-3) 1,000 mg capsule Take 2 tablets by mouth 1 (one) time each day. 3 active aspirin 81 mg EC tablet Take 1 tablet (8 1 mg total) by mouth 1 (one) time each day. 2 active albuterol HFA (PROAIR HFA ; PROVENTIL HFA ; VENTOLIN HFA) 90 mcg/actuation inhaler Inhale 2 puffs every 4 (four) hours if needed for shortness of breath or wheezing. 1 active diclofenac (Voltaren) 1 % topical gel Apply 1 g topically 1 (one) time each day if needed (for painful areas on feet/toes). 8 active docusate sodium (COLACE) 100 mg capsule Take 1 capsule (100 mg total) by mouth 2 (two) times a day. 4 active B complex (Vitamins B Complex) tablet Take 1 tablet by mouth 1 (one) time each day. active cyanocobalamin, vitamin B-12, (VITAMIN B-12 ORAL) Take 1 tablet by mouth 1 (one) time each day. active gabapentin (NEURONTIN) 300 mg capsule Take 1-4 capsules (300-1,200 mg total) by mouth at bedtime. active Allergies Allergen Reaction Severity Comment Documented Date Source Statu s EZETIMIBE MUSCULAR ISSUES 06/26/2018 [facility] active TRAMADOL HCL OTHER Dizzy, lightheaded 06/12/2007 [facility] active OXYCODONE-ACET AMINOPHEN bad headache 08/19/2005 [facility] active Problems Problem Status Onset Date Problem Type Date of Resolution Source Pain active EncounterDiagnosisAct [facility] PAD (peripheral artery disease) active 2021-10-13 ProblemAct [facility] Urolithiasis active 2006-03-22 ProblemAct [facility] Dyspnea on exertion active 2023-01-10 ProblemAct [facility] Pulmonary nodule active 2024-07-09 ProblemAct C [facility] History of basal cell carcinoma active 2018-10-11 ProblemAct [facility] Atrial tachycardia active 2021-09-16 ProblemAct [facility] Hiatal hernia active 2024-07-09 ProblemAct [facility] Essential hypertension active 2015-04-29 ProblemAct [facility] Hyperlipidemia active 2007-06-26 ProblemAct [facility] Polyneuropathy active 2015-10-02 ProblemAct [facility] Lumbar radiculitis active 2015-04-29 ProblemAct [facility] Obesity (BMI 30-39.9) active 2010-09-24 ProblemAct [facility] Immunizations Vaccine Date Source Lot Number Status Influenza trivalent, 0.5mL ( Fluzone High-dose) 65yo and older 05/26/2023 [facility] [id number] comple yudi Influenza trivalent, 0.5mL ( Fluzone High-dose) 65yo and older 03/29/2022 [facility] [id number] comple yudi [facility] SARS-CoV-2 COVID-19, mRNA, LNP-S, preservative free 02/10/2022 [facility] SARS-CoV-2 COVID-19, mRNA, LNP-S, preservative free 05/12/2021 [facility] [id number] completed Influenza trivalent, 0.5mL ( Fluzone High-dose) 65yo and older 04/29/2021 [facility] [id number] comple yudi [facility] SARS-CoV-2 COVID-19, mRNA, LNP-S, preservative free 11/05/2020 [facility] [id number] completed [facility] SARS-CoV-2 COVID-19, mRNA, LNP-S, preservative free 10/14/2020 [facility] [id number] completed Influenza trivalent, 0.5mL ( Fluzone High-dose) 65yo and older 04/23/2020 [facility] [id number] comple yudi Influenza trivalent, 0.5mL ( Fluzone High-dose) 65yo and older 04/06/2019 [facility] [id number] comple yudi Influenza trivalent, 0.5mL ( Fluzone High-dose) 65yo and older 04/13/2018 [facility] [id number] comple yudi Influenza Quadravalent, MDCK , 0.5ml, with preservative (Flucelvax) 6mo and older 05/12/2017 [facility] [id number] completed Td Tetanus diptheria (Tdvax) 7yo and older 02/16/2017 [facility] [id number] completed Influenza trivalent, with pr eservative (Fluzone; Afluria) 6mo and older 08/16/2016 [facility] [id number] completed Pneumococcal conjugate 13 va lent (Prevnar 13, PCV13) 2mo and older 03/11/2016 [facility] [id number] complet ed Influenza trivalent, with pr eservative (Fluzone; Afluria) 6mo and older 04/29/2015 [facility] [id number] completed Influenza trivalent, with pr eservative (Fluzone; Afluria) 6mo and older 05/09/2014 [facility] [id number] completed Influenza trivalent, with pr eservative (Fluzone; Afluria) 6mo and older 04/23/2013 [facility] [id number] completed Zoster Live 01/22/2013 [facility] [id number] completed Pneumococcal polysaccharide 23 valent (Pneumovax 23) 2yo and older 12/19/2012 [facility] [id number] com pleted Influenza trivalent, with pr eservative (Fluzone; Afluria) 6mo and older 04/24/2012 [facility] [id number] completed Tdap Tetanus diptheria acell ular pertussis (Boostrix; Adacel) 7yo and older 07/30/2011 [facility] [id number] completed Influenza trivalent, with pr eservative (Fluzone; Afluria) 6mo and older 03/30/2011 [facility] [id number] completed Influenza trivalent, with pr eservative (Fluzone; Afluria) 6mo and older 03/26/2010 [facility] [id number] completed Influenza trivalent, with pr eservative (Fluzone; Afluria) 6mo and older 07/14/2009 [facility] [id number] completed Influenza trivalent, with pr eservative (Fluzone; Afluria) 6mo and older 04/23/2008 [facility] [id number] completed Influenza trivalent, with pr eservative (Fluzone; Afluria) 6mo and older 05/19/2007 [facility] [id number] completed Pneumococcal polysaccharide 23 valent (Pneumovax 23) 2yo and older 06/17/1993 [facility] com pleted Encounters Encounter Type Encounter Reason Primary Diagnosis Location Date Ambulatory Pain, unspecified Pain, unspecified [facility] 09/19/2024 Ambulatory Solitary pulmonary nodule Solitary pulmonary nodule [facility] 09/19/2024 Care Team Organization Name Specialty Phone Email Start Date End Da te [facility]
--- OUTSIDE RECORDS SUMMARY | 2025-04-05 10:59 | XMS_ITS | Clinical Summary ---
Author Organization [facility] Address [address] [place] [address] Care Team Providers Care Er Rn Name Role Phone Dwayne Adams MD Primary Care Provider [phone] Allergies Active Allergy Reactions Criticality Noted Date [...] 68 11/16/2023 11:04 AM EDT Temperature 36.6 C (97.8 F) 11/16/2023 11:04 AM EDT Respiratory Rate - - Oxygen Saturation 99% [...] - 1-dose 75+ series) 2022 COVID-19 Vaccine (5 - 2024- season) 2025 02/10/2022, 05/12/2021, 11/05/2020, Additional history exists Influenza Vaccine (#1) 2025 , 03/29/2022, 04/29/2021, Additional history exists Pneumococcal Vaccine Completed 03/11/2016, 12/19/2012, 06/17/1993 Hepatitis B Vaccines Aged Out No long er eligible based on patient's age to complete this topic RSV Ped < 20 months Aged Out No longe r eligible based on patient's age to complete this topic Care Teams Er Rn Relationship Specialty Start Date End Date Dwayne Adams MD [address] [place] [address] PCP - General Internal Medicine 11/16/23
--- OUTSIDE RECORDS SUMMARY | 2025-04-05 10:59 | XMS_ITS | Encounter Summary ---
Author Organization [facility] Address [address] [place] [address] Care Team Providers Care Jewelry Designer Name Role Phone Nikole Morales MD Primary Care Provider [phone] Reason for Referral * Consultation (Routine) - Authorized Specialty Diagnoses / Procedures Referred By Contac t Referred To Contact Cardiology Diagnoses Essential hypertension Atrial tachycardia (CMS/HCC V24) Lesley Mckeon NP [address] [place] [phone] Phone: tel: fax: Ena Mendosa MD [address] [place] [phone] Phone: tel: fax: Referral ID Status Reason Start Date Expiration Date Visits Requested Visits Authorized [id number] Authorized Specialty Services Required 04/03/2025 04/03/2026 6 6 Reason for Visit * Reason Onset Date Comments Referral 04/02/2025 Cardiology Refer ral Encounter Details Date Type Department Care Team (Late st Contact Info) Description 04/02/2025 [facility] [address] [place] [address] Nikole Morales MD [address] [place] [address] Social History Tobacco Use Types Packs/Day Years [...] as of this encounter Progress Notes * Karena Scott - 04/02/2025 10:21 AM EDT What insurance does the patient have today? Payor: @[email or web address]@/@[facility] Referrals cannot be processed if the insurance is not accurate. If the insurance listed above is NO BILLING INFORMATION FOUND FOR THIS ENCOUNTER then the patients correct insurance must be obtainedand registered in [facility] or their referral can not be processed. Name of person calling to request this referral? self Referred To Provider (Include first and last name): Ena Mendosa NPI (if known): [id number] Order/Specialty requested Cardiology Chief Complaint (Note: This is not a body part or a procedure): htn, atrial tachycardia Has the patient seen provider for this problem/Dx before? yes Referred To Provider Address: [facility] Referred To Provider Referred To Provider Does patient have an appointment scheduled?: YES If yes, what is the date of the appointment?: 05/16/2025 Is this a retro request? NO Number of visits requested: 6 Is this appointment related to: MVA or worker compensation? NO documented in this encounter Plan of Treatment Upcoming Encounters Date Type Department Care Team (Late st Contact Info) Description 04/08/2025 10:00 AM EDT Office Visit [facility] - [facility] [address] [place] [phone] Lesley Mckeon, [employer]ER [address] [place] [address] 04/12/2025 1:00 PM EDT Appointment [facility] Ultrasound [address] [place] [phone] 05/09/2025 10:00 AM EDT Office Visit [facility] Hematology Oncology [address] [place] [phone] Abbi Brito PA [address] [place] [address] 05/16/2025 10:50 AM EDT Office Visit [facility] - [address] [place] [phone] Ena Mendosa MD [address] [place] [address] [place] [phone] Scheduled Referrals Name Type Priority Associated Diagnoses Order Schedule Ambulatory referral to Cardiology Outpatient Referral Routine Essential hypertension Atrial tachycardia (CMS/HCC V24) 1 Occurrences starting 04/03/2025 until 04/02/2026 documented as of this encounter Visit Diagnoses Diagnosis Atrial tachycardia (CMS/HCC V24)- Primary Other specified cardiac dysrhythmias Essential hypertension Unspecified essential hypertension documented in this encounter Additional Health Concerns Assessment Noted Time PHQ-9 Depression Total Score: 0 10/17/19 11:39 AM EDT documented as of this encounter Care Teams Jewelry Designer Relationship Specialty Start Date End Date Nikole Morales MD [address] [place] [phone] PCP - General Internal Medicine 02/07/25 documented as of this encounter
--- OUTSIDE RECORDS SUMMARY | 2025-04-05 10:59 | XMS_ITS | Clinical Summary ---
Author Organization [facility] Address [address] [place] [address] Phone Care Team Providers Care Housecleaner Name Role Phone Nikole Morales MD Primary Care Provider [phone] Allergies Active Allergy Reactions Criticality Noted Date Comments Ezetimibe Muscular Issues 06/26/2018 Oxycodone-Acetaminophen 08/19/2005 bad headache Tramadol Hcl Other 06/12/2007 Dizzy, lightheaded Medications albuterol HFA (PROAIR HFA ; PROVENTIL HFA ; VENTOLIN HFA) 90 mcg/actuation inhaler Inhale 2 puffs by mouth every 4 (four) hours if needed for [...] DAY 45 tablet 3 05/24/20 24 Active cyanocobalamin, vitamin B-12, (VITAMIN B-12 ORAL) Take 1 tablet by mouth 3 (three) times a week. Active pantoprazole (Protonix) 40 mg EC tabletIndicatio ns:Esophageal hernia,Gastroes ophageal reflux disease without esophagitis Take 1 tablet (40 mg total) by mouth 1 (one) time each day before breakfast. Do not crush, chew, or split. 30 each 09/26/19 25 026 Active pyridoxine (B-6) 100 mg tablet Take 2 tablets (200 mg total) by mouth 1 (one) time each day. Active ketorolac (ACULAR) 0.5 % ophthalmic solution INSTILL 1 DROP IN THE RIGHT EYE TWO TIMES A DAY 12/12/19 25 Active hydroCHLOROthia zide (HYDRODIURIL) 25 mg tablet TAKE 1 TABLET BY MOUTH DAILY 90 tablet 1 01/03/20 25 Active lisinopriL (PRINIVIL,ZESTR IL) 10 mg tablet TAKE 1 TABLET BY MOUTH EVERY DAY 90 tablet 1 01/03/20 25 Active atorvastatin (LIPITOR) 20 mg tablet TAKE 1 TABLET BY MOUTH AT BEDTIME 90 tablet 1 04/02/20 25 Active atorvastatin (LIPITOR) 20 mg tablet Take 1 tablet (20 mg total) by mouth at bedtime. 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 His creatinine is normal and he is not anemic. Orders: Ambulatory referral to Hematology / Oncology; Future Prediabetes 10/16/2024 Assessment & Plan (10/16/2024 12:00 PM EDT): His A1c was 5.8. Advised him to follow a strict low-carb, low sugar diet. Encouraged weight loss. Pulmonary nodule 07/09/2024 Assessment & Plan (10/16/2024 12:00 PM EDT): Currently being monitored by interventional pulmonology. Repeat CT chest December 2024. Assessment & Plan (07/09/2024 1:04 PM EST): [...] general and how their size, shape, and globe changer time affect our level of suspicion [...] as well as focusing on noncardiac etiologies. Assessment & Plan (10/16/2024 12:00 PM EDT): As per patient stable. He already followed up with cardiology and has had extensive workup. I offered him to see a media reporter but he declined. He states he is going to start exercising and improve his conditioning. PAD (peripheral artery disease) ([facility] V24) Overview (09/12/2023): Last Assessment & Plan: Patient [...] commend continued efforts at walking. Atrial tachycardia ([facility] V24) 09/16/2021 Overview (09/12/2023): Last Assessment & Plan: [...] (09/12/2023): BCC 10/03 forehead (infiltrative) Polyneuropathy 10/02/2015 Assessment & Plan (10/16/2024 12:00 PM EDT): Followed up with neurology for his polyneuropathy. For now, he will continue gabapentin 600 mg twice a day as recommended by neurology. Also continue vitamin B6 supplements daily for 2 months and vitamin B12 3 times a week. Essential hypertension 04/29/2015 Overview (09/12/2023): Last Assessment & Plan: The patient's blood pressure appears well controlled on current drug therapies. Recommend weight loss efforts walking for exercise low-sodium diet. Assessment & Plan (10/16/2024 12:00 PM EDT): Follow low-sodium diet. Continue current regimen of hydrochlorothiazide, lisinopril, metoprolol. Lumbar radiculitis 04/29/2015 Obesity (BMI 30-39.9) 09/24/2010 Hyperlipidemia 06/26/2007 Assessment & Plan (10/16/2024 12:00 PM EDT): Follow low-cholesterol diet. Continue atorvastatin. Orders: Lipid panel with reflex to direct LDL; Future Urolithiasis 03/22/2006 Encounters Date Type Department Care Team Description 04/02/2025 Telephone [facility] [address] [place] [phone] Nikole Morales MD 04/02/2025 Telephone Internal Medicine - [address] [phone] Nikole Morales MD 03/14/2025 Telephone Internal Medicine - [address] [phone] Nikole Morales MD 03/06/2025 Telephone Vascular Surgery - [facility] [address] [place] [address] Ivonne Akbar MD 02/01/2025 Telephone Internal Medicine - [address] [phone] Dwayne Adams MD from Last 3 Months Immunizations Name Administration [...] hx of PAD (peripheral artery disea se) ([facility] V24) 10/13/2021 DX:PAD (peripheral artery di sease) ([facility]) Pulmonary nodules 09/20/2023 DX:Pulmonary n odules Mild intermittent asthma, uncomplicated 10/10/2023 DX:Mild intermittent asthma, uncomplicated Family History Medical History Relation Name Comments Alcohol abuse Brother at 77 No Known Problems Daughter Heart attack Father in his 80s Hypertension Father Other: ppm Father in his 90s Alzheimer's disease Mother lived ti 86 Colon cancer Mother's side aunt Cancer Sister x No Known Problems Son x Relation Name Status Comments Brother x4 Daughter Father Mother Mother's side Sister x x3 1deceased Son x x2 Social History Tobacco Use Types Packs/Day Years [...] care for your loved ones. For example, director of child welfare services or elderly care for an older adult? [...] Orientation Straight 09/11/2024 10 :13 AM EST Obstetrics History Last Filed Vital Signs Vital Sign Reading Time Taken Comments Blood Pressure 145/67 01/01/2025 1:28 PM EDT Pulse 67 01/01/2025 1:28 PM EDT Temperature 36.8 C (98.2 F) 01/01/2025 1:28 PM EDT Respiratory Rate 14 09/19/2024 2:30 PM EST Oxygen Saturation 97% 01/01/2025 1:28 PM EDT Inhaled Oxygen Concentration - - Weight 91.4 kg (201 lb 6.4 oz) 01/01/2025 1:28 P M EDT Height 170.2 cm (5' 7 ) 01/01/2025 1:28 PM EDT Body Mass Index 31.54 01/01/2025 1:28 PM EDT Plan of Treatment Upcoming Encounters Date Type Department Care Team (Late st Contact Info) Description 04/08/2025 10:00 AM EDT Office Visit Internal Medicine - [facility] [address] [place] [address] Lesley Mckeon, [employer] TE[employer]ER [address] [place] [address] 04/12/2025 1:00 PM EDT Appointment [facility] Ultrasound [address] [place] [phone] 05/09/2025 10:00 AM EDT Office Visit [facility] Hematology Oncology [address] [place] [phone] Abbi Brito PA [address] [place] [address] 05/16/2025 10:50 AM EDT Office Visit [facility] - [address] [facility] [address] [place] [phone] Ena Mendosa MD [address] [place] [address] [address] [place] [phone] Health Maintenance Due Date Last Done Comments Zoster Vaccines (1 of 2) 03/19/2013 01/22/2013 RSV Immunization Adult Patients (1 - 1-dose 75+ series) 2022 Cholesterol Screening (Lipid Panel) 06/26/2022 COVID-19 Vaccine ( season) 2025 02/10/2022, 05/12/2021, 11/05/2020, Additional history exists Influenza Vaccine (#1) 2025 , 05/26/2023, 03/29/2022, Additional history exists Hypertension/CHF/CAD Annual BMP Blood Test 09/18/2025 09/18/2024, 09/14/2024, 05/07/2024 Falls Risk Assessment 09/19/2025 09/19/2024 Social Influencers of Health Screening 10/16/2025 10/16/2024 DTaP,Tdap,and Td Vaccines (3 - Td or Tdap) 02/16/2027 02/16/2017, 07/30/2011 Hepatitis C Screening Completed 03/26/2014 Pneumococcal Vaccine: 50+ Years Completed 03/11/2016, 12/19/2012, 06/17/1993 Depression Screening Completed 10/16/2024 HIB Vaccines Aged Out No longer eligi [...] age to complete this topic Meningococcal B Vaccine Aged Out No l onger eligible based on patient's age to complete this topic RSV Immunization Patients Under 20 months Aged Out No longer eligible based on patient's age to complete this topic Varicella Vaccines Aged Out No longer eligible based on patient's age to complete this topic Medical Devices Implanted Type Area Records Tech Device Identifier Shelf Expiration Date Model / Serial / Lot Marker Cobra Superlock - Sn/A - [id number] Implanted:Qt y: 1 on 09/19/2024 by Maru Saenz MD at [facility] Implants Left: Lung [employer] [id number] 04/16/2028 [id number] / N/A / [id number] Procedures Procedure Name Priority Date/Time Associated Diagnosis Comments COMPREHENSIVE METABOLIC PANEL Routine 09/18/2024 10:47 AM EST Peripheral nerve disorder Hypoesthesia Paresthesia HEPATITIS C SCREENING Routine 03/26/2014 from Last 3 Months or Most Recently Relevant to Health Maintenance Results * (ABNORMAL) Comprehensive metabolic panel (09/18/2024 10:47 AM EST) Sodium 140 133 - 145 mmol/L LAB CHEMISTRY METHOD 09/18/2024 3:15 PM EST [facility] Potassium 3.7 3.5 - 5.5 mmol/L LAB CHEMISTRY METHOD 09/18/2024 3:15 PM [facility] Chloride 102 96 - 110 mmol/L LAB CHEMISTRY METHOD 09/18/2024 3:15 PM [facility] CO2 26 21 - 32 mmol/L LAB CHEMISTRY METHOD 09/18/2024 3:15 PM [facility] Anion Gap 12(H) 3 - 11 LAB CHEMISTRY METHOD 09/18/2024 3:15 PM [facility] Glucose 144(H) 70 - 100 mg/dL LAB CHEMISTRY METHOD 09/18/2024 3:15 PM [facility] BUN 17 5 - 25 mg/dL LAB CHEMISTRY METHOD 09/18/2024 3:15 PM [facility] Creatinine 0.94 0.70 - 1.30 mg/dL LAB CHEMISTRY METHOD 09/18/2024 3:15 PM [facility] eGFR 83 >=60 mL/min/1. 73m2 LAB CHEMISTRY METHOD 09/18/2024 3:15 PM [facility] Comment:Calculation based on the Chronic Kidney Disease Epidemiology Collaboration (CKD-EPI) equation refit without adjustment for race. BUN/Creatinine Ratio 18.1 LAB CHEMISTRY METHOD 09/18/2024 3:15 PM [facility] Calcium 9.0 8.5 - 10.5 mg/dL LAB CHEMISTRY METHOD 09/18/2024 3:15 PM [facility] AST (SGOT) 18 10 - 42 unit/L LAB CHEMISTRY METHOD 09/18/2024 3:15 PM [facility] ALT (SGPT) 25 10 - 60 unit/L LAB CHEMISTRY METHOD 09/18/2024 3:15 PM [facility] Alkaline Phosphatase 61 42 - 121 unit/L LAB CHEMISTRY METHOD 09/18/2024 3:15 PM [facility] Total Protein 7.3 6.0 - 8.0 g/dL LAB CHEMISTRY METHOD 09/18/2024 3:15 PM EST [facility] Albumin 4.2 3.2 - 5.0 g/dL LAB CHEMISTRY METHOD 09/18/2024 3:15 PM EST [facility] Total Bilirubin 0.4 0.0 - 1.4 mg/dL LAB CHEMISTRY METHOD 09/18/2024 3:15 PM EST [facility] Blood Venous blood specimen / Unknown Venipuncture / Unknown 09/18/2024 10:47 AM EST 09/18/2024 10:47 AM EST Shasta Leigh INTERIOR PAINTER LAB BLOOD ORDERABLES Pari l Result [facility] [address] [place] [address], * Hepatitis C Screening (03/26/2014) Hepatitis C Screening negative Historical Provider HEALTH MAINTENANCE Final Result from Last 3 Months or Most Recently Relevant to Health Maintenance Insurance [employer] Care Teams Housecleaner Relationship Specialty Start Date End Date [facility]ole Morales MD [address] [facility] [place] P[facility] - General Internal Medicine 02/07/25
== END 2025-04-05 11:30 | disposition home or self-care (01) ==
LOC: HO.HSMS 10:25
PROVIDERS: PCP Internal Medicine; Visit Provider Nurse Practitioner Family
DX: G62.9 Polyneuropathy, unspecified (principal); R76.8 Other specified abnormal immunological findings in serum; M25.50 Pain in unspecified joint; G47.9 Sleep disorder, unspecified
CPT/HCPCS: 99214

== ENCOUNTER → 2025-04-05 10:24 | Outpatient (BNVA) | payer OTHER, SELFPAY | PROVIDERS: PCP Internal Medicine; Visit Provider Nurse Practitioner Family | DX: G62.9 Polyneuropathy, unspecified (principal); R76.8 Other specified abnormal immunological findings in serum; M25.50 Pain in unspecified joint; G47.9 Sleep disorder, unspecified; E53.1 Pyridoxine deficiency | CPT/HCPCS: 99212 ==